=== PATIENT | female | born 1990 | race Caucasian/White ===

== ENCOUNTER 2020-11-25 11:00 | Outpatient (RCR) | payer OTHER, SELFPAY | END 2021-11-09 10:16 | disposition home or self-care (01) | LOC: HO.OT 11:00 | PROVIDERS: PCP Nurse Practitioner Family; Visit Provider Nurse Practitioner Family | DX: M77.8 Other enthesopathies, not elsewhere classified (principal) | CPT/HCPCS: 29125; 97033; 97035; 97110; 97140; 97167; 97530; 97760 ==

== ENCOUNTER 2020-12-10 07:59 | Outpatient (REF) | payer OTHER, SELFPAY ==
[2020-12-10 10:23] LABS: Hematocrit 41.5 % (37-47); Hemoglobin 13.4 g/dl (12.0-16.0); Mean Corpuscular HGB Conc 32.3 g/dl (31.0-35.0); Mean Corpuscular Volume 89.8 fL (80-98); Mean Platelet Volume 11.3 fL (9.4-12.3); Platelet Count 269 X10*3/uL (160-400); Red Blood Count 4.62 X10*6/uL (4.20-5.50); Red Cell Distribution Width 12.5 % (11.0-16.0); White Blood Count 8.5 X10*3/uL (4.8-10.8)
[2020-12-10 10:45] LABS: Alanine Aminotransferase 24 U/L (0-31); Albumin Level 4.5 g/dL (3.5-5.0); Alkaline Phosphatase 61 U/L (39-117); Anion Gap 13 (12-20); Aspartate Amino Transferase 23 U/L (5-31); Bilirubin Total 0.6 mg/dL (0.0-1.0); Blood Urea Nitrogen 8 mg/dL (9-16); C Reactive Protein 0.38 mg/dL (< or = 0.50); Calcium 9.4 mg/dL (8.4-10.2); Carbon Dioxide 26 mmol/L (22-29); Chloride 106 mmol/L (96-108); Estimated Glomerular Filt Rate > 60; Glucose Random 101 mg/dL (60-115); Potassium 4.5 mmol/L (3.3-5.1); Sodium 140 mmol/L (135-145); Total Protein 7.6 g/dL (6.5-8.0)
[2020-12-10 11:17] LABS: Erythrocyte Sedimentation Rate 12 MM/HR (0-20)
[2020-12-11 22:37] LABS: Transglutaminase Ab IgG 1 U/mL; Transglutaminase IgA 1 U/mL
== END 2020-12-10 08:00 | disposition home or self-care (01) ==
LOC: HO.LAB 07:59
PROVIDERS: PCP Nurse Practitioner Family; Visit Provider Nurse Practitioner Family
DX: R10.9 Unspecified abdominal pain (principal); R19.4 Change in bowel habit
CPT/HCPCS: 36415; 80053; 83516; 85027; 85652; 86140

== ENCOUNTER → 2020-12-24 07:58 | Outpatient (BNVA) | payer OTHER, SELFPAY | PROVIDERS: PCP Nurse Practitioner Family; Referring Provider Nurse Practitioner Family; Visit Provider Nurse Practitioner Family ==

== ENCOUNTER 2020-12-26 21:04 | Emergency (ER) | payer OTHER, SELFPAY ==
--- NOTE | ~2020-12-26 | CT_ITS ---
EXAMINATION: CT ABDOMEN AND PELVIS WITHOUT CONTRAST CLINICAL INFORMATION: Right lower quadrant pain. COMPARISON: None TECHNIQUE: Multidetector volumetric imaging was performed from the superior aspect of the liver through the pubic symphysis. Sagittal and coronal reformatted images were obtained on the technologist's workstation. This CT examination was performed using dose optimization techniques as appropriate, variously including the following: *Automated exposure control *Adjustment of mA and/or kV according to patient size (this includes techniques or standardized protocols for targeted exams where dose is matched to indication/reason for exam; i.e. extremities or head) *Use of iterative reconstruction technique DLP: 807 mGy-cm FINDINGS: LUNG BASES: The visualized lung bases are unremarkable. LIVER, GALLBLADDER, AND BILIARY TREE: The liver is normal in size, shape, and attenuation. No focal hepatic lesion or biliary ductal dilatation is present. Status post cholecystectomy. PANCREAS: Unremarkable. SPLEEN: Unremarkable. ADRENAL GLANDS: Unremarkable. KIDNEYS AND URETERS: The kidneys are normal in size, shape, and attenuation. No hydronephrosis, hydroureter, or calculi seen. No perinephric stranding. BLADDER: Unremarkable. GASTROINTESTINAL TRACT: The small and large bowel are unremarkable. The appendix is unremarkable. ABDOMINAL WALL: No significant hernia is appreciated. LYMPH NODES: Normal. VASCULAR: Unremarkable. PELVIC VISCERA: Unremarkable. OSSEOUS STRUCTURES: Unremarkable. CT/CT abdomen pelvis wo con IMPRESSION: Normal CT scan abdomen and pelvis. Normal appendix.
[2020-12-26 21:24] VITALS: BP 146/94; PULSE 84; RESP 22; TEMP 37.1; O2SAT 95; BMI 33.6
--- NOTE | 2020-12-26 21:54 | ED_ITS ---
HPI - Abdominal Pain General Chief Complaint: Abdominal Pain Stated Complaint: APPENDIX? Time Seen by Provider: 12/26/20 21:54 Source: patient Mode of arrival: ambulatory Limitations: no limitations History of Present Illness HPI narrative: Patient with history of IBS chronic abdominal pain issues noticed pain in the right side of abdomen for last 2 hour acute onset associated with nausea and vomiting which is chronic and had multiple times but pain on the right side is new patient feel it is appendicitis no history of kidney stone or urinary complaints no fever or chills no diarrhea no blood in stool or urine Related Data Home Medications Medication Instructions Recorded Confirmed citalopram 40 mg tablet 40 mg PO DAILY 12/09/20 ondansetron 4 mg disintegrating 4 mg PO Q8H 12/09/20 tablet hyoscyamine sulfate 0.125 mg tablet 0.25 mg PO QID PRN 12/10/20 Previous Rx's Medication Instructions Recorded lactobacillus combination no.8 3 3,000 mmu cells PO DAILY #30 cap 12/10/20 billion cell capsule bisacodyl 5 mg tablet,delayed 10 mg PO ONCE 1 Days #2 tab 12/24/20 release docusate sodium 100 mg capsule 100 mg PO BEDTIME #10 cap 12/24/20 polyethylene glycol 3350 17 238 g PO ONCE #238 g 12/24/20 gram/dose oral powder psyllium husk 0.52 gram capsule 0.52 g PO DAILY #30 cap 12/24/20 Allergies Allergy/AdvReac Type Severity Reaction Status Date / Time No Known Allergies Allergy Verified 12/24/20 08:15 Review of Systems Review of Systems Constitutional : No Weight loss, No Fever, No Chills , anxious++ ENT/Mouth : No sore throat, No Rhinorrhea Eyes: No Eye Pain, No Swelling Cardiovascular : No Chest Pain, no palpitations Respiratory : No Cough, No Sputum, no shortness of breath Gastrointestinal : + Nausea, +Vomiting, No Diarrhea, +abdominal Pain, no black stools Genitourinary : No Dysuria, No Urinary Frequency Musculoskeletal : No joint pain, No Myalgias, No Joint Swelling Skin : No Skin Lesions, No rash Neuro : No Weakness, No Numbness, No Dizziness, No Headache Psych : No Anxiety/Panic, No Depression Heme/Lymph: No Bruising, No Lymphadenopathy Endocrine : No Polyuria, No Polydipsia All other systems reviewed and are negative Physical Exam Vital Signs: Vital Signs: Last Vital Signs Temp 98.4 F 12/26/20 22:51 Pulse 71 12/26/20 22:51 Resp 18 12/26/20 22:51 BP 111/65 12/26/20 22:51 Pulse Ox 97 12/26/20 22:51 Body Mass Index 33.6 Appearance: Alert. Oriented X3. Moderate distress. Anxious Eyes: PERRLA, No Nystagmus ENT: Pharynx normal. Oral Mucosa moist Neck: Normal inspection. Neck supple. CVS: Normal heart rate and rhythm. Pulses normal. Respiratory: No respiratory distress. Equal air entry bilateral, no wheezing/rales/rhonchi Abdomen: Soft , tenderness in the right mid and lower quadrant with guarding, no rebound tenderness . Bowel sounds are present, no mass palpable, no CVA tenderness Skin: Skin warm and dry. Normal skin color. Normal skin turgor. Extremities: No lower extremity edema. No calf tenderness Neuro: Oriented X 3. No motor deficit. No sensory deficit.No cerebellar signs , cranial nerves II-XII intact MDM - Abdominal Pain MDM Narrative Medical decision making narrative: Patient's CT scan negative for any acute pathology likely abdominal pain is from gas bubble or IBS labs are stable to discharge patient home Lab Data Attestation: I reviewed the patient's lab results. Result diagrams: 12/26/20 22:09 12/26/20 22:09 Labs: Lab Results 12/26/20 12/26/20 Range/Units 22:09 22:09 WBC 7.8 (4.8-10.8) X10*3/uL RBC 4.37 (4.20-5.50) X10*6/uL Hgb 12.8 (12.0-16.0) g/dl Hct 38.3 (37-47) % MCV 87.6 (80-98) fL MCH 29.3 (27.0-33.0) pg MCHC 33.4 (31.0-35.0) g/dl RDW 12.5 (11.0-16.0) % Plt Count 244 (160-400) X10*3/uL MPV 11.2 (9.4-12.3) fL Immature Gran % (Auto) 0.1 (0.0-0.4) % Neut % (Auto) 58.3 (45-73) % Lymph % (Auto) 32.7 (20-40) % [place] % (Auto) 8.0 (2-11) % Eos % (Auto) 0.5 (0-4) % Baso % (Auto) 0.4 (0-2) % Lymph # (Auto) 2.5 (1.2-4.9) X10*3/uL [place] # (Auto) 0.6 (0.1-1.2) X10*3/uL Eos # (Auto) 0.0 (0.0-0.4) X10*3/uL Baso # (Auto) 0.0 (0.0-0.2) X10*3/uL Abs Immat Gran (auto) 0.01 (0.00-0.03) X10*3/uL Absolute Neuts (auto) 4.5 (2.0-8.3) X10*3/uL Absolute Nucleated RBC 0.000 (0.0-0.012) X10*3/uL Nucleated RBC % (auto) 0.0 (0.0-0.2) /100WBC Sodium 141 (135-145) mmol/L Potassium 3.9 (3.3-5.1) mmol/L Chloride 108 (96-108) mmol/L Carbon Dioxide 24 (22-29) mmol/L Anion Gap 13 (12-20) BUN 10 (9-16) mg/dL Creatinine 0.95 (0.5-1.4) mg/dL Estim Creat Clear Calc 105.7 Estimated GFR > 60 Random Glucose 108 (60-115) mg/dL Calcium 9.4 (8.4-10.2) mg/dL Total Bilirubin 0.5 (0.0-1.0) mg/dL Direct Bilirubin 0.2 (0.0-0.5) mg/dL AST 26 (5-31) U/L ALT 30 (0-31) U/L Alkaline Phosphatase 58 (39-117) U/L Total Protein 7.1 (6.5-8.0) g/dL Albumin 4.2 (3.5-5.0) g/dL Lipase 13 (8-78) U/L Discharge Plan Discharge Clinical Impression: Abdominal pain Qualifiers: Abdominal location: right lower quadrant Qualified Code(s): R10.31 - Right lower quadrant pain Patient Disposition: Home, Self-Care Instructions: Abdominal Pain (ED) Additional Instructions: Follow-up with your primary care doctor continue taking medication as prescribed by PCP Prescriptions: No Action citalopram 40 mg tablet 40 mg PO DAILY RF: 0 ondansetron 4 mg tablet,disintegrating 4 mg PO Q8H RF: 0 hyoscyamine sulfate 0.125 mg tablet 0.25 mg PO QID PRNRF: 0 Adult Probiotic 3 billion cell capsule 3,000 mmu cells PO DAILY Qty: 30 RF: 2 bisacodyl [Dulcolax (bisacodyl)] 5 mg tablet,delayed release (DR/EC) 10 mg PO ONCE 1 Days Qty: 2 RF: 0 docusate sodium 100 mg capsule 100 mg PO BEDTIME Qty: 10 RF: 0 polyethylene glycol 3350 [Miralax] 17 gram/dose powder 238 g PO ONCE Qty: 238 RF: 0 psyllium husk [Metamucil] 0.52 gram capsule 0.52 g PO DAILY Qty: 30 RF: 4 PMFSH Past Medical History Medical History Cholecystectomy planned Surgical History Hx of tonsillectomy Family History Family History Mother Heart disease Social History Social History Household Members: None Alcohol intake: never Patient Tobacco Use Status: Never used Tobacco Substance Use Type: Marijuana Advance Directives: No Advance Directives Information Provided: Yes Current occupational status: employed 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
[2020-12-26 22:14] LABS: MANUAL DIFF FLAG NO
[2020-12-26 22:15] LABS: Basophils Percent Auto 0.4 % (0-2); Eosinophils Percent Auto 0.5 % (0-4); Hematocrit 38.3 % (37-47); Hemoglobin 12.8 g/dl (12.0-16.0); Imm Gran Abs Auto 0.01 X10*3/uL (0.00-0.03); Imm Gran Pct Auto 0.1 % (0.0-0.4); Lymphocytes Absolute Auto 2.5 X10*3/uL (1.2-4.9); Lymphocytes Percent Auto 32.7 % (20-40); Mean Corpuscular HGB Conc 33.4 g/dl (31.0-35.0); Mean Corpuscular Hemoglobin 29.3 pg (27.0-33.0); Mean Corpuscular Volume 87.6 fL (80-98); Mean Platelet Volume 11.2 fL (9.4-12.3); Monocytes Absolute Auto 0.6 X10*3/uL (0.1-1.2); Neutrophils Absolute Auto 4.5 X10*3/uL (2.0-8.3); Neutrophils Percent Auto 58.3 % (45-73); Platelet Count 244 X10*3/uL (160-400); Red Blood Count 4.37 X10*6/uL (4.20-5.50); Red Cell Distribution Width 12.5 % (11.0-16.0); White Blood Count 7.8 X10*3/uL (4.8-10.8)
[2020-12-26] MEDS: Ketorolac Tromethamine 30 MG/ML VIAL IVPUSH (22:39)
[2020-12-26] MEDS: 0.9 % Sodium Chloride 1,000 ML 999 ML IVCONT (22:39)
[2020-12-26] MEDS: ondansetron HCL 4 MG/2 ML VIAL IVPUSH (22:40)
[2020-12-26 22:50] LABS: Alanine Aminotransferase 30 U/L (0-31); Albumin Level 4.2 g/dL (3.5-5.0); Alkaline Phosphatase 58 U/L (39-117); Anion Gap 13 (12-20); Aspartate Amino Transferase 26 U/L (5-31); Bilirubin Direct 0.2 mg/dL (0.0-0.5); Bilirubin Total 0.5 mg/dL (0.0-1.0); Blood Urea Nitrogen 10 mg/dL (9-16); Calcium 9.4 mg/dL (8.4-10.2); Carbon Dioxide 24 mmol/L (22-29); Chloride 108 mmol/L (96-108); Creatinine Clr Calc Pharmacy 105.7; Estimated Glomerular Filt Rate > 60; Glucose Random 108 mg/dL (60-115); Lipase 13 U/L (8-78); Potassium 3.9 mmol/L (3.3-5.1); Sodium 141 mmol/L (135-145); Total Protein 7.1 g/dL (6.5-8.0)
[2020-12-26 22:51] VITALS: BP 111/65; PULSE 71; RESP 18; TEMP 36.9; O2SAT 97
--- NOTE | 2020-12-27 00:01 | PC.NURSE ---
PT GIVEN A LIST OF PROVIDERS.
== END 2020-12-27 00:02 | disposition home or self-care (01) ==
PROVIDERS: Emergency Provider Internal Medicine
DX: R10.31 Right lower quadrant pain (principal)
CPT/HCPCS: 36415; 74176; 80048; 80076; 83690; 85025; 96361; 96374; 96375; 99284; J1885; J2405

== ENCOUNTER 2020-12-31 12:54 | Outpatient (REF) | payer OTHER, SELFPAY ==
--- NOTE | ~2020-12-31 | US_ITS ---
EXAMINATION: US PELVIS TRANSVAGINAL CLINICAL INFORMATION: Right lower quadrant pain COMPARISON: CT scan of December 26, 2020. TECHNIQUE: Transcutaneous and transvaginal pelvic ultrasound. Transvaginal scanning was performed after voiding to better evaluate the endometrium and adnexa. FINDINGS: The uterus measures 8.3 x 3.5 x 4.2 cm. The uterus is anteverted. No suspicious abnormalities region of the cervix. 3 mm nabothian cyst present. The uterine contour is smooth. The endometrium measures 0.5 cm. No focal abnormalities within the myometrium. The right ovary measures approximately 2.6 x 2.4 x 2.1 cm. The calculated right ovarian volume is approximately 6.7 mL. No suspicious right adnexal findings. The left ovary measures 3.0 x 2.2 x 2.3 cm. The calculated left ovarian volume is approximately 7.9 mL. No left adnexal abnormality appreciated. No free pelvic fluid. US/US pelvic and transvaginal IMPRESSION: No suspicious abnormality appreciated.
== END 2020-12-31 12:55 | disposition home or self-care (01) ==
LOC: HO.HMGCX 12:54
PROVIDERS: PCP Nurse Practitioner Family; Visit Provider Physician Assistant
DX: R10.31 Right lower quadrant pain (principal)
CPT/HCPCS: 76830; 76856

== ENCOUNTER 2021-01-01 09:38 | Emergency (ER) | payer OTHER, SELFPAY ==
--- NOTE | ~2021-01-01 | CT_ITS ---
EXAMINATION: CT ABDOMEN AND PELVIS WITH CONTRAST CLINICAL INFORMATION: Right-sided abdominal pain status post laparoscopic cholecystectomy COMPARISON: Previous CT of the abdomen and pelvis 12/26/2020 and pelvic ultrasound 12/31/2020 TECHNIQUE: Multidetector volumetric images were obtained from the superior aspect of the liver through the pubic symphysis following administration 85 mL of Omnipaque 350 intravenous contrast. Sagittal and coronal reformatted images were obtained on the technologist's workstation. Oral contrast: Yes This CT examination was performed using dose optimization techniques as appropriate, variously including the following: *Automated exposure control *Adjustment of mA and/or kV according to patient size (this includes techniques or standardized protocols for targeted exams where dose is matched to indication/reason for exam; i.e. extremities or head) *Use of iterative reconstruction technique DLP: 885 mGy-cm FINDINGS: LUNG BASES: The visualized lung bases are unremarkable. LIVER, GALLBLADDER, AND BILIARY TREE: The liver is normal in size, shape, and attenuation. No focal hepatic lesion or biliary ductal dilatation is present. The gallbladder has been removed. PANCREAS: Unremarkable. SPLEEN: Unremarkable. ADRENAL GLANDS: Unremarkable. KIDNEYS AND URETERS: The kidneys are normal in size, shape, and attenuation. No hydronephrosis, hydroureter, or calculi seen. No perinephric stranding. BLADDER: Unremarkable. GASTROINTESTINAL TRACT: There is question of mild wall thickening of the colon, particularly the distal transverse colon and left colon. Small and large bowel is otherwise unremarkable. The appendix is unremarkable. The stomach is unremarkable. ABDOMINAL WALL: No significant hernia is appreciated. LYMPH NODES: Normal. VASCULAR: Unremarkable. PELVIC VISCERA: Unremarkable. OSSEOUS STRUCTURES: Unremarkable. CT/CT abdomen pelvis w con IMPRESSION: Question mild colitis of the colon.
--- NOTE | 2021-01-01 09:42 | ED_ITS ---
HPI - Abdominal Pain General Chief Complaint: Abdominal Pain Stated Complaint: abd pain Time Seen by Provider: 01/01/21 09:41 Source: patient Mode of arrival: ambulatory Limitations: no limitations History of Present Illness HPI narrative: 30 yo female with hx of IBS seen on 12/26 for abdominal pain at at that time had CT scan which showed no acute pathology. She also had US of pelvis on 12/31 that was normal MD elicited complaint: abdominal pain Pertinent past history: other (IBS) Onset (ago): day(s) (since Monday) Pain Consistency: constant Location: RLQ Severity: severe Quality: stabbing and burning Exacerbating factors: nothing Relieving factors: nothing Associated symptoms: nausea, vomiting and diarrhea Related Data Home Medications Medication Instructions Recorded Confirmed citalopram 40 mg tablet 40 mg PO DAILY 12/09/20 ondansetron 4 mg disintegrating 4 mg PO Q8H 12/09/20 tablet hyoscyamine sulfate 0.125 mg tablet 0.25 mg PO QID PRN 12/10/20 Previous Rx's Medication Instructions Recorded lactobacillus combination no.8 3 3,000 mmu cells PO DAILY #30 cap 12/10/20 billion cell capsule bisacodyl 5 mg tablet,delayed 10 mg PO ONCE 1 Days #2 tab 12/24/20 release docusate sodium 100 mg capsule 100 mg PO BEDTIME #10 cap 12/24/20 polyethylene glycol 3350 17 238 g PO ONCE #238 g 12/24/20 gram/dose oral powder psyllium husk 0.52 gram capsule 0.52 g PO DAILY #30 cap 12/24/20 ciprofloxacin HCl 500 mg PO BID 7 Days #14 tab 01/01/21 metoclopramide HCl [Reglan] 10 mg PO Q6H PRN #20 tab 01/01/21 metronidazole [Flagyl] 500 mg PO BID 7 Days #14 tab 01/01/21 oxycodone 5 mg PO Q6H PRN #14 tab 01/01/21 Allergies Allergy/AdvReac Type Severity Reaction Status Date / Time No Known Allergies Allergy Verified 12/24/20 08:15 Review of Systems Review of Systems Constitutional : No Weight loss, No Fever, No Chills ENT/Mouth : No sore throat, No Rhinorrhea Eyes: No Swelling, No Redness Cardiovascular : No Chest Pain, No SOB, NoEdema Respiratory : No Cough, No Sputum, No Wheezing Gastrointestinal : Positive Nausea, Positive Vomiting, positive Diarrhea, positive abdominal Pain, No Hematochezia, No Melena Genitourinary : No Dysuria, No Urinary Frequency, No Hematuria, No Urgency Musculoskeletal : No joint pain, No Myalgias, No Joint Swelling Skin : No Skin Lesions, No rash Neuro : No Weakness, No Numbness, No Dizziness, No Headache Psych : No Anxiety/Panic, No Depression Heme/Lymph: No Bruising, No Lymphadenopathy Endocrine : No Polyuria, No Polydipsia All other systems reviewed and are negative. Physical Exam Vital Signs: Vital Signs: Last Vital Signs Temp 98.4 F 01/01/21 09:43 Pulse 57 01/01/21 14:33 Resp 16 01/01/21 14:33 BP 102/68 01/01/21 14:33 Pulse Ox 97 01/01/21 14:33 Body Mass Index 33.3 Appearance: Alert. Oriented X3. No acute distress. Eyes: Pupils equal, round and reactive to light. ENT: Pharynx normal. Neck: Normal inspection. Neck supple. CVS: Normal heart rate and rhythm. Pulses normal. Respiratory: No respiratory distress. Breath sounds normal. Abdomen: Soft and mild RLQ ttp no rebound or guarding Skin: Skin warm and dry. Normal skin color. Normal skin turgor. Extremities: No lower extremity edema. No calf ttp Neuro: Oriented X 3. No motor deficit. No sensory deficit. Course Course Course Narrative: given LFTs will repeat CT Scan for retained stone CT scan mild colitis, able to tolerate PO, labs stable VS stable can follow up with GI as outpatient her pain is on R side which does not correlate with her c/o R sided pain bili normal mild bump in LFTs - no concern for hepatitis, has been taking extra strength tylenol for pain for the last week doubt hepatotoxicity can follow up and recheck taking 3 to 4 doses a day, prior cholecystectomy, message sent to TEODORO Christian from GI as Leeanne is supposed to follow with her, will start on antibiotics and pain medications - we discussed stopping tylenol prior to DC MDM - Abdominal Pain MDM Narrative Medical decision making narrative: 30 yo female with hx of IBS seen on 12/26 for abdominal pain at at that time had CT scan which showed no acute pathology. She also had US of pelvis on 12/31 that was normal at this time will repeat labs, UA, IVF, IV medications for symptoms control, just had CT scan and US if sig lab derangement will consider repeat imaging. Differential Diagnosis Differential diagnosis: Likely abdominal pain and gastroenteritis; Unlikely calculus of kidney, mesenteric ischemia and ovarian cyst Lab Data Result diagrams: 01/01/21 10:02 01/01/21 10:02 Labs: Lab Results 01/01/21 01/01/21 01/01/21 Range/Units 10:02 10:02 11:09 WBC 8.2 (4.8-10.8) X10*3/uL RBC 4.52 (4.20-5.50) X10*6/uL Hgb 13.4 (12.0-16.0) g/dl Hct 39.3 (37-47) % MCV 86.9 (80-98) fL MCH 29.6 (27.0-33.0) pg MCHC 34.1 (31.0-35.0) g/dl RDW 12.5 (11.0-16.0) % Plt Count 277 (160-400) X10*3/uL MPV 11.5 (9.4-12.3) fL Immature Gran % (Auto) 0.1 (0.0-0.4) % Neut % (Auto) 62.9 (45-73) % Lymph % (Auto) 30.5 (20-40) % [place] % (Auto) 6.0 (2-11) % Eos % (Auto) 0.1 (0-4) % Baso % (Auto) 0.4 (0-2) % Lymph # (Auto) 2.5 (1.2-4.9) X10*3/uL [place] # (Auto) 0.5 (0.1-1.2) X10*3/uL Eos # (Auto) 0.0 (0.0-0.4) X10*3/uL Baso # (Auto) 0.0 (0.0-0.2) X10*3/uL Abs Immat Gran (auto) 0.01 (0.00-0.03) X10*3/uL Absolute Neuts (auto) 5.1 (2.0-8.3) X10*3/uL Absolute Nucleated RBC 0.000 (0.0-0.012) X10*3/uL Nucleated RBC % (auto) 0.0 (0.0-0.2) /100WBC Sodium 140 (135-145) mmol/L Potassium 4.3 (3.3-5.1) mmol/L Chloride 109 H (96-108) mmol/L Carbon Dioxide 21 L (22-29) mmol/L Anion Gap 14 (12-20) BUN 7 L (9-16) mg/dL Creatinine 0.82 (0.5-1.4) mg/dL Estim Creat Clear Calc 121.9 Estimated GFR > 60 Random Glucose 99 (60-115) mg/dL Calcium 9.2 (8.4-10.2) mg/dL Magnesium 2.2 (1.6-2.6) mg/dL Total Bilirubin 0.6 (0.0-1.0) mg/dL Direct Bilirubin 0.2 (0.0-0.5) mg/dL AST 131 H (5-31) U/L ALT 136 H (0-31) U/L Alkaline Phosphatase 65 (39-117) U/L C-Reactive Protein 0.29 (< or = 0.50) mg/dL Total Protein 7.5 (6.5-8.0) g/dL Albumin 4.4 (3.5-5.0) g/dL Lipase 15 (8-78) U/L Urine Color YELLOW Urine Appearance CLEAR Urine pH 7.0 (5.0-8.0) Ur Specific Cand[place] 1.010 (1.005-1.025) Urine Protein NEG (NEG-TRACE) MG/DL Urine Glucose (UA) NEG (NEG) MG/DL Urine Ketones 15 (NEG) MG/DL Urine Blood NEG (NEG) Urine Nitrite NEG (NEG) Ur Leukocyte Esterase NEG (NEG) Urine Test (NEGATIVE) 01/01/21 Range/Units 11:09 WBC (4.8-10.8) X10*3/uL RBC (4.20-5.50) X10*6/uL Hgb (12.0-16.0) g/dl Hct (37-47) % MCV (80-98) fL MCH (27.0-33.0) pg MCHC (31.0-35.0) g/dl RDW (11.0-16.0) % Plt Count (160-400) X10*3/uL MPV (9.4-12.3) fL Immature Gran % (Auto) (0.0-0.4) % Neut % (Auto) (45-73) % Lymph % (Auto) (20-40) % [place] % (Auto) (2-11) % Eos % (Auto) (0-4) % Baso % (Auto) (0-2) % Lymph # (Auto) (1.2-4.9) X10*3/uL [place] # (Auto) (0.1-1.2) X10*3/uL Eos # (Auto) (0.0-0.4) X10*3/uL Baso # (Auto) (0.0-0.2) X10*3/uL Abs Immat Gran (auto) (0.00-0.03) X10*3/uL Absolute Neuts (auto) (2.0-8.3) X10*3/uL Absolute Nucleated RBC (0.0-0.012) X10*3/uL Nucleated RBC % (auto) (0.0-0.2) /100WBC Sodium (135-145) mmol/L Potassium (3.3-5.1) mmol/L Chloride (96-108) mmol/L Carbon Dioxide (22-29) mmol/L Anion Gap (12-20) BUN (9-16) mg/dL Creatinine (0.5-1.4) mg/dL Estim Creat Clear Calc Estimated GFR Random Glucose (60-115) mg/dL Calcium (8.4-10.2) mg/dL Magnesium (1.6-2.6) mg/dL Total Bilirubin (0.0-1.0) mg/dL Direct Bilirubin (0.0-0.5) mg/dL AST (5-31) U/L ALT (0-31) U/L Alkaline Phosphatase (39-117) U/L C-Reactive Protein (< or = 0.50) mg/dL Total Protein (6.5-8.0) g/dL Albumin (3.5-5.0) g/dL Lipase (8-78) U/L Urine Color Urine Appearance Urine pH (5.0-8.0) Ur Specific [place] (1.005-1.025) Urine Protein (NEG-TRACE) MG/DL Urine Glucose (UA) (NEG) MG/DL Urine Ketones (NEG) MG/DL Urine Blood (NEG) Urine Nitrite (NEG) Ur Leukocyte Esterase (NEG) Urine Test NEGATIVE (NEGATIVE) Discharge Plan Discharge Clinical Impression: Colitis, Elevated liver function tests Abdominal pain Qualifiers: Abdominal location: right lower quadrant Qualified Code(s): R10.31 - Right lower quadrant pain Vomiting Qualifiers: Vomiting type: unspecified Vomiting Intractability: non-intractable Nausea presence: with nausea Qualified Code(s): R11.2 - Nausea with vomiting, unspecified Patient Disposition: Home, Self-Care Instructions: Colitis (ED) Additional Instructions: return to ED for any worsening symptoms or concerns Prescriptions: New ciprofloxacin HCl 500 mg tablet 500 mg PO BID 7 Days Qty: 14 RF: 0 metoclopramide HCl [Reglan] 10 mg tablet 10 mg PO Q6H PRN (Reason: nausea and vomiting) Qty: 20 RF: 0 metronidazole [Flagyl] 500 mg tablet 500 mg PO BID 7 Days Qty: 14 RF: 0 oxycodone 5 mg tablet 5 mg PO Q6H PRN (Reason: pain) Qty: 14 RF: 0 No Action citalopram 40 mg tablet 40 mg PO DAILY RF: 0 ondansetron 4 mg tablet,disintegrating 4 mg PO Q8H RF: 0 hyoscyamine sulfate 0.125 mg tablet 0.25 mg PO QID PRNRF: 0 Adult Probiotic 3 billion cell capsule 3,000 mmu cells PO DAILY Qty: 30 RF: 2 bisacodyl [Dulcolax (bisacodyl)] 5 mg tablet,delayed release (DR/EC) 10 mg PO ONCE 1 Days Qty: 2 RF: 0 docusate sodium 100 mg capsule 100 mg PO BEDTIME Qty: 10 RF: 0 polyethylene glycol 3350 [Miralax] 17 gram/dose powder 238 g PO ONCE Qty: 238 RF: 0 psyllium husk [Metamucil] 0.52 gram capsule 0.52 g PO DAILY Qty: 30 RF: 4 Referrals: Marie Archibald MD [Physician] - 2 days (call Monday to follow up with Anahi) Interventions: ED Discharge Assessment Last Done: 01/01/21 15:16 Discharge Date/Time: 01/01/21 15:16 [facility] Past Medical History Attestation statement: The following information was validated with the patient. Medical History (Updated 01/01/21 @ 16:02 by Susan Coppola DO) Cholecystectomy planned IBS (irritable bowel syndrome) Surgical History Hx laparoscopic cholecystectomy Hx of tonsillectomy Family History Family History Mother Heart disease Social History Social History Household Members: None Alcohol intake: never Patient Tobacco Use Status: Never used Tobacco Use of substances other than those prescribed or required for medical reasons: Yes Substance Use Type: Marijuana Advance Directives: Yes Advance Directives Information Provided: No Advance Directives on File: No Current occupational status: employed 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
[2021-01-01 09:43] VITALS: BP 128/96; PULSE 92; RESP 20; TEMP 36.9; O2SAT 98; BMI 33.3
[2021-01-01] MEDS: 0.9 % Sodium Chloride 1,000 ML 999 ML IVCONT ×2 (10:04→12:01)
[2021-01-01] MEDS: diphenhydrAMINE HCL 50 MG/ML VIAL 25 MG IVPUSH (10:09)
[2021-01-01] MEDS: Ketorolac Tromethamine 30 MG/ML VIAL IVPUSH (10:10)
[2021-01-01 10:11] LABS: MANUAL DIFF FLAG NO
[2021-01-01 10:13] LABS: Basophils Percent Auto 0.4 % (0-2); Eosinophils Percent Auto 0.1 % (0-4); Hematocrit 39.3 % (37-47); Hemoglobin 13.4 g/dl (12.0-16.0); Imm Gran Abs Auto 0.01 X10*3/uL (0.00-0.03); Imm Gran Pct Auto 0.1 % (0.0-0.4); Lymphocytes Absolute Auto 2.5 X10*3/uL (1.2-4.9); Lymphocytes Percent Auto 30.5 % (20-40); Mean Corpuscular HGB Conc 34.1 g/dl (31.0-35.0); Mean Corpuscular Hemoglobin 29.6 pg (27.0-33.0); Mean Corpuscular Volume 86.9 fL (80-98); Mean Platelet Volume 11.5 fL (9.4-12.3); Monocytes Absolute Auto 0.5 X10*3/uL (0.1-1.2); Neutrophils Absolute Auto 5.1 X10*3/uL (2.0-8.3); Neutrophils Percent Auto 62.9 % (45-73); Platelet Count 277 X10*3/uL (160-400); Red Blood Count 4.52 X10*6/uL (4.20-5.50); Red Cell Distribution Width 12.5 % (11.0-16.0); White Blood Count 8.2 X10*3/uL (4.8-10.8)
[2021-01-01] MEDS: Metoclopramide HCl 10 MG/2 ML VIAL IVPUSH (10:13)
--- NOTE | 2021-01-01 10:17 | MHC.CM.ED ---
Received notification from Niya SILVER that patient was able to ambulate to the bathroom without pain and wants to be discharged home. Met with patient and daughter. Both are agreeable to discharge home with referral to [facility]. Patient was active with [facility] in the past. Referral made via [facility]. Patient's daughter will transport patient home. Dr Coppola and Niya SILVER aware. Continue to monitor for d/c needs.
[2021-01-01 10:18] VITALS: BP 131/80; PULSE 74; RESP 18; O2SAT 100
[2021-01-01 10:42] LABS: Alanine Aminotransferase 136 U/L (0-31); Albumin Level 4.4 g/dL (3.5-5.0); Alkaline Phosphatase 65 U/L (39-117); Aspartate Amino Transferase 131 U/L (5-31); Bilirubin Direct 0.2 mg/dL (0.0-0.5); Bilirubin Total 0.6 mg/dL (0.0-1.0); C Reactive Protein 0.29 mg/dL (< or = 0.50); Lipase 15 U/L (8-78); Magnesium 2.2 mg/dL (1.6-2.6); Total Protein 7.5 g/dL (6.5-8.0)
[2021-01-01 11:08] VITALS: BP 97/57; PULSE 67; RESP 17; O2SAT 96
[2021-01-01 11:29] LABS: Appearance Urine CLEAR; Color Urine YELLOW; Glucose Urine UA NEG (NEG); Leukocyte Esterase Urine NEG (NEG); Nitrite Urine NEG (NEG); Urine Blood NEG (NEG); Urine Ketones 15 MG/DL (NEG); Urine Protein NEG (NEG-TRACE)
[2021-01-01 11:29] LABS: Anion Gap 14 (12-20); Blood Urea Nitrogen 7 mg/dL (9-16); Calcium 9.2 mg/dL (8.4-10.2); Carbon Dioxide 21 mmol/L (22-29); Chloride 109 mmol/L (96-108); Creatinine Clr Calc Pharmacy 121.9; Estimated Glomerular Filt Rate > 60; Glucose Random 99 mg/dL (60-115); Potassium 4.3 mmol/L (3.3-5.1); Sodium 140 mmol/L (135-145)
[2021-01-01 11:30] LABS: UPreg QC Valid YES; Urine Pregnancy NEGATIVE (NEGATIVE)
[2021-01-01 12:00] VITALS: BP 123/72; PULSE 61; RESP 17; O2SAT 99
[2021-01-01] MEDS: iohexoL 350 MG/ML 100 ML INFUS..BTL IV (12:42)
[2021-01-01 14:33] VITALS: BP 102/68; PULSE 57; RESP 16; O2SAT 97
[2021-01-01] MEDS: oxyCODONE HCl Immed Release 5 MG TABLET 10 MG PO (15:10)
== END 2021-01-01 15:16 | disposition home or self-care (01) ==
PROVIDERS: Emergency Provider Emergency Medicine; PCP Nurse Practitioner Family
DX: K52.9 Noninfective gastroenteritis and colitis, unspecified (principal); R94.5 Abnormal results of liver function studies
CPT/HCPCS: 36415; 74177; 80048; 80076; 81003; 81025; 83690; 83735; 85025; 86140; 96361; 96374; 96375; 99284; 99285; J1200; J1885; J2765; Q9967

== ENCOUNTER 2021-01-20 11:25 | Day surgery (SDC) | payer OTHER, SELFPAY ==
--- NOTE | 2021-01-19 10:41 | P.CONAN_ITS ---
Documented by User: Jessica Castillo 01/19/21 10:42 HPI - Anesthesia Eval Consult details Narrative: 30yo F for Colonoscopy [facility] Past Medical History Medical History Cholecystectomy planned IBS (irritable bowel syndrome) Family History Family History Mother Heart disease Surgical History Surgical History Hx laparoscopic cholecystectomy Hx of tonsillectomy Social History Social History Household Members: None Alcohol intake: never Patient Tobacco Use Status: Never used Tobacco Substance Use Type: Marijuana Advance Directives: No Advance Directives Information Provided: Yes Current occupational status: employed 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 Meds Allergies Allergy/AdvReac Type Severity Reaction Status Date / Time No Known Allergies Allergy Verified 01/20/21 11:38 Home Medications Medication Instructions Recorded Confirmed Last Taken Type citalopram 40 mg tablet 40 mg PO DAILY 12/09/20 Unknown History ondansetron 4 mg disintegrating 4 mg PO Q8H 12/09/20 Unknown History tablet hyoscyamine sulfate 0.125 mg tablet 0.25 mg PO QID PRN 12/10/20 Unknown History Exam Exam Date and Time: January 19, 2021 1041 Pertinent Lab Results Pertinent Lab Results: Laboratory Tests 01/01/21 01/01/21 10:02 10:02 WBC 8.2 Hgb 13.4 Hct 39.3 Plt Count 277 Sodium 140 Potassium 4.3 Chloride 109 H Carbon Dioxide 21 L BUN 7 L Creatinine 0.82 Assessment and Plan Assessment Anesthesia Assessment: Chart Reviewed Documented by User: Tanisha Acevedo 01/20/21 11:46 [facility] Past Medical History Medical History Cholecystectomy planned IBS (irritable bowel syndrome) Family History Family History Mother Heart disease Surgical History Surgical History Hx laparoscopic cholecystectomy Hx of tonsillectomy Social History Social History Household Members: None Alcohol intake: never Patient Tobacco Use Status: Never used Tobacco Substance Use Type: Marijuana Advance Directives: No Advance Directives Information Provided: Yes Current occupational status: employed 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 Meds Allergies Allergy/AdvReac Type Severity Reaction Status Date / Time No Known Allergies Allergy Verified 01/20/21 11:38 Home Medications Medication Instructions Recorded Confirmed Last Taken Type citalopram 40 mg tablet 40 mg PO DAILY 12/09/20 Unknown History ondansetron 4 mg disintegrating 4 mg PO Q8H 12/09/20 Unknown History tablet hyoscyamine sulfate 0.125 mg tablet 0.25 mg PO QID PRN 12/10/20 Unknown History Exam Airway Mallampati Class: II TM Dist: >3cm Neck ROM: Full Assessment and Plan Assessment Anesthesia Assessment: Anesthesia Plan Discussed and Chart Reviewed Final Anesthetic Review NPO: Yes ASA Class: II Final Preanesthetic Review: No Changes in Pt Med Stat, Meds/Allgs Chart Reviewed, Consent Obtained/Reviewed and Anes Risks/Benef Reviewed Patient Risk: Low Procedure Risk: Low Assessment/Block/Sedation in SS: Assess/Block/Sedation-SS Anesthetic Plan Anesthetic Plan: MAC: Disposition: Standard PACU
--- NOTE | 2021-01-20 11:34 | MHC.SHP ---
Pre-Procedural Eval Section A Date of Service: 01/20/21 Section B Chief Complaint: Change in Bowel Habit, IBS Relevant Social History: Other (specify) (THC) Present Medications: see Short Stay Collaborative assessment Medical History: Significant History (Cholecystectomy planned IBS (irritable bowel syndrome)) History of Previous Operations: Relevant previous surgery/procedure and date(s) (Hx laparoscopic cholecystectomy Hx of tonsillectomy) Allergies: Allergies Allergy/AdvReac Type Severity Reaction Status Date / Time No Known Allergies Allergy Verified 12/24/20 08:15 Review of Systems Sugical H&P ROS: Negative: Constitution, Cardiovascular, Respiratory, Neurological, Psychiatric, Hem-Onc, Allergic/Immunologic, Gastrointestinal, Genitourinary, Musculoskeletal, Integumentary, Endocrine and Eyes/Ears/Nose/Throat Exam Surgical H&P Exam: Normal: HEENT, Normal: Heart, Normal: Lungs, Normal: Extremities, Normal: Abdomen, Normal: Skin and Normal: Neurological Plan Diagnosis/Plan: Unchanged I have reviewed the history and physical and performed a pertinent physical examination on my patient. No changes have occurred unless specified.
[2021-01-20 11:46] VITALS: BP 129/104; PULSE 104; RESP 18; TEMP 36.1; O2SAT 97; BMI 32.1
--- NOTE | 2021-01-20 11:47 | PM.OP ---
Brief Operative Note Date of Service: 01/20/21 Pre-op diagnosis: altered bowel habits Post-op diagnosis: same Procedure: see op note Surgeon: Ileana Myers MD Anesthesia: MAC Was an Rag Willow Operator used for this Procedure?: No Estimated blood loss (mL): 0 Condition: stable Disposition: PACU
--- NOTE | 2021-01-20 11:48 | W.PM.OPN ---
Operative Note Operative Note Date of Service: 01/20/21 Narrative: Operative Information Procedure Description: Colonoscopy COLONOSCOPY Instrument: Olympus variable stiffness pediatric scope 190L Colonoscopy Monitoring: Vital signs and clinical assessment, continuous EKG monitoring, Pulse oximetry, Carbon Dioxide monitoring and blood pressure monitoring were done throughout the procedure. Colon withdrawal time was [] minutes. Procedure: The patient was placed in the left lateral decubitis position and pre-procedure medications were administered. After a digital rectal examination of the ano-rectum, the video colonoscope was inserted into the rectum and advanced through the colon to the cecum/TI. The colonoscope was slowly withdrawn in a retrograde panoramic fashion and the colon mucosa was carefully examined including a retroflexed view of the rectum. Findings and interventions are described below. Procedure Difficulty: easy Findings: Terminal Ileum-normal, bx taken Bx taken from right colon, left/transverse and rectum in different jars Cecum:normal Ascending Colon: normal Transverse Colon -normal Descending Colon:normal Sigmoid Colon: normal Rectum: Retroflexion with small internal hemorrhoids, grade I, mild rectal erythema noted Anorectum - normal Colon preparation: [place] Bowel Preparation Scale Right colon; 2 Transverse colon: 3 Left colon; 2 (0 = Unprepared colon segment with mucosa not seen due to solid stool that cannot be cleared. 1 = Portion of mucosa of the colon segment seen, but other areas of the colon segment not well seen due to staining, residual stool and/or opaque liquid. 2 = Minor amount of residual staining, small fragments of stool and/or opaque liquid, but mucosa of colon segment seen well. 3 = Entire mucosa of colon segment seen well with no residual staining, small fragments of stool or opaque liquid) Impression and Post Procedure Diagnosis: internal hemorrhoids Plan: High fiber diet leaflet Avoid straining at stool, epsom salts and sitz bath, anusol supps or cream as needed Repeat Colonoscopy aged 45 years or earlier if clinically indicated Above findings were reviewed with the patient and relevant handouts were provided if indicated.
[2021-01-20] MEDS: Lactated Ringers 1,000 ML 100 ML IVCONT (11:56)
--- NOTE | 2021-01-20 11:57 | PC.NURSE ---
per Dr Adame no HCG needed she spoke with the pt and is waving the order.
[2021-01-20 12:33] VITALS: BP 149/83; PULSE 82; RESP 16; TEMP 36.2; O2SAT 98
[2021-01-20 12:48] VITALS: BP 117/79; PULSE 70; RESP 16; TEMP 36.2; O2SAT 99
== END 2021-01-20 13:30 | disposition home or self-care (01) ==
PROVIDERS: PCP Nurse Practitioner Family; Visit Provider Internal Medicine Gastroenterology
PROC: 0DJD8ZZ Inspection of Lower Intestinal Tract, Via Natural or Artificial Opening Endoscopic (ICD-10-PCS; CPT 45378; principal; 2021-01-20 13:10)
DX: R19.4 Change in bowel habit (principal); K52.9 Noninfective gastroenteritis and colitis, unspecified; K62.89 Other specified diseases of anus and rectum; K64.0 First degree hemorrhoids; Z79.899 Other long term (current) drug therapy; Z90.49 Acquired absence of other specified parts of digestive tract; F12.90 Cannabis use, unspecified, uncomplicated
CPT/HCPCS: 45380; 88305

== ENCOUNTER → 2021-02-08 13:38 | Outpatient (BNVA) | payer OTHER, SELFPAY | PROVIDERS: PCP Nurse Practitioner Family; Visit Provider Nurse Practitioner Family | DX: K58.9 Irritable bowel syndrome, unspecified (principal) | CPT/HCPCS: 99212 ==

== ENCOUNTER 2021-05-10 10:59 | Day surgery (SDC) | payer OTHER, SELFPAY ==
--- NOTE | 2021-05-07 08:32 | P.CONAN_ITS ---
Documented by User: Jessica Castillo NP 05/07/21 08:34 HPI - Anesthesia Eval Consult details Narrative: 31yo F for Upper Endoscopy s/p [place] 01/2021 with [facility] REPLACED BY [facility] Past Medical History Medical History Cholecystectomy planned IBS (irritable bowel syndrome) Family History Family History Mother Heart disease Surgical History Surgical History Hx laparoscopic cholecystectomy Hx of tonsillectomy Social History Social History Household Members: None Alcohol intake: never Patient Tobacco Use Status: Never used Tobacco Substance Use Type: Marijuana Advance Directives: No Advance Directives Information Provided: Yes Current occupational status: employed 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4 Hct 39.3 Plt Count 277 Sodium 140 Potassium 4.3 Chloride 109 H Carbon Dioxide 21 L BUN 7 L Creatinine 0.82 Assessment and Plan Assessment Anesthesia Assessment: Chart Reviewed Documented by User: Aleida North MD 05/10/21 11:21 REPLACED BY [facility] Past Medical History Medical History Cholecystectomy planned IBS (irritable bowel syndrome) Family History Family History Mother Heart disease Surgical History Surgical History Hx laparoscopic cholecystectomy Hx of tonsillectomy Social History Social History Household Members: None Alcohol intake: never Patient Tobacco Use Status: Never used Tobacco Substance Use Type: Marijuana Advance Directives: No Advance Directives Information Provided: Yes Current occupational status: employed 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
[2021-05-10 11:22] VITALS: BMI 30.5
--- NOTE | 2021-05-10 11:40 | MHC.SHP ---
Pre-Procedural Eval Section A Date of Service: 05/10/21 Section B Chief Complaint: Gastroparesis Relevant Family History (Specify if Yes): No Relevant Social History: Other (specify) (THC) Present Medications: see Short Stay Collaborative assessment Medical History: Significant History (IBS) History of Previous Operations: Relevant previous surgery/procedure and date(s) (Hx laparoscopic cholecystectomy Hx of tonsillectomy) Allergies: Allergies Allergy/AdvReac Type Severity Reaction Status Date / Time No Known Allergies Allergy Verified 02/08/21 13:46 Review of Systems Sugical H&P ROS: Negative: Constitution, Cardiovascular, Respiratory, Neurological, Psychiatric, Hem-Onc, Allergic/Immunologic, Gastrointestinal, Genitourinary, Musculoskeletal, Integumentary, Endocrine and Eyes/Ears/Nose/Throat Exam Surgical H&P Exam: Normal: HEENT, Normal: Heart, Normal: Lungs, Normal: Extremities, Normal: Abdomen, Normal: Skin and Normal: Neurological Plan Diagnosis/Plan: Unchanged I have reviewed the history and physical and performed a pertinent physical examination on my patient. No changes have occurred unless specified.
[2021-05-10 11:44] VITALS: BMI 30.5
[2021-05-10] MEDS: Lactated Ringers 1,000 ML 100 ML IVCONT (11:51)
--- NOTE | 2021-05-10 12:08 | PM.OP ---
Brief Operative Note Date of Service: 05/10/21 Pre-op diagnosis: nausea, abdo pain Post-op diagnosis: same Procedure: see op note Surgeon: Ileana Myers MD Anesthesia: MAC Was an Household Appliances Salesperson used for this Procedure?: No Estimated blood loss (mL): 0 Condition: stable Disposition: PACU
--- NOTE | 2021-05-10 12:08 | W.PM.OPN ---
Operative Note Operative Note Date of Service: 05/10/21 Narrative: Procedure Description: EGD FLEXIBLE TRANSORAL UPPER GASTROINTESTINAL ENDOSCOPY UPPER ENDOSCOPY Consent: Indications for the procedure and potential complications of bleeding, perforation, reaction to medications and missed diagnosis were discussed with the patient and informed consent was obtained. Instrument: Olympus GIF H 190 J mid size upper endoscope Monitoring: Vital signs and clinical assessment, continuous EKG monitoring, Pulse oximetry, Carbon Dioxide monitoring and blood pressure monitoring were done throughout the procedure. Procedure: The patient was placed in the left lateral decubitis position and pre-procedure medications were administered and a bite block was placed. The endoscope was inserted into the mouth and advanced under direct vision to the third part of duodenum. A careful inspection was made as the upper endoscope was withdrawn including a retroflexed examination of the proximal stomach; Findings and interventions are described below. Findings: Larynx:normal Esophagus: GE junction at 40 cm, diaphragm hiatus at 40 cm, mild esophagitis at GEJ, bx taken as well as random esophagus in separate jars Stomach: mild gastric erythema. Biopsies were obtained. Grade 2 flap valve on retroflexed examination of the cardia. There was reduced gastric movement. Duodenum: Normal bulb and descending duodenum, bx taken Intervention: Biopsies as noted above Impression/Findings: esophagitis possible gastroparesis PLAN: await bx, if neg then gastric emptying study consider trial of PPI if not taking
[2021-05-10 12:16] VITALS: BP 107/56; PULSE 72; RESP 18; TEMP 36.6; O2SAT 98
[2021-05-10 12:35] VITALS: BP 130/82; PULSE 76; RESP 18; TEMP 36.2; O2SAT 99
== END 2021-05-10 13:45 | disposition home or self-care (01) ==
PROVIDERS: PCP Nurse Practitioner Family; Visit Provider Internal Medicine Gastroenterology
PROC: 0DJ08ZZ Inspection of Upper Intestinal Tract, Via Natural or Artificial Opening Endoscopic (ICD-10-PCS; CPT 43235; principal; 2021-05-10 12:10)
DX: R10.9 Unspecified abdominal pain (principal); R11.0 Nausea; K20.90 Esophagitis, unspecified without bleeding; K44.9 Diaphragmatic hernia without obstruction or gangrene; Z90.49 Acquired absence of other specified parts of digestive tract; F12.90 Cannabis use, unspecified, uncomplicated; K58.9 Irritable bowel syndrome, unspecified
CPT/HCPCS: 43239; 88305; 88342

== ENCOUNTER → 2021-07-12 08:23 | Outpatient (REF) | payer OTHER, SELFPAY ==
--- NOTE | ~2021-07-12 | NM_ITS ---
EXAMINATION: DE RADIONUCLIDE SOLID FOOD GASTRIC EMPTYING 4-HOUR STUDY CLINICAL INFORMATION: Colitis and IBS x10 years. Early satiety. Gallbladder removed 06/2017. COMPARISON: None TECHNIQUE: A standard meal consisting of 4 oz of Egg Beaters brand tagged with 0.88 microcuries Tc-99m Sulfur Colloid, 8 oz water and 1 slice of toast with jelly was administered orally to the patient. Images were obtained using a dual head gamma camera in the anterior and posterior projections over of the stomach immediately post ingestion and at hourly intervals up to 4 hours post ingestion. The anterior and posterior counts at each time interval were averaged using the geometric mean and expressed as percentage of the immediate post ingestion counts. FINDINGS: There is good visualization of activity in the stomach immediately post ingestion. As the study progresses, there is fair clearance of activity from the stomach and decreased visualization of small bowel activity. By the end of the study, there is moderate retention noted in the stomach. Retention in the stomach at each time interval was: 1 hour 99% (normal 37%-90%) 2 hours 67% (normal 30%-60%) 3 hours 42% 4 hours 21% (normal 0%-10%) DE/DE gastric emptying study IMPRESSION: Abnormal 4-hour solid food gastric emptying study.
== END ==
LOC: HO.NUCMED 08:23
PROVIDERS: Visit Provider Internal Medicine Gastroenterology
DX: R68.81 Early satiety (principal)
CPT/HCPCS: 78264; A9541

== ENCOUNTER 2021-07-21 21:05 | Emergency (ER) | payer OTHER, SELFPAY ==
[2021-07-21 21:34] VITALS: BP 144/105; PULSE 83; RESP 18; TEMP 36.8; O2SAT 100; BMI 29.1
[2021-07-21 22:08] VITALS: BP 134/99; PULSE 81; RESP 18; TEMP 36.6; O2SAT 98
[2021-07-21 22:37] LABS: MANUAL DIFF FLAG NO
[2021-07-21 22:39] LABS: Basophils Absolute Auto 0.1 X10*3/uL (0.0-0.2); Basophils Percent Auto 0.4 % (0-2); Eosinophils Absolute Auto 0.1 X10*3/uL (0.0-0.4); Hematocrit 41.6 % (37.0-47.0); Hemoglobin 13.7 g/dl (12.0-16.0); Imm Gran Abs Auto 0.03 X10*3/uL (0.00-0.03); Imm Gran Pct Auto 0.3 % (0.0-0.4); Lymphocytes Absolute Auto 3.5 X10*3/uL (1.2-4.9); Lymphocytes Percent Auto 31.7 % (20-40); Mean Corpuscular HGB Conc 32.9 g/dl (31.0-35.0); Mean Corpuscular Hemoglobin 29.3 pg (27.0-33.0); Mean Corpuscular Volume 88.9 fL (80.0-98.0); Mean Platelet Volume 11.4 fL (9.4-12.3); Monocytes Absolute Auto 0.7 X10*3/uL (0.1-1.2); Monocytes Percent Auto 6.4 % (2-11); Neutrophils Absolute Auto 6.7 x10*3/uL (2.0-8.3); Neutrophils Percent Auto 60.2 % (45-73); Platelet Count 282 X10*3/uL (160-400); Red Blood Count 4.68 X10*6/uL (4.20-5.50); Red Cell Distribution Width 13.2 % (11.0-16.0); White Blood Count 11.2 X10*3/uL (4.8-10.8)
[2021-07-21 22:40] LABS: Appearance Urine CLEAR; Color Urine YELLOW; Glucose Urine UA NEG (NEG); Leukocyte Esterase Urine NEG (NEG); Nitrite Urine NEG (NEG); PH 5.5 (5.0-8.0); Specific Gravity - Urine >= 1.030 (1.005-1.025); Urine Blood NEG (NEG); Urine Ketones NEG (NEG); Urine Protein NEG (NEG-TRACE)
[2021-07-21 22:57] LABS: Alanine Aminotransferase 25 U/L (0-31); Albumin Level 4.5 g/dL (3.5-5.0); Alkaline Phosphatase 69 U/L (39-117); Anion Gap 16 (12-20); Aspartate Amino Transferase 33 U/L (5-31); Bilirubin Direct < 0.2 mg/dL (0.0-0.5); Bilirubin Total 0.6 mg/dL (0.0-1.0); Blood Urea Nitrogen 11 mg/dL (9-16); Calcium 9.6 mg/dL (8.4-10.2); Carbon Dioxide 15 mmol/L (22-29); Chloride 113 mmol/L (96-108); Creatinine Clr Calc Pharmacy 85.8; Estimated Glomerular Filt Rate 60; Glucose Random 110 mg/dL (60-115); Lipase 21 U/L (8-78); Potassium 4.7 mmol/L (3.3-5.1); Sodium 139 mmol/L (135-145); Total Protein 8.6 g/dL (6.5-8.0)
== END 2021-07-22 00:26 | disposition left against medical advice (07) ==
PROVIDERS: Emergency Provider Emergency Medicine
DX: R11.10 Vomiting, unspecified (principal)
CPT/HCPCS: 36415; 80048; 80076; 81003; 83690; 85025; 99283

== ENCOUNTER 2021-09-17 08:48 | Outpatient (REF) | payer OTHER, SELFPAY ==
[2021-09-17 11:16] LABS: Estimated Average Glucose 97 mg/dL
[2021-09-17 11:47] LABS: TSH reflex Free T4 1.67 uIU/mL (0.32-4.0)
[2021-09-20 12:41] LABS: Transglutaminase Ab IgG <1.0 U/mL; Transglutaminase IgA <1.0 U/mL
[2021-09-21 11:01] LABS: Anti Nuclear Antibody Pattern Nuclear, Homogeneous; Anti Nuclear Antibody Screen POSITIVE (NEGATIVE); Anti Nuclear Antibody Titer 1:40 titer
[2021-09-21 17:16] LABS: IgA 106 mg/dL (47-310); IgG 1534 mg/dL (600-1640); IgM 153 mg/dL (50-300)
[2021-09-21 17:31] LABS: Vitamin C 0.3 mg/dL (0.3-2.7)
[2021-09-22 00:07] LABS: Zinc 71 mcg/dL (60-130)
[2021-09-22 20:11] LABS: Lactoferrin, Fecal, Quant. 189.1 mcg/mL
[2021-09-23 20:52] LABS: Pancreatic Elastase-1 >500 mcg/g
[2021-09-24 10:26] LABS: Vitamin A 54 mcg/dL (38-98)
[2021-09-24 18:01] LABS: Histamine Plasma 1.6 ng/mL (< OR = 1.8)
== END 2021-09-17 08:49 | disposition home or self-care (01) ==
LOC: HO.LAB 08:48
PROVIDERS: PCP Nurse Practitioner Family; Visit Provider Internal Medicine Gastroenterology
DX: R10.33 Periumbilical pain (principal); G89.29 Other chronic pain; R79.82 Elevated C-reactive protein (CRP); K31.84 Gastroparesis; K52.9 Noninfective gastroenteritis and colitis, unspecified
CPT/HCPCS: 82180; 82656; 82784; 83036; 83088; 83516; 83520; 83631; 84443; 84590; 84630; 86038; 86039; 86255; 86364; 87329; 99212

== ENCOUNTER 2021-10-05 07:28 | Outpatient (REF) | payer OTHER, SELFPAY ==
--- NOTE | ~2021-10-05 | CT_ITS ---
EXAMINATION: CT ENTEROGRAPHY ABDOMEN AND PELVIS WITH CONTRAST CLINICAL INFORMATION: Periumbilical pain. COMPARISON: Previous CT of the abdomen and pelvis December 2020. TECHNIQUE: Study performed with oral VoLumen (1350 mL) and 480 mL of water to distend the abdomen. The patient was injected with 85 mL Omnipaque 350 intravenous contrast which was administered without adverse effect. Coronal and sagittal reformatted images were obtained at the technologist's workstation. This CT examination was performed using dose optimization techniques as appropriate, variously including the following: *Automated exposure control *Adjustment of mA and/or kV according to patient size (this includes techniques or standardized protocols for targeted exams where dose is matched to indication/reason for exam; i.e. extremities or head) *Use of iterative reconstruction technique DLP: 694 mGy-cm FINDINGS: GASTROINTESTINAL FINDINGS: Stomach: Well-distended and normal in appearance. Small intestine: Satisfactorily distended and normal in appearance. Large intestine: There is question of mild wall thickening and wall edema of the distal colon and rectum. There are small adjacent lymph nodes in the pelvis. No perirectal inflammatory changes are seen. The large bowel is otherwise normal. The appendix is normal. Additional findings: No abnormal enhancement of the vasa recta or significant mesenteric or retroperitoneal lymphadenopathy is seen. No abdominal abscess or fistulous tract demonstrated. ABDOMINAL AND PELVIC CT FINDINGS: Liver, gallbladder, biliary tract: The liver is normal appearing. The gallbladder has been removed. There is no biliary duct dilatation. Pancreas: Normal. Spleen: Normal. Adrenal glands and kidneys: Normal. Ureters and bladder: Normal. Lymphovascular structures: There are slightly prominent perirectal lymph nodes in the pelvis right greater than left. Largest right lymph node measures 6 mm axial image 264 series 3. Smaller more superior right perirectal lymph node axial image 259 and left perirectal lymph node axial image 256 series 3. Bones: Normal. Lung bases: Normal. CT/CT enterography IMPRESSION: Question mild wall thickening and edema of the distal colon and rectum/distal colitis and proctitis. Small perirectal lymph nodes seen in the pelvis.
[2021-10-05] MEDS: iohexoL 350 MG/ML 100 ML INFUS..BTL IV (09:07)
[2021-10-05] MEDS: Sorbitol/Mannit/Xanth Imaging 500 ML LIQUID 1500 ML PO (09:08)
== END 2021-10-05 07:29 | disposition home or self-care (01) ==
LOC: HO.CT 07:28
PROVIDERS: Visit Provider Internal Medicine Gastroenterology
DX: R10.33 Periumbilical pain (principal)
CPT/HCPCS: 74177; Q9967

== ENCOUNTER 2021-12-15 09:33 | Emergency (ER) | payer OTHER, SELFPAY ==
--- NOTE | ~2021-12-15 | CT_ITS ---
EXAMINATION: CT ABDOMEN AND PELVIS WITHOUT CONTRAST CLINICAL INFORMATION: Upper abdominal pain. History of colitis. COMPARISON: Previous CT scans most recent September 2021 TECHNIQUE: Multidetector volumetric imaging was performed from the superior aspect of the liver through the pubic symphysis. Sagittal and coronal reformatted images were obtained on the technologist's workstation. This CT examination was performed using dose optimization techniques as appropriate, variously including the following: *Automated exposure control *Adjustment of mA and/or kV according to patient size (this includes techniques or standardized protocols for targeted exams where dose is matched to indication/reason for exam; i.e. extremities or head) *Use of iterative reconstruction technique DLP: 636 mGy-cm FINDINGS: LUNG BASES: The visualized lung bases are unremarkable. LIVER, GALLBLADDER, AND BILIARY TREE: The liver is normal in size, shape, and attenuation. No focal hepatic lesion or biliary ductal dilatation is present. The gallbladder has been removed. PANCREAS: Unremarkable. SPLEEN: Unremarkable. ADRENAL GLANDS: Unremarkable. KIDNEYS AND URETERS: The kidneys are normal in size, shape, and attenuation. No hydronephrosis, hydroureter, or calculi seen. No perinephric stranding. BLADDER: The bladder is empty. GASTROINTESTINAL TRACT: There are fluid-filled loops of small and proximal large bowel suggestive of an ileus. There is low-attenuation seen in the wall of the distal colon. This is a nonspecific finding but can sequela of previous colitis. There are small perirectal lymph nodes that are stable. The appendix is normal. The stomach is unremarkable. ABDOMINAL WALL: No significant hernia is appreciated. LYMPH NODES: No enlarged lymph nodes. Small, small bowel mesentery lymph nodes. VASCULAR: Unremarkable. PELVIC VISCERA: Unremarkable. OSSEOUS STRUCTURES: Unremarkable. CT/CT abdomen pelvis wo con IMPRESSION: Fluid-filled loops of small and proximal large bowel suggestive of an ileus. No evidence of active colitis. Fleischner guidelines were followed.
[2021-12-15 09:42] VITALS: BP 143/99; PULSE 94; RESP 18; TEMP 37.3; O2SAT 99; BMI 29.7
--- NOTE | 2021-12-15 11:25 | ED.ABDPAIN ---
HPI - Abdominal Pain General Chief Complaint: Abdominal Pain Stated Complaint: Abd pain Time Seen by Provider: 12/15/21 10:57 Source: patient Mode of arrival: ambulatory Limitations: no limitations History of Present Illness HPI narrative: Patient comes to the emergency room complaining of diffuse abdominal pain, worse in the upper abdomen bilaterally. Patient has had 2 weeks of diarrhea. Patient was diagnosed with unspecified colitis approximately 15 years ago. Throughout this week, patient has had multiple doses of hyoscyamine, mesalamine, Phenergan, Zofran. States that the pain has been very intense, constant, nonradiating for the last 4 days. This morning, patient called her inspector coated fabrics Dr. Myers, who instructed her to come to the emergency room. Patient complaining of nausea as well. Patient denies fever chills, no chest pain or shortness of breath, no URI or UTI symptoms Related Data Home Medications Medication Instructions Recorded Confirmed hyoscyamine sulfate 0.125 mg tablet 0.25 mg PO QID PRN 12/10/20 venlafaxine 37.5 mg 37.5 mg PO DAILY 02/08/21 capsule,extended release 24 hr fluticasone propionate 50 spray intranasal 09/17/21 mcg/actuation nasal spray,suspension loratadine 10 mg tablet 10 mg PO DAILY PRN allergies 09/17/21 venlafaxine 75 mg capsule,extended 75 mg PO DAILY 09/17/21 release 24 hr Previous Rx's Medication Instructions Recorded mesalamine 0.375 gram 1.5 g PO DAILY #90 caps 10/26/21 capsule,extended release 24 hr metoclopramide HCl 5 mg tablet 5 mg PO TID 30 days #90 tabs 11/15/21 ondansetron 4 mg disintegrating 4 mg PO Q8H 30 days #30 tabs 11/24/21 tablet ondansetron HCl 4 mg tablet 4 mg PO Q6H PRN nausea and 12/15/21 vomiting #20 tabs prednisone 50 mg tablet 50 mg PO DAILY #6 tabs 12/15/21 Allergies Allergy/AdvReac Type Severity Reaction Status Date / Time No Known Allergies Allergy Verified 09/17/21 09:06 Review of Systems Review of Systems Constitutional : No Weight loss, No Fever, No Chills, No Night Sweats, No Fatigue, No Malaise ENT/Mouth : No Hearing loss, No Ear Pain, No Nasal Congestion, No Sinus Pain, No Hoarseness, No sore throat, No Rhinorrhea, No Swallowing Difficulty Eyes: No Eye Pain, No Swelling, No Redness, No Foreign Body, No Discharge, No Vision Changes Cardiovascular : No Chest Pain, No SOB, No Dyspnea on Exertion, No Orthopnea, No Edema, No Palpitations Respiratory : No Cough, No Sputum, No Wheezing, No Smoke Exposure, No Dyspnea Gastrointestinal : Complaining of nausea and vomiting, copious diarrhea, diffuse abdominal pain worse in the bilateral upper quadrants, bleeding hemorrhoids Genitourinary : no irregular bleeding, No Dysuria, No Urinary Frequency, No Hematuria, No Urinary Incontinence, No Urgency, No Flank Pain, No Urinary Flow Changes, No Hesitancy Musculoskeletal : No joint pain, No Myalgias, No Joint Swelling Skin : No Skin Lesions, No rash Neuro : No Weakness, No Numbness, No Paresthesias, No Loss of Consciousness, No Dizziness, No Headache Psych : No Anxiety/Panic, No Depression, No SI/HI/AH/VH, No Social Issues, Heme/Lymph: No Bruising, No Bleeding,No Lymphadenopathy Endocrine : No Polyuria, No Polydipsia, No Temperature Intolerance PMFSH Past Medical History Medical History Cholecystectomy planned Gastroparesis IBS (irritable bowel syndrome) Surgical History H/O oral surgery History of esophagogastroduodenoscopy (EGD) Hx laparoscopic cholecystectomy Hx of colonoscopy Hx of tonsillectomy Family History Family History Mother Heart disease Social History Social History Household Members: None Alcohol intake: never Patient Tobacco Use Status: Never used Tobacco Substance Use Type: Marijuana Advance Directives: No Advance Directives Information Provided: No Current occupational status: employed 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 Oriented X3. Patient looks uncomfortable Eyes: Pupils equal, round and reactive to light. ENT: Pharynx normal. Neck: Normal inspection. Neck supple. No lymph nodes noted. No crepitus CVS: Normal heart rate and rhythm. Pulses normal. Normal S1 and S2 Respiratory: No respiratory distress. Breath sounds normal. No Wheezing. No rales Abdomen: Soft , tenderness to palpation in the right and left upper quadrant and epigastrium , seems nauseous Skin: Skin warm and dry. Normal skin color. Normal skin turgor. Extremities: No lower extremity edema. No Lacerations. No Rash Neuro: Oriented X 3. No motor deficit. No sensory deficit. Moving all extremities. No slurred speech. CN 2 through 12 grossly intact Psych: calm, cooperative, normal affect Course Course Course Narrative: All the labs and imaging pending. Patient given IV fluids, Reglan, Dilaudid, loperamide For treatment, patient states that she feels much better. Patient was giving also 1 dose [address] Myers evaluated the patient as well. We both agree that patient can go home with steroids. Dr. Myers will send a scrip to the patient's pharmacy as well. Patient was p.o. challenged, did well. Patient agrees with the plan to be discharged and follow-up with gastroenterology MDM - Abdominal Pain Lab Data Result diagrams: 12/15/21 11:59 12/15/21 11:59 Labs: Lab Results 12/15/21 12/15/21 12/15/21 Range/Units 11:58 11:59 11:59 WBC 14.1 H (4.8-10.8) X10*3/uL RBC 4.45 (4.20-5.50) X10*6/uL Hgb 13.0 (12.0-16.0) g/dl Hct 39.8 (37.0-47.0) % MCV 89.4 (80.0-98.0) fL MCH 29.2 (27.0-33.0) pg MCHC 32.7 (31.0-35.0) g/dl RDW 12.5 (11.0-16.0) % Plt Count 309 (160-400) X10*3/uL MPV 10.5 (9.4-12.3) fL Immature Gran % (Auto) 0.3 (0.0-0.4) % Neut % (Auto) 81.0 H (45-73) % Lymph % (Auto) 11.6 L (20-40) % [place] % (Auto) 6.0 (2-11) % Eos % (Auto) 0.9 (0-4) % Baso % (Auto) 0.2 (0-2) % Lymph # (Auto) 1.6 (1.2-4.9) X10*3/uL [place] # (Auto) 0.8 (0.1-1.2) X10*3/uL Eos # (Auto) 0.1 (0.0-0.4) X10*3/uL Baso # (Auto) 0.0 (0.0-0.2) X10*3/uL Abs Immat Gran (auto) 0.04 H (0.00-0.03) X10*3/uL Absolute Neuts (auto) 11.4 H (2.0-8.3) x10*3/uL Absolute Nucleated RBC 0.000 (0.0-0.012) X10*3/uL Nucleated RBC % (auto) 0.0 (0.0-0.2) /100WBC ESR 11 (0-20) MM/HR Sodium (135-145) mmol/L Potassium (3.3-5.1) mmol/L Chloride (96-108) mmol/L Carbon Dioxide (22-29) mmol/L Anion Gap (12-20) BUN (9-16) mg/dL Creatinine (0.5-1.4) mg/dL Estim Creat Clear Calc Estimated GFR Random Glucose (60-115) mg/dL Lactic Acid 0.9 (0.5-2.0) mmol/L Calcium (8.4-10.2) mg/dL Magnesium (1.6-2.6) mg/dL Total Bilirubin (0.0-1.0) mg/dL Direct Bilirubin (0.0-0.5) mg/dL AST (5-31) U/L ALT (0-31) U/L Alkaline Phosphatase (39-117) U/L C-Reactive Protein (< or = 0.50) mg/dL Total Protein (6.5-8.0) g/dL Albumin (3.5-5.0) g/dL Lipase (8-78) U/L Beta HCG, Quant mIU/mL COVID-19 ([facility]REG) (Negative) COVID-19 Clin Com 12/15/21 12/15/21 Range/Units 11:59 11:59 WBC (4.8-10.8) X10*3/uL RBC (4.20-5.50) X10*6/uL Hgb (12.0-16.0) g/dl Hct (37.0-47.0) % MCV (80.0-98.0) fL MCH (27.0-33.0) pg MCHC (31.0-35.0) g/dl RDW (11.0-16.0) % Plt Count (160-400) X10*3/uL MPV (9.4-12.3) fL Immature Gran % (Auto) (0.0-0.4) % Neut % (Auto) (45-73) % Lymph % (Auto) (20-40) % [place] % (Auto) (2-11) % Eos % (Auto) (0-4) % Baso % (Auto) (0-2) % Lymph # (Auto) (1.2-4.9) X10*3/uL [place] # (Auto) (0.1-1.2) X10*3/uL Eos # (Auto) (0.0-0.4) X10*3/uL Baso # (Auto) (0.0-0.2) X10*3/uL Abs Immat Gran (auto) (0.00-0.03) X10*3/uL Absolute Neuts (auto) (2.0-8.3) x10*3/uL Absolute Nucleated RBC (0.0-0.012) X10*3/uL Nucleated RBC % (auto) (0.0-0.2) /100WBC ESR (0-20) MM/HR Sodium 140 (135-145) mmol/L Potassium 4.1 (3.3-5.1) mmol/L Chloride 108 (96-108) mmol/L Carbon Dioxide 25 (22-29) mmol/L Anion Gap 11 L (12-20) BUN 14 (9-16) mg/dL Creatinine 0.95 (0.5-1.4) mg/dL Estim Creat Clear Calc 98.5 Estimated GFR > 60 Random Glucose 106 (60-115) mg/dL Lactic Acid (0.5-2.0) mmol/L Calcium 9.3 (8.4-10.2) mg/dL Magnesium 2.1 (1.6-2.6) mg/dL Total Bilirubin 0.4 (0.0-1.0) mg/dL Direct Bilirubin 0.2 (0.0-0.5) mg/dL AST 16 D (5-31) U/L ALT 14 (0-31) U/L Alkaline Phosphatase 59 (39-117) U/L C-Reactive Protein 0.65 H (< or = 0.50) mg/dL Total Protein 7.5 (6.5-8.0) g/dL Albumin 4.4 (3.5-5.0) g/dL Lipase 21 (8-78) U/L Beta HCG, Quant < 2 mIU/mL COVID-19 (GREG) Negative (Negative) COVID-19 Clin Com See Note Imaging Data CT scan - abdomen: Radiologist's impression: FINDINGS: LUNG BASES: The visualized lung bases are unremarkable.? LIVER, GALLBLADDER, AND BILIARY TREE: The liver is normal in size, shape, and attenuation. No focal hepatic lesion or biliary ductal dilatation is present. The gallbladder has been removed. PANCREAS: Unremarkable.? SPLEEN: Unremarkable.? ADRENAL GLANDS: Unremarkable.? KIDNEYS AND URETERS: The kidneys are normal in size, shape, and attenuation. No hydronephrosis, hydroureter, or calculi seen. No perinephric stranding. ? BLADDER: The bladder is empty. GASTROINTESTINAL TRACT: There are fluid-filled loops of small and proximal large bowel suggestive of an ileus. There is low-attenuation seen in the wall of the distal colon. This is a nonspecific finding but can sequela of previous colitis. There are small perirectal lymph nodes that are stable. The appendix is normal. The stomach is unremarkable.? ABDOMINAL WALL: No significant hernia is appreciated.? LYMPH NODES: No enlarged lymph nodes. Small, small bowel mesentery lymph nodes. VASCULAR: Unremarkable. PELVIC VISCERA: Unremarkable.? OSSEOUS STRUCTURES: Unremarkable.? CT/CT abdomen pelvis wo con IMPRESSION: Fluid-filled loops of small and proximal large bowel suggestive of an ileus. No evidence of active colitis. Fleischner guidelines were followed. Discharge Plan Discharge Clinical Impression: Colitis Patient Disposition: Home, Self-Care Instructions: Colitis (ED) Additional Instructions: Please follow-up with your primary care physician tomorrow. If you have any worsening or new symptoms, please return to the emergency room or call 911 Prescriptions: New ondansetron HCl 4 mg tablet 4 mg PO Q6H PRN (Reason: nausea and vomiting) Qty: 20 0RF prednisone 50 mg tablet 50 mg PO DAILY Qty: 6 0RF No Action mesalamine 0.375 gram capsule,extended release 24hr 1.5 g PO DAILY Qty: 90 0RF metoclopramide HCl 5 mg tablet 5 mg PO TID 30 Days Qty: 90 1RF ondansetron 4 mg tablet,disintegrating 4 mg PO Q8H 30 Days Qty: 30 0RF hyoscyamine sulfate 0.125 mg tablet 0.25 mg PO QID PRN venlafaxine 37.5 mg capsule,extended release 24hr 37.5 mg PO DAILY venlafaxine 75 mg capsule,extended release 24hr 75 mg PO DAILY fluticasone propionate 50 mcg/actuation spray,suspension intranasal loratadine 10 mg tablet 10 mg PO DAILY PRN (Reason: allergies)
[2021-12-15 12:02] VITALS: RESP 18
[2021-12-15] MEDS: HYDROmorphone HCl 1 MG/ML SYRINGE IVPUSH (12:02)
[2021-12-15 12:03] LABS: MANUAL DIFF FLAG NO
[2021-12-15] MEDS: Loperamide HCl 2 MG CAPSULE 4 MG PO (12:03)
[2021-12-15] MEDS: 0.9 % Sodium Chloride 1,000 ML 999 ML IVCONT (12:03)
[2021-12-15 12:05] LABS: Basophils Percent Auto 0.2 % (0-2); Eosinophils Absolute Auto 0.1 X10*3/uL (0.0-0.4); Eosinophils Percent Auto 0.9 % (0-4); Hematocrit 39.8 % (37.0-47.0); Imm Gran Abs Auto 0.04 X10*3/uL (0.00-0.03); Imm Gran Pct Auto 0.3 % (0.0-0.4); Lymphocytes Absolute Auto 1.6 X10*3/uL (1.2-4.9); Lymphocytes Percent Auto 11.6 % (20-40); Mean Corpuscular HGB Conc 32.7 g/dl (31.0-35.0); Mean Corpuscular Hemoglobin 29.2 pg (27.0-33.0); Mean Corpuscular Volume 89.4 fL (80.0-98.0); Mean Platelet Volume 10.5 fL (9.4-12.3); Monocytes Absolute Auto 0.8 X10*3/uL (0.1-1.2); Neutrophils Absolute Auto 11.4 x10*3/uL (2.0-8.3); Platelet Count 309 X10*3/uL (160-400); Red Blood Count 4.45 X10*6/uL (4.20-5.50); Red Cell Distribution Width 12.5 % (11.0-16.0); White Blood Count 14.1 X10*3/uL (4.8-10.8)
[2021-12-15 12:15] LABS: Lactic Acid 0.9 mmol/L (0.5-2.0)
[2021-12-15 12:19] LABS: COVID-19 Test Negative (Negative); IDNOW Serial# 16C4AD1C
[2021-12-15 12:23] LABS: Alanine Aminotransferase 14 U/L (0-31); Albumin Level 4.4 g/dL (3.5-5.0); Alkaline Phosphatase 59 U/L (39-117); Anion Gap 11 (12-20); Aspartate Amino Transferase 16 U/L (5-31); Bilirubin Direct 0.2 mg/dL (0.0-0.5); Bilirubin Total 0.4 mg/dL (0.0-1.0); Blood Urea Nitrogen 14 mg/dL (9-16); C Reactive Protein 0.65 mg/dL (< or = 0.50); Calcium 9.3 mg/dL (8.4-10.2); Carbon Dioxide 25 mmol/L (22-29); Chloride 108 mmol/L (96-108); Creatinine Clr Calc Pharmacy 98.5; Estimated Glomerular Filt Rate > 60; Glucose Random 106 mg/dL (60-115); Lipase 21 U/L (8-78); Magnesium 2.1 mg/dL (1.6-2.6); Potassium 4.1 mmol/L (3.3-5.1); Sodium 140 mmol/L (135-145); Total Protein 7.5 g/dL (6.5-8.0)
[2021-12-15 12:25] LABS: HCG Quantitative < 2 mIU/mL
[2021-12-15 12:49] LABS: Erythrocyte Sedimentation Rate 11 MM/HR (0-20)
[2021-12-15 14:38] VITALS: BP 106/75; PULSE 75; RESP 16; TEMP 36.7; O2SAT 98
[2021-12-15 15:54] LABS: Appearance Urine CLEAR; Color Urine YELLOW; Glucose Urine UA NEG (NEG); Leukocyte Esterase Urine NEG (NEG); Nitrite Urine NEG (NEG); PH 5.5 (5.0-8.0); Specific Gravity - Urine >= 1.030 (1.005-1.025); Urine Blood NEG (NEG); Urine Ketones NEG (NEG); Urine Protein NEG (NEG-TRACE)
[2021-12-15] MEDS: methylPREDNISolone Sod Succ 125 MG/2 ML VIAL IVPUSH (16:44)
== END 2021-12-15 16:50 | disposition home or self-care (01) ==
PROVIDERS: Emergency Provider Emergency Medicine; PCP Nurse Practitioner Family
DX: K52.9 Noninfective gastroenteritis and colitis, unspecified (principal); Z20.822 Contact with and (suspected) exposure to COVID-19; R10.9 Unspecified abdominal pain
CPT/HCPCS: 36415; 74176; 80048; 80076; 81003; 83605; 83690; 83735; 84702; 85025; 85652; 86140; 87040; 87635; 96361; 96374; 96375; 99284; J1170; J2550; J2930

== ENCOUNTER → 2022-03-04 09:25 | Outpatient (BNVA) | payer OTHER, SELFPAY | PROVIDERS: PCP Nurse Practitioner Family; Visit Provider Internal Medicine Gastroenterology | DX: K52.9 Noninfective gastroenteritis and colitis, unspecified (principal) | CPT/HCPCS: 99212 ==

== ENCOUNTER 2022-03-13 18:17 | Emergency (ER) | payer OTHER, SELFPAY ==
--- NOTE | ~2022-03-13 | XR_ITS ---
EXAMINATION: XR SINUSES CLINICAL INFORMATION: Sinus pain. COMPARISON: None TECHNIQUE: 4 views of the sinuses were obtained. FINDINGS: Paranasal sinuses appear clear without air-fluid levels. No fractures are identified. No radiodense foreign bodies. XR/XR sinus min 3V IMPRESSION: Unremarkable examination.
[2022-03-13 19:00] VITALS: BP 126/90; PULSE 81; RESP 18; TEMP 36.7; O2SAT 98; BMI 29.1
--- NOTE | 2022-03-13 20:44 | ED_ITS ---
HPI - Headache General Chief Complaint: Headache Stated Complaint: Headache X 3 Days Time Seen by Provider: 03/13/22 20:44 Source: patient Mode of arrival: ambulatory Limitations: no limitations History of Present Illness HPI Narrative: Patient with significant past medical history no significant migraines in the past flew from [place] 3 days ago after landing noticed severe headache mostly localized in the frontal area no nasal discharge no fever no cough, no photosensitivity no neck pain Related Data Home Medications Medication Instructions Recorded Confirmed hyoscyamine sulfate 0.125 mg tablet 0.25 mg PO QID PRN 12/10/20 venlafaxine 75 mg capsule,extended 75 mg PO DAILY 09/17/21 release 24 hr pantoprazole 40 mg tablet,delayed 40 mg PO BID 03/04/22 release Previous Rx's Medication Instructions Recorded mesalamine 0.375 gram 1.5 g PO DAILY #90 caps 12/16/21 capsule,extended release 24 hr ondansetron 4 mg disintegrating 4 mg PO Q8H 30 days #30 tabs 12/22/21 tablet azithromycin 500 mg tablet 500 mg PO DAILY 6 days #6 tabs 03/04/22 budesonide 3 mg 9 mg PO DAILY 3 months #270 ea 03/04/22 capsule,delayed,extended release [id number]-mgnrfealrztmz-[id number] 1 cap PO Q6H PRN headache #20 caps 03/13/22 50 mg-300 mg-40 mg capsule (Fioricet) Allergies Allergy/AdvReac Type Severity Reaction Status Date / Time No Known Allergies Allergy Verified 03/04/22 09:34 Review of Systems Review of Systems: Yes all other systems are reviewed and are negative PMFSH Past Medical History Medical History Cholecystectomy planned Gastroparesis IBS (irritable bowel syndrome) Surgical History H/O oral surgery History of esophagogastroduodenoscopy (EGD) Hx laparoscopic cholecystectomy Hx of colonoscopy Hx of tonsillectomy Family History Family History Mother Heart disease Social History Social History Household Members: None Alcohol intake: never Patient Tobacco Use Status: Never used Tobacco Substance Use Type: Marijuana Advance Directives: No Advance Directives Information Provided: No Current occupational status: employed 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 Oriented X3. No acute distress. Eyes: PERRLA, No Nystagmus ENT: Pharynx normal. Oral Mucosa moist, tenderness on the ethmoid area nasal turbinates inflamed no discharge Neck: Normal inspection. Neck supple. CVS: Normal heart rate and rhythm. Pulses normal. Respiratory: No respiratory distress. Equal air entry bilateral, Abdomen: Soft and nontender. Bowel sounds are present, Skin: Skin warm and dry. Normal skin color. Normal skin turgor. Extremities: No lower extremity edema. No calf tenderness Neuro: Oriented X 3. MDM - Headache MDM Narrative Medical decision making narrative: Patient with sinus vaccume headache discharge patient home on Fioricet and Afrin nasal spray Lab Data Labs: Lab Results 03/13/22 Range/Units 21:09 S. pyogenes GrpA CARLOTTA Negative (Negative) Discharge Plan Discharge Clinical Impression: Sinus headache Patient Disposition: Home, Self-Care Instructions: Acute Headache (ED) Additional Instructions: Your headache is likely from sinus vaccume headache Use Afrin nasal drops as advised Ibuprofen for pain Prescriptions: New [id number]-vsdogbmdbkylx-fmwu [Fioricet] 50-300-40 mg capsule 1 cap PO Q6H PRN (Reason: headache) Qty: 20 0RF No Action mesalamine 0.375 gram capsule,extended release 24hr 1.5 g PO DAILY Qty: 90 2RF ondansetron 4 mg tablet,disintegrating 4 mg PO Q8H 30 Days Qty: 30 0RF hyoscyamine sulfate 0.125 mg tablet 0.25 mg PO QID PRN venlafaxine 75 mg capsule,extended release 24hr 75 mg PO DAILY pantoprazole 40 mg tablet,delayed release (DR/EC) 40 mg PO BID budesonide 3 mg capsule,delayed,extend.release 9 mg PO DAILY 90 Days Qty: 270 0RF azithromycin 500 mg tablet 500 mg PO DAILY 6 Days Qty: 6 0RF
[2022-03-13] MEDS: Oxymetazoline HCl 0.05 % Nasal 15 ML SPRAY 2 SPRAY NOSTRIL-B (21:09)
[2022-03-13 21:35] LABS: Strep A Nucleic Acid Negative (Negative)
[2022-03-13] MEDS: Butalb/Acetamin/Caff 50/325/40 TABLET 1 TAB PO (23:17)
== END 2022-03-13 23:24 | disposition home or self-care (01) ==
PROVIDERS: Emergency Provider Internal Medicine; PCP Nurse Practitioner Family
DX: R51.9 Headache, unspecified (principal); M54.2 Cervicalgia; R09.81 Nasal congestion; Z79.899 Other long term (current) drug therapy
CPT/HCPCS: 36415; 70220; 87651; 99283

== ENCOUNTER 2022-03-16 06:30 | Emergency (ER) | payer OTHER, SELFPAY ==
[2022-03-16 06:32] VITALS: BP 136/9; PULSE 91; RESP 20; TEMP 36.6; O2SAT 97; BMI 29.0
[2022-03-16 10:22] LABS: Appearance Urine Clear; Color Urine Yellow; Glucose Urine UA Negative (Negative); Leukocyte Esterase Urine Negative (Negative); Nitrite Urine Negative (Negative); PH 5.5 (5.0-9.0); Specific Gravity - Urine 1.015 (1.005-1.025); Urine Blood Negative (Negative); Urine Ketones 15 mg/dL (Negative); Urine Protein Negative (Neg-Trace)
[2022-03-16 10:33] LABS: COVID-19 Test Negative (Negative); IDNOW Serial# 16C4AD1C
[2022-03-16 10:52] LABS: MANUAL DIFF FLAG NO
[2022-03-16 10:53] LABS: Basophils Percent Auto 0.1 % (0-2); Hematocrit 43.1 % (37.0-47.0); Hemoglobin 14.2 g/dl (12.0-16.0); Imm Gran Abs Auto 0.03 X10*3/uL (0.00-0.03); Imm Gran Pct Auto 0.4 % (0.0-0.4); Lymphocytes Absolute Auto 1.3 X10*3/uL (1.2-4.9); Lymphocytes Percent Auto 16.2 % (20-40); Mean Corpuscular HGB Conc 32.9 g/dl (31.0-35.0); Mean Corpuscular Hemoglobin 29.3 pg (27.0-33.0); Mean Platelet Volume 10.8 fL (9.4-12.3); Monocytes Absolute Auto 0.2 X10*3/uL (0.1-1.2); Monocytes Percent Auto 2.7 % (2-11); Neutrophils Absolute Auto 6.2 x10*3/uL (2.0-8.3); Neutrophils Percent Auto 80.6 % (45-73); Platelet Count 316 X10*3/uL (160-400); Red Blood Count 4.84 X10*6/uL (4.20-5.50); Red Cell Distribution Width 12.4 % (11.0-16.0); White Blood Count 7.7 X10*3/uL (4.8-10.8)
[2022-03-16 10:55] LABS: UPreg QC Valid YES; Urine Pregnancy NEGATIVE (NEGATIVE)
--- NOTE | 2022-03-16 11:09 | ED.HA ---
HPI - Headache General Chief Complaint: Headache Stated Complaint: persistent headache even after meds Time Seen by Provider: 03/16/22 09:14 Source: patient Mode of arrival: ambulatory Limitations: no limitations History of Present Illness HPI Narrative: 32-year-old female presenting to the ER with complaints of a headache for the past 5 days that has been persistent. She reports she has had dehydration headaches when she was younger and she has had a migraine headache in the past. She reports it feels like her regular headaches when she has had in the past although it is lasting longer and not being treated with normal therapy she has had in the past that has treated her dehydration/migraine headaches. She reports this headache feels like pressure sensation on the anterior/frontal aspect of her head. She reports it is worse when she leans over forward she feels more pressure/burning sensation. She reports she was seen here and was told I have a vacuum headache was discharge with Fioricet although no symptomatic relief . Therefore she called her primary care provider yesterday because she believes she possibly had a sinus infection and she was started on doxycycline. She reports she took 2 doses of doxycycline. She was also started on prednisone she has also started that and no symptomatic relief. She reports that she has used Tylenol, Motrin, Sudafed, Afrin and multiple other hrlo-jjd-cgycbym medications and the medications we prescribed her and no symptomatic relief. She does report she recently traveled [place] came back by plane on 03/11/2022. She denies any sick contacts that she is aware of. She denies any fevers, chills, dizziness, neck pain / stiffness, changes in vision, sore throat, chest pain or shortness of breath, jaw pain, nausea/ vomiting, back pain, abdominal pain, lower extremity edema or calf tenderness, recent head injury or trauma or falls, history of HIV or hypertension or hypercoagulation disorder, any recent tick bites that she is aware of, any CO2 exposure/toxicity, she denies any recent spinal / epidural procedure, any new medications, any recent URI, or any close contacts or any others with similar symptoms. She denies any other symptoms complaints or concerns at this time. MD elicited complaint: headache and migraine Onset (ago): day(s) (5) Onset description: gradually Location: frontal Severity: moderate Quality & Timing: constant, pressure ( /Burning sensation) and similar to previous headaches Exacerbating factors: other ( leaning forward) Relieving factors: rest Context: other ( cannot recall when and how it started) Treatments prior to arrival: acetaminophen, ibuprofen and migraine medication Related Data Home Medications Medication Instructions Recorded Confirmed hyoscyamine sulfate 0.125 mg tablet 0.25 mg PO QID PRN 12/10/20 venlafaxine 75 mg capsule,extended 75 mg PO DAILY 09/17/21 release 24 hr pantoprazole 40 mg tablet,delayed 40 mg PO BID 03/04/22 release Previous Rx's Medication Instructions Recorded mesalamine 0.375 gram 1.5 g PO DAILY #90 caps 12/16/21 capsule,extended release 24 hr ondansetron 4 mg disintegrating 4 mg PO Q8H 30 days #30 tabs 12/22/21 tablet azithromycin 500 mg tablet 500 mg PO DAILY 6 days #6 tabs 03/04/22 budesonide 3 mg 9 mg PO DAILY 3 months #270 ea 03/04/22 capsule,delayed,extended release yritcecywv-fvtdhrcofmlmt-rmiosqdr 1 cap PO Q6H PRN headache #20 caps 03/13/22 50 mg-300 mg-40 mg capsule (Fioricet) diphenhydramine HCl 25 mg tablet 50 mg PO TID PRN sleep #14 tabs 03/16/22 (Benadryl Allergy) ketorolac 10 mg tablet 10 mg PO Q8H pain #14 tabs 03/16/22 Allergies Allergy/AdvReac Type Severity Reaction Status Date / Time No Known Allergies Allergy Verified 03/16/22 06:31 Review of Systems Review of Systems: Constitutional : No changes in activity, No lethargy, No recent prior head injury, No agitation, No increased fussiness ENT/Mouth : No Ear Pain, No Nasal discharge/drainage Eyes: No Eye Pain, No Swelling, No Redness, No Foreign Body, No Vision Changes Cardiovascular : No Chest Pain, No SOB Respiratory : No Cough Gastrointestinal : No Nausea, No Vomiting, No abdominal Pain Genitourinary : No Dysuria, No Urinary Frequency, No Urinary Incontinence, No Urgency, No Flank Pain Musculoskeletal : No joint pain, No neck stiffness, No back pain/injury Skin : No lacerations Neuro : No unsteady gait, No Paresthesias, No Loss of Consciousness, No altered mental status, No dizziness, + Headache Denies past medical history of HIV, recent trauma, coagulopathy, recent spinal/ epidural procedure, new medication, URI symptoms, close contacts with similar symptoms, tick bite, or known CO2 exposure. Yes all other systems are reviewed and are negative [facility] Past Medical History Attestation statement: The following information was validated with the patient. 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 Blood pressure normal. Heart rate normal. Respiration rate normal. Temperature normal. Oxygen saturation normal. Appearance: Alert. Oriented X3. No acute distress. Head: Normal external exam. Normocephalic. Atraumatic. Able to rotate head bilaterally. Eyes: PERRLA. EOMI. No nystagmus noted. Conjunctiva and sclera normal. Eyelids normal. Corneal reflex normal. ENT: EAC normal. TM's Normal. Hearing normal. Pharynx normal. Uvula midline. tongue midline. Moist mucous membranes. No trismus noted. No drooling noted. No muffled voice noted. Neck: Normal inspection. Neck supple. FROM. No adenopathy. Thyroid Normal. No meningeal signs. No neck mass noted. CVS: Normal heart rate and rhythm. Heart sound normal. No murmurs noted. Pulses normal throughout. Respiratory: No respiratory distress. Painless inspiration. Breath sounds normal. No wheezes/rales/rhonchi noted. Chest nontender. No accessory muscle usage noted or decreased air movement noted. Back: Full range of motion noted. Skin: Skin warm and dry. Normal skin color. Normal skin turgor. No rashes/lesions/lacerations noted. Extremities: Extremities exhibit normal range of motion. Extremities nontender. Able to shrug shoulders bilaterally and keep up against resistance. Neuro: Oriented X 3. No motor deficit. No sensory deficit. Reflexes normal. Moving all extremities. No focal motor deficits. Cranial nerves II-XI intact bilaterally. Facial strength normal. Normal cognition. Speech normal. Gait normal. Strength 5/5 throughout. No pronator drift. No tremor noted. No fasciculations noted. Muscle tone normal throughout. No asterixis noted. No rigidity noted. Course Course Course Narrative: - Patient afebrile, resting comfortably in no distress. Non-toxic appearing. Patient denies any recent trauma/injury to head. Neurological exam shows no deficits. BP WNL. Denies any changes in vision. Patient ambulates without difficulty. Given the history, and physical - most likely diagnosis: Migraine DEL CID. no imaging indicated at this time.. Will treat pain. Will d/c with migraine medicaiton and advised to follow - up with PCP. Patient demonstrated good understanding of signs and symptoms to return to ED for further testing should sx worsen. gradual onset DEL CID. Pt states classic of previous migraine HAs. SAH: unlikely given gradual onset and similar to previous episodes Intracranial bleed: unlikely given neg trauma, neg anticoagulation Meningitis: unlikely given pt afebrile, neg stiff neck, no immune compromise. Exam without signs of meningismus Temporal arteritis: Unlikely given Neg jaw claudication, no temporal tenderness or nodularity on exam. Cerebral venous thrombosis: unlikely given no h/o hypercoaguable state, no chronic head/neck infection. Reevaluation(s) Reevaluation #1: - All labs within normal limits. UA revealed 15 ketones otherwise no evidence of UTI. UHCG negative for . Patient negative for mono and COVID. Patient refused a strep swab report that she was recently tested for strep was negative. Patient reports her pain went from a 10 to about a 5 or 6 reports she is feeling much better. I explained to her that she should continue receiving the fluids until they are completely done and I will send her home with Toradol and Benadryl. She reports she already has Reglan, Fioricet, antibiotics and steroids at home I explained her that she should continue taking her previously prescribed medications as previously prescribed and to return if any new or worsening symptoms. Patient understands agrees with this plan. Time: 11:55 [facility] - Headache Medical Records Attestation: I reviewed the patient's medical records. Lab Data Attestation: I reviewed the patient's lab results. Result diagrams: 03/16/22 10:48 03/16/22 10:48 Labs: Lab Results 03/16/22 03/16/22 03/16/22 Range/Units 09:57 10:12 10:12 WBC (4.8-10.8) X10*3/uL RBC (4.20-5.50) X10*6/uL Hgb (12.0-16.0) g/dl Hct (37.0-47.0) % MCV (80.0-98.0) fL MCH (27.0-33.0) pg MCHC (31.0-35.0) g/dl RDW (11.0-16.0) % Plt Count (160-400) X10*3/uL MPV (9.4-12.3) fL Immature Gran % (Auto) (0.0-0.4) % Neut % (Auto) (45-73) % Lymph % (Auto) (20-40) % Preston % (Auto) (2-11) % Eos % (Auto) (0-4) % Baso % (Auto) (0-2) % Lymph # (Auto) (1.2-4.9) X10*3/uL Preston # (Auto) (0.1-1.2) X10*3/uL Eos # (Auto) (0.0-0.4) X10*3/uL Baso # (Auto) (0.0-0.2) X10*3/uL Abs Immat Gran (auto) (0.00-0.03) X10*3/uL Absolute Neuts (auto) (2.0-8.3) x10*3/uL Absolute Nucleated RBC (0.0-0.012) X10*3/uL Nucleated RBC % (auto) (0.0-0.2) /100WBC ESR (0-20) MM/HR Sodium (135-145) mmol/L Potassium (3.3-5.1) mmol/L Chloride (96-108) mmol/L Carbon Dioxide (22-29) mmol/L Anion Gap (12-20) BUN (9-16) mg/dL Creatinine (0.5-1.4) mg/dL Estim Creat Clear Calc Estimated GFR Random Glucose (60-115) mg/dL Calcium (8.4-10.2) mg/dL Magnesium (1.6-2.6) mg/dL Total Bilirubin (0.0-1.0) mg/dL AST (5-31) U/L ALT (0-31) U/L Alkaline Phosphatase (39-117) U/L C-Reactive Protein (< or = 0.50) mg/dL Total Protein (6.5-8.0) g/dL Albumin (3.5-5.0) g/dL Urine Color Yellow Urine Appearance Clear Urine pH 5.5 (5.0-9.0) Ur Specific [place] 1.015 (1.005-1.025) Urine Protein Negative (Neg-Trace) mg/dL Urine Glucose (UA) Negative (Negative) mg/dL Urine Ketones 15 (Negative) mg/dL Urine Blood Negative (Negative) Urine Nitrite Negative (Negative) Ur Leukocyte Esterase Negative (Negative) Urine Test NEGATIVE (NEGATIVE) COVID-19 (GREG) Negative (Negative) COVID-19 Clin Com See Note Monoscreen (Negative) 03/16/22 03/16/22 03/16/22 Range/Units 10:48 10:48 10:48 WBC 7.7 (4.8-10.8) X10*3/uL RBC 4.84 (4.20-5.50) X10*6/uL Hgb 14.2 (12.0-16.0) g/dl Hct 43.1 (37.0-47.0) % MCV 89.0 (80.0-98.0) fL MCH 29.3 (27.0-33.0) pg MCHC 32.9 (31.0-35.0) g/dl RDW 12.4 (11.0-16.0) % Plt Count 316 (160-400) X10*3/uL MPV 10.8 (9.4-12.3) fL Immature Gran % (Auto) 0.4 (0.0-0.4) % Neut % (Auto) 80.6 H (45-73) % Lymph % (Auto) 16.2 L (20-40) % Preston % (Auto) 2.7 (2-11) % Eos % (Auto) 0.0 (0-4) % Baso % (Auto) 0.1 (0-2) % Lymph # (Auto) 1.3 (1.2-4.9) X10*3/uL Preston # (Auto) 0.2 (0.1-1.2) X10*3/uL Eos # (Auto) 0.0 (0.0-0.4) X10*3/uL Baso # (Auto) 0.0 (0.0-0.2) X10*3/uL Abs Immat Gran (auto) 0.03 (0.00-0.03) X10*3/uL Absolute Neuts (auto) 6.2 (2.0-8.3) x10*3/uL Absolute Nucleated RBC 0.000 (0.0-0.012) X10*3/uL Nucleated RBC % (auto) 0.0 (0.0-0.2) /100WBC ESR (0-20) MM/HR Sodium 141 (135-145) mmol/L Potassium 4.5 (3.3-5.1) mmol/L Chloride 106 (96-108) mmol/L Carbon Dioxide 24 (22-29) mmol/L Anion Gap 16 (12-20) BUN 7 L (9-16) mg/dL Creatinine 0.84 (0.5-1.4) mg/dL Estim Creat Clear Calc 109.1 Estimated GFR > 60 Random Glucose 109 (60-115) mg/dL Calcium 9.9 D (8.4-10.2) mg/dL Magnesium 2.1 (1.6-2.6) mg/dL Total Bilirubin 0.5 (0.0-1.0) mg/dL AST 15 (5-31) U/L ALT 14 (0-31) U/L Alkaline Phosphatase 68 (39-117) U/L C-Reactive Protein 0.28 (< or = 0.50) mg/dL Total Protein 8.4 H (6.5-8.0) g/dL Albumin 4.9 (3.5-5.0) g/dL Urine Color Urine Appearance Urine pH (5.0-9.0) Ur Specific [place] (1.005-1.025) Urine Protein (Neg-Trace) mg/dL Urine Glucose (UA) (Negative) mg/dL Urine Ketones (Negative) mg/dL Urine Blood (Negative) Urine Nitrite (Negative) Ur Leukocyte Esterase (Negative) Urine Test (NEGATIVE) COVID-19 (GREG) (Negative) COVID-19 Clin Com Monoscreen Negative (Negative) 03/16/22 Range/Units 10:48 WBC (4.8-10.8) X10*3/uL RBC (4.20-5.50) X10*6/uL Hgb (12.0-16.0) g/dl Hct (37.0-47.0) % MCV (80.0-98.0) fL MCH (27.0-33.0) pg MCHC (31.0-35.0) g/dl RDW (11.0-16.0) % Plt Count (160-400) X10*3/uL MPV (9.4-12.3) fL Immature Gran % (Auto) (0.0-0.4) % Neut % (Auto) (45-73) % Lymph % (Auto) (20-40) % Preston % (Auto) (2-11) % Eos % (Auto) (0-4) % Baso % (Auto) (0-2) % Lymph # (Auto) (1.2-4.9) X10*3/uL Preston # (Auto) (0.1-1.2) X10*3/uL Eos # (Auto) (0.0-0.4) X10*3/uL Baso # (Auto) (0.0-0.2) X10*3/uL Abs Immat Gran (auto) (0.00-0.03) X10*3/uL Absolute Neuts (auto) (2.0-8.3) x10*3/uL Absolute Nucleated RBC (0.0-0.012) X10*3/uL Nucleated RBC % (auto) (0.0-0.2) /100WBC ESR 7 (0-20) MM/HR Sodium (135-145) mmol/L Potassium (3.3-5.1) mmol/L Chloride (96-108) mmol/L Carbon Dioxide (22-29) mmol/L Anion Gap (12-20) BUN (9-16) mg/dL Creatinine (0.5-1.4) mg/dL Estim Creat Clear Calc Estimated GFR Random Glucose (60-115) mg/dL Calcium (8.4-10.2) mg/dL Magnesium (1.6-2.6) mg/dL Total Bilirubin (0.0-1.0) mg/dL AST (5-31) U/L ALT (0-31) U/L Alkaline Phosphatase (39-117) U/L C-Reactive Protein (< or = 0.50) mg/dL Total Protein (6.5-8.0) g/dL Albumin (3.5-5.0) g/dL Urine Color Urine Appearance Urine pH (5.0-9.0) Ur Specific [place] (1.005-1.025) Urine Protein (Neg-Trace) mg/dL Urine Glucose (UA) (Negative) mg/dL Urine Ketones (Negative) mg/dL Urine Blood (Negative) Urine Nitrite (Negative) Ur Leukocyte Esterase (Negative) Urine Test (NEGATIVE) COVID-19 (GREG) (Negative) COVID-19 Clin Com Monoscreen (Negative) Discharge Plan Discharge Clinical Impression: Headache Patient Disposition: Home, Self-Care Instructions: General Headache (ED) Prescriptions: New ketorolac 10 mg tablet 10 mg PO Q8H Qty: 14 0RF Rx Instructions: First dose given in the ER by IV and patient tolerated well diphenhydramine HCl [Benadryl Allergy] 25 mg tablet 50 mg PO TID PRN (Reason: sleep) Qty: 14 0RF No Action mesalamine 0.375 gram capsule,extended release 24hr 1.5 g PO DAILY Qty: 90 2RF ondansetron 4 mg tablet,disintegrating 4 mg PO Q8H 30 Days Qty: 30 0RF ukqkhztixk-bfqqfvzxaytwu-kfjm [Fioricet] 50-300-40 mg capsule 1 cap PO Q6H PRN (Reason: headache) Qty: 20 0RF hyoscyamine sulfate 0.125 mg tablet 0.25 mg PO QID PRN venlafaxine 75 mg capsule,extended release 24hr 75 mg PO DAILY pantoprazole 40 mg tablet,delayed release (DR/EC) 40 mg PO BID budesonide 3 mg capsule,delayed,extend.release 9 mg PO DAILY 90 Days Qty: 270 0RF azithromycin 500 mg tablet 500 mg PO DAILY 6 Days Qty: 6 0RF Referrals: Dilcia Flanagan PA [Primary Care Provider] - 2 days Interventions: ED Discharge Assessment Last Done: 03/16/22 12:38 Discharge Date/Time: 03/16/22 12:40
[2022-03-16 11:13] LABS: Alanine Aminotransferase 14 U/L (0-31); Albumin Level 4.9 g/dL (3.5-5.0); Alkaline Phosphatase 68 U/L (39-117); Anion Gap 16 (12-20); Aspartate Amino Transferase 15 U/L (5-31); Bilirubin Total 0.5 mg/dL (0.0-1.0); Blood Urea Nitrogen 7 mg/dL (9-16); Calcium 9.9 mg/dL (8.4-10.2); Carbon Dioxide 24 mmol/L (22-29); Chloride 106 mmol/L (96-108); Creatinine Clr Calc Pharmacy 109.1; Estimated Glomerular Filt Rate > 60; Glucose Random 109 mg/dL (60-115); Magnesium 2.1 mg/dL (1.6-2.6); Potassium 4.5 mmol/L (3.3-5.1); Sodium 141 mmol/L (135-145); Total Protein 8.4 g/dL (6.5-8.0)
[2022-03-16] MEDS: 0.9 % Sodium Chloride 1,000 ML 999 ML IVCONT (11:13)
[2022-03-16] MEDS: Ketorolac Tromethamine 30 MG/ML VIAL IVPUSH (11:16)
[2022-03-16] MEDS: diphenhydrAMINE HCL 50 MG/ML VIAL IVPUSH (11:18)
[2022-03-16] MEDS: Metoclopramide HCl 10 MG/2 ML VIAL IVPUSH (11:22)
[2022-03-16 11:24] LABS: Monotest Negative (Negative)
[2022-03-16 12:18] LABS: C Reactive Protein 0.28 mg/dL (< or = 0.50)
[2022-03-16 12:35] LABS: Erythrocyte Sedimentation Rate 7 MM/HR (0-20)
== END 2022-03-16 12:40 | disposition home or self-care (01) ==
PROVIDERS: Physician Assistant Medical; Emergency Provider Emergency Medicine Emergency Medical Services; PCP Physician Assistant
DX: R51.9 Headache, unspecified (principal); Z20.822 Contact with and (suspected) exposure to COVID-19; F12.90 Cannabis use, unspecified, uncomplicated
CPT/HCPCS: 36415; 80053; 81003; 81025; 83735; 85025; 85652; 86140; 86308; 87635; 96361; 96374; 96375; 99284; J1200; J1885; J2765

== ENCOUNTER → 2022-06-17 09:04 | Outpatient (BNVA) | payer OTHER, SELFPAY | PROVIDERS: Visit Provider Internal Medicine Gastroenterology | DX: K31.84 Gastroparesis (principal); R19.7 Diarrhea, unspecified; Z79.899 Other long term (current) drug therapy | CPT/HCPCS: 99212 ==

== ENCOUNTER 2022-07-03 16:40 | Emergency (ER) | payer OTHER, SELFPAY ==
[2022-07-03 16:52] VITALS: BP 128/84; PULSE 105; O2SAT 99
--- NOTE | 2022-07-03 16:57 | ED.ABDPAIN ---
HPI - Abdominal Pain General Chief Complaint: Abdominal Pain Stated Complaint: ABD PAIN Time Seen by Provider: 07/03/22 16:57 Source: patient Mode of arrival: ambulatory Limitations: no limitations History of Present Illness HPI narrative: 32-year-old female presents with 2 days of severe abdominal pain and constipation. She does have a history of Crohn's and gastroparesis, had a decrease in her mesalamine medications. States that her symptoms have worsened since the decrease of the mesalamine. She is followed by Gastroenterology. She does not report fevers or chills, chest pain or pressure, palpitations, shortness of breath or weakness. MD elicited complaint: abdominal pain Pertinent past history: constipation Onset (ago): day(s) (2) Pain Consistency: constant Location: diffuse Severity: severe Pain scale (0-10): 10 Quality: cramping and fullness Exacerbating factors: movement Relieving factors: nothing Associated symptoms: constipation Related Data Home Medications Medication Instructions Recorded Confirmed hyoscyamine sulfate 0.125 mg tablet 0.25 mg PO QID PRN 12/10/20 venlafaxine 75 mg capsule,extended 75 mg PO DAILY 09/17/21 release 24 hr ondansetron 8 mg disintegrating 8 mg PO Q8H PRN nausea/vomiting 06/17/22 tablet pantoprazole 40 mg tablet,delayed 40 mg PO BID PRN 06/17/22 release Previous Rx's Medication Instructions Recorded mesalamine 0.375 gram 1.5 g PO DAILY #90 caps 12/16/21 capsule,extended release 24 hr azithromycin 500 mg tablet 500 mg PO DAILY 6 days #6 tabs 03/04/22 roppknzmsj-qxwjvlwafhhzj-dwoveawd 1 cap PO Q6H PRN headache #20 caps 03/13/22 50 mg-300 mg-40 mg capsule (Fioricet) diphenhydramine HCl 25 mg tablet 50 mg PO TID PRN sleep #14 tabs 03/16/22 (Benadryl Allergy) ketorolac 10 mg tablet 10 mg PO Q8H pain #14 tabs 03/16/22 budesonide 3 mg 9 mg PO DAILY #270 caps 05/25/22 capsule,delayed,extended release ciprofloxacin HCl 500 mg tablet 500 mg PO Q12H 7 days #14 tabs 07/03/22 metronidazole 500 mg tablet 500 mg PO Q8H 7 days #21 tabs 07/03/22 Allergies Allergy/AdvReac Type Severity Reaction Status Date / Time No Known Allergies Allergy Verified 06/17/22 09:11 Review of Systems Review of Systems Constitutional: No Fever, No Chills ENT/Mouth: No Ear Pain, No Hoarseness, No sore throat Eyes: No Eye Pain, No Swelling, No Redness, No Foreign Body Cardiovascular: No Chest Pain, No SOB Respiratory: No Cough, No Dyspnea Gastrointestinal: No Nausea, No Vomiting, No Diarrhea, positive abdominal Pain, positive constipation Genitourinary: No Dysuria, No Hematuria Musculoskeletal: No joint pain, No Myalgias, No Joint Swelling Skin: No Skin lacerations, No rash Neuro: No Weakness, No Numbness, No Paresthesias, No Loss of Consciousness, No Dizziness, No Headache Yes all other systems are reviewed and are negative [facility] Past Medical History Attestation statement: The following information was validated with the patient. Source: old records reviewed Medical History Cholecystectomy planned Gastroparesis IBS (irritable bowel syndrome) Surgical History H/O oral surgery History of esophagogastroduodenoscopy (EGD) Hx laparoscopic cholecystectomy Hx of colonoscopy Hx of tonsillectomy Family History Family History Mother Heart disease Social History Social History Household Members: None Alcohol intake: never Patient Tobacco Use Status: Never used Tobacco Smoked in Last 30 Days: No Use of substances other than those prescribed or required for medical reasons: Yes Substance Use Type: Marijuana Substance Use Frequency: Daily Advance Directives: No Advance Directives Information Provided: Yes Current occupational status: employed 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 Oriented X3. Moderate distress. Eyes: Pupils equal, round and reactive to light. ENT: Pharynx normal. Neck: Normal inspection. Neck supple. CVS: Normal heart rate and rhythm. Pulses normal. Respiratory: No respiratory distress. Breath sounds normal. Abdomen: Soft and diffusely tender. Skin: Skin warm and dry. Normal skin color. Normal skin turgor. Extremities: Date well-balanced well coordinated. Neuro: No motor deficit. No sensory deficit. Cranial nerves 2-12 intact. Course Course Course Narrative: 32-year-old female presents with 10/10 abdominal pain that started 2 days ago. States that she has not had a BM in several days. Does have a history of colitis and Crohn's, and had a change in her mesalamine medications, which she feels exacerbated her symptoms. She has been vomiting, but does not report fevers or chills. Her abdomen is diffusely tender, nondistended. Will order CT scan of abdomen and pelvis. Lab values are pending. White count is 16, CT scan of abdomen pelvis is negative for acute findings, does show constipation and some stercoral colitis. Patient does have some indication of UTI without nitrates, I feel that this is most likely due to bladder outlet obstruction from constipation. Elevated white count of 16, I feel that most of this is reactive, as there is no indication of significant infection. Lactic acid is 1.8, patient is not septic. I did give ceftriaxone and a L of fluids. Will order soapsuds enema for constipation per patient request. Patient respectfully declined morphine. Large bowel movement produce. Plan of care is for patient to follow-up with gastroenterology as an outpatient. Will give ciprofloxacin and Flagyl for colitis, Cipro will cover for UTI. Patient does understand that if symptoms worsen that she should return for evaluation. Patient verbalized understanding of and agrees to plan of care discharge home. Verbalized understanding of signs and symptoms indicating need for emergent intervention. Medical Decision Making Differential Diagnosis Differential Diagnoses: The differential diagnosis associated with the presentation includes Bowel perforation, colitis, obstipation, acute abdomen, obstruction Admission/Observation Consideration of admission/observation: Escalation of care including admission/observation considered If patient has an acute abdomen will consider admission Lab Data MDM Lab Attestation statement: I reviewed the patient's lab results. Result Diagrams: 07/03/22 17:35 07/03/22 17:35 Labs: Lab Results 1207/03/22 07/03/22 Range/Units 17:27 17:35 17:35 WBC 16.7 H (4.8-10.8) X10*3/uL RBC 4.88 (4.20-5.50) X10*6/uL Hgb 14.4 (12.0-16.0) g/dl Hct 42.5 (37.0-47.0) % MCV 87.1 (80.0-98.0) fL MCH 29.5 (27.0-33.0) pg MCHC 33.9 (31.0-35.0) g/dl RDW 12.6 (11.0-16.0) % Plt Count 321 (160-400) X10*3/uL MPV 11.0 (9.4-12.3) fL Immature Gran % (Auto) 0.4 (0.0-0.4) % Neut % (Auto) 87.7 H (45-73) % Lymph % (Auto) 7.7 L (20-40) % Tyrrell % (Auto) 4.0 (2-11) % Eos % (Auto) 0.0 (0-4) % Baso % (Auto) 0.2 (0-2) % Lymph # (Auto) 1.3 (1.2-4.9) X10*3/uL Tyrrell # (Auto) 0.7 (0.1-1.2) X10*3/uL Eos # (Auto) 0.0 (0.0-0.4) X10*3/uL Baso # (Auto) 0.0 (0.0-0.2) X10*3/uL Abs Immat Gran (auto) 0.07 H (0.00-0.03) X10*3/uL Absolute Neuts (auto) 14.6 H (2.0-8.3) x10*3/uL Absolute Nucleated RBC 0.000 (0.0-0.012) X10*3/uL Nucleated RBC % (auto) 0.0 (0.0-0.2) /100WBC PT (10.0-13.1) SEC INR (0.9-1.1) APTT Cancelled Sodium (135-145) mmol/L Potassium (3.3-5.1) mmol/L Chloride (96-108) mmol/L Carbon Dioxide (22-29) mmol/L Anion Gap (12-20) BUN (9-16) mg/dL Creatinine (0.5-1.4) mg/dL Estim Creat Clear Calc Estimated GFR Random Glucose (60-115) mg/dL Lactic Acid 1.9 (0.5-2.0) mmol/L Calcium (8.4-10.2) mg/dL Total Bilirubin (0.0-1.0) mg/dL Direct Bilirubin (0.0-0.5) mg/dL AST (5-31) U/L ALT (0-31) U/L Alkaline Phosphatase (39-117) U/L Total Protein (6.5-8.0) g/dL Albumin (3.5-5.0) g/dL Lipase (8-78) U/L Beta HCG, Quant mIU/mL Urine Color Urine Appearance Urine pH (5.0-9.0) Ur Specific [place] (1.005-1.025) Urine Protein (Neg-Trace) mg/dL Urine Glucose (UA) (Negative) mg/dL Urine Ketones (Negative) mg/dL Urine Blood (Negative) Urine Nitrite (Negative) Ur Leukocyte Esterase (Negative) Urine RBC (0-2) /HPF Urine WBC (0-5) /HPF Ur Squamous Epith Cells (0-2) /HPF Urine Bacteria (None Seen) Hyaline Casts (0-2) /LPF Influenza Type A (PCR) (Negative) Influenza Type B (PCR) (Negative) RSV RNA Qual (PCR) (Negative) SARS-CoV-2 RNA (RT-PCR) (Negative) 07/03/22 07/03/22 07/03/22 Range/Units 17:35 17:35 17:35 WBC (4.8-10.8) X10*3/uL RBC (4.20-5.50) X10*6/uL Hgb (12.0-16.0) g/dl Hct (37.0-47.0) % MCV (80.0-98.0) fL MCH (27.0-33.0) pg MCHC (31.0-35.0) g/dl RDW (11.0-16.0) % Plt Count (160-400) X10*3/uL MPV (9.4-12.3) fL Immature Gran % (Auto) (0.0-0.4) % Neut % (Auto) (45-73) % Lymph % (Auto) (20-40) % Tyrrell % (Auto) (2-11) % Eos % (Auto) (0-4) % Baso % (Auto) (0-2) % Lymph # (Auto) (1.2-4.9) X10*3/uL Tyrrell # (Auto) (0.1-1.2) X10*3/uL Eos # (Auto) (0.0-0.4) X10*3/uL Baso # (Auto) (0.0-0.2) X10*3/uL Abs Immat Gran (auto) (0.00-0.03) X10*3/uL Absolute Neuts (auto) (2.0-8.3) x10*3/uL Absolute Nucleated RBC (0.0-0.012) X10*3/uL Nucleated RBC % (auto) (0.0-0.2) /100WBC PT 11.8 (10.0-13.1) SEC INR 1.0 (0.9-1.1) APTT 30.1 Sodium 139 (135-145) mmol/L Potassium 4.1 (3.3-5.1) mmol/L Chloride 108 (96-108) mmol/L Carbon Dioxide 20 L (22-29) mmol/L Anion Gap 15 (12-20) BUN 13 (9-16) mg/dL Creatinine 1.07 (0.5-1.4) mg/dL Estim Creat Clear Calc 85.1 Estimated GFR > 60 Random Glucose 118 H (60-115) mg/dL Lactic Acid (0.5-2.0) mmol/L Calcium 10.3 H (8.4-10.2) mg/dL Total Bilirubin 0.5 (0.0-1.0) mg/dL Direct Bilirubin 0.2 (0.0-0.5) mg/dL AST 18 (5-31) U/L ALT 18 (0-31) U/L Alkaline Phosphatase 72 (39-117) U/L Total Protein 8.5 H (6.5-8.0) g/dL Albumin 5.2 H (3.5-5.0) g/dL Lipase 18 (8-78) U/L Beta HCG, Quant < 2 mIU/mL Urine Color Urine Appearance Urine pH (5.0-9.0) Ur Specific [place] (1.005-1.025) Urine Protein (Neg-Trace) mg/dL Urine Glucose (UA) (Negative) mg/dL Urine Ketones (Negative) mg/dL Urine Blood (Negative) Urine Nitrite (Negative) Ur Leukocyte Esterase (Negative) Urine RBC (0-2) /HPF Urine WBC (0-5) /HPF Ur Squamous Epith Cells (0-2) /HPF Urine Bacteria (None Seen) Hyaline Casts (0-2) /LPF Influenza Type A (PCR) NEGATIVE (Negative) Influenza Type B (PCR) NEGATIVE (Negative) RSV RNA Qual (PCR) NEGATIVE (Negative) SARS-CoV-2 RNA (RT-PCR) NEGATIVE (Negative) 07/03/22 Range/Units 17:35 WBC (4.8-10.8) X10*3/uL RBC (4.20-5.50) X10*6/uL Hgb (12.0-16.0) g/dl Hct (37.0-47.0) % MCV (80.0-98.0) fL MCH (27.0-33.0) pg MCHC (31.0-35.0) g/dl RDW (11.0-16.0) % Plt Count (160-400) X10*3/uL MPV (9.4-12.3) fL Immature Gran % (Auto) (0.0-0.4) % Neut % (Auto) (45-73) % Lymph % (Auto) (20-40) % Tyrrell % (Auto) (2-11) % Eos % (Auto) (0-4) % Baso % (Auto) (0-2) % Lymph # (Auto) (1.2-4.9) X10*3/uL Tyrrell # (Auto) (0.1-1.2) X10*3/uL Eos # (Auto) (0.0-0.4) X10*3/uL Baso # (Auto) (0.0-0.2) X10*3/uL Abs Immat Gran (auto) (0.00-0.03) X10*3/uL Absolute Neuts (auto) (2.0-8.3) x10*3/uL Absolute Nucleated RBC (0.0-0.012) X10*3/uL Nucleated RBC % (auto) (0.0-0.2) /100WBC PT (10.0-13.1) SEC INR (0.9-1.1) APTT Sodium (135-145) mmol/L Potassium (3.3-5.1) mmol/L Chloride (96-108) mmol/L Carbon Dioxide (22-29) mmol/L Anion Gap (12-20) BUN (9-16) mg/dL Creatinine (0.5-1.4) mg/dL Estim Creat Clear Calc Estimated GFR Random Glucose (60-115) mg/dL Lactic Acid (0.5-2.0) mmol/L Calcium (8.4-10.2) mg/dL Total Bilirubin (0.0-1.0) mg/dL Direct Bilirubin (0.0-0.5) mg/dL AST (5-31) U/L ALT (0-31) U/L Alkaline Phosphatase (39-117) U/L Total Protein (6.5-8.0) g/dL Albumin (3.5-5.0) g/dL Lipase (8-78) U/L Beta HCG, Quant mIU/mL Urine Color Yellow Urine Appearance Clear Urine pH 5.0 (5.0-9.0) Ur Specific [place] 1.025 (1.005-1.025) Urine Protein Negative (Neg-Trace) mg/dL Urine Glucose (UA) Negative (Negative) mg/dL Urine Ketones 80 (Negative) mg/dL Urine Blood Trace H (Negative) Urine Nitrite Negative (Negative) Ur Leukocyte Esterase Trace H (Negative) Urine RBC 0-2 (0-2) /HPF Urine WBC 0-5 (0-5) /HPF Ur Squamous Epith Cells 6-10 (0-2) /HPF Urine Bacteria None Seen (None Seen) Hyaline Casts 0-2 (0-2) /LPF Influenza Type A (PCR) (Negative) Influenza Type B (PCR) (Negative) RSV RNA Qual (PCR) (Negative) SARS-CoV-2 RNA (RT-PCR) (Negative) Independent Interpretation I performed an independent interpretation of an: CT Scan Radiology Impression Discussion of test interpretation with radiology: I have reviewed the radiologist's reading. Radiologist Impression: FINDINGS: LUNG BASES: The visualized lung bases are unremarkable.? LIVER, GALLBLADDER, AND BILIARY TREE: The liver is normal in size, shape, and attenuation. No focal hepatic lesion or biliary ductal dilatation is present. Gallbladder is surgically absent.? PANCREAS: Unremarkable.? SPLEEN: Unremarkable.? ADRENAL GLANDS: Unremarkable.? KIDNEYS AND URETERS: The kidneys are normal in size, shape, and attenuation. No hydronephrosis, hydroureter, or calculi seen. No perinephric stranding. ? BLADDER: Significantly underdistended and therefore not optimally evaluated however there is no evidence of radiopaque calculi.? GASTROINTESTINAL TRACT: The stomach is moderately distended with ingested material. No definite gastric wall thickening or mass are seen. No perigastric fat stranding. No abnormal small bowel dilatation is noted. Large stool burden is noted throughout the colon. The cecum is somewhat transversely oriented in the upper pelvis with appendix in the midline and left paramedian location in the pelvis. Appendix is normal in appearance. Finding related to underdistention versus probable mild wall thickening of the rectosigmoid colon without pericolonic fat stranding. Wall of the remainder of the colon does not appear to be thickened and there is no pericolonic fat stranding.? ABDOMINAL WALL: No significant hernia is appreciated.? LYMPH NODES: No abnormal lymph nodes are seen. VASCULAR: The aortoiliac vessels are normal in caliber and well opacified. Celiac axis, SMA and BAR are normal in caliber and well opacified. PELVIC VISCERA: Unremarkable CT appearance of the uterus and ovaries. No adnexal mass. PERITONEAL CAVITY: No evidence of free intraperitoneal air or fluid. No inflammatory changes are noted in the omentum and mesentery.? OSSEOUS STRUCTURES: Unremarkable.? CT/CT abdomen pelvis w IV con IMPRESSION: Large stool burden throughout the colon without evidence of abnormal bowel dilatation or bowel obstruction. Mild apparent thickening of the wall of the rectosigmoid colon could be related to underdistention or may represent mild wall thickening suggesting stercoral colitis. Recommend clinical correlation. No evidence of intestinal pneumatosis. ? Fleischner guidelines were followed. External Record Review External record reviewed: Inpatient record and Outpatient record Prescription Management I considered prescription management with: Antibiotic Medications Administered Discontinued Medications Generic Name Dose Route Start Last Admin Trade Name Renate PRN Reason Stop Dose Admin Sodium Chloride 1,000 mls @ 999 mls/hr 07/03/22 17:00 07/03/22 20:55 Ns IVCONT 07/03/22 18:00 Infused .Q1H1M JUANITA Infusion Ceftriaxone Sodium 1 gm/ 50 mls @ 100 mls/hr 07/03/22 18:53 07/03/22 20:55 Sodium Chloride IV 07/03/22 19:22 Infused ONCE ONE Infusion Iohexol 100 ml 07/03/22 17:50 07/03/22 17:52 Iohexol 350 Mg/Ml 100 Ml Infus..Btl IV 07/03/22 17:51 85 ml ONCE ONE Administration Morphine Sulfate 4 mg 07/03/22 17:00 07/03/22 17:39 Morphine Sulfate 4 Mg/Ml Cartridge IVPUSH 07/03/22 17:01 Not Given ONCE ONE Protocol Ondansetron HCl 4 mg 07/03/22 17:00 07/03/22 17:39 Ondansetron Hcl 4 Mg/2 Ml Vial IVPUSH 07/03/22 17:01 4 mg ONCE ONE Administration Discharge Plan Discharge Clinical Impression: Constipation, Colitis, UTI (urinary tract infection) Patient Disposition: Home, Self-Care Instructions: Constipation (ED), Urinary Tract Infection in Women (ED), Colitis (ED) Additional Instructions: You were evaluated for severe abdominal pain. CT scan indicates constipation and rectosigmoid colitis secondary to constipation. Urinalysis is positive for UTI, most likely due to obstruction because of constipation. Please take Flagyl 500 mg every 8 hours for the next 7 days take ciprofloxacin 500 mg every 12 hours for the next 7 days. You may consider following up with Gastroenterology for constipation and history of Crohn's. Have referred you to Dr. Patel. Please call and request an appointment for evaluation Thank you for choosing this emergency department for evaluation. Please follow-up with primary care physician as needed. Return to the emergency department for any new, concerning, or worsening symptoms. Prescriptions: New ciprofloxacin HCl 500 mg tablet 500 mg PO Q12H 7 Days Qty: 14 0RF metronidazole 500 mg tablet 500 mg PO Q8H 7 Days Qty: 21 0RF No Action mesalamine 0.375 gram capsule,extended release 24hr 1.5 g PO DAILY Qty: 90 2RF budesonide 3 mg capsule,delayed,extend.release 9 mg PO DAILY Qty: 270 0RF [id number] [Fioricet] 50-300-40 mg capsule 1 cap PO Q6H PRN (Reason: headache) Qty: 20 0RF ketorolac 10 mg tablet 10 mg PO Q8H Qty: 14 0RF Rx Instructions: First dose given in the ER by IV and patient tolerated well diphenhydramine HCl [Benadryl Allergy] 25 mg tablet 50 mg PO TID PRN (Reason: sleep) Qty: 14 0RF hyoscyamine sulfate 0.125 mg tablet 0.25 mg PO QID PRN ondansetron 8 mg tablet,disintegrating 8 mg PO Q8H PRN (Reason: nausea/vomiting) venlafaxine 75 mg capsule,extended release 24hr 75 mg PO DAILY azithromycin 500 mg tablet 500 mg PO DAILY 6 Days Qty: 6 0RF pantoprazole 40 mg tablet,delayed release (DR/EC) 40 mg PO BID PRN Referrals: Dulce Patel MD [Physician] - 2 weeks (Crohn's, colitis) Interventions: ED Discharge Assessment Last Done: 07/03/22 20:54 Discharge Date/Time: 07/03/22 20:56
[2022-07-03 16:59] VITALS: BP 129/85; PULSE 75; RESP 16; TEMP 36.9; O2SAT 99; BMI 28.6
[2022-07-03 17:46] LABS: MANUAL DIFF FLAG NO
[2022-07-03 17:49] LABS: Basophils Percent Auto 0.2 % (0-2); Hematocrit 42.5 % (37.0-47.0); Hemoglobin 14.4 g/dl (12.0-16.0); Imm Gran Abs Auto 0.07 X10*3/uL (0.00-0.03); Imm Gran Pct Auto 0.4 % (0.0-0.4); Lymphocytes Absolute Auto 1.3 X10*3/uL (1.2-4.9); Lymphocytes Percent Auto 7.7 % (20-40); Mean Corpuscular HGB Conc 33.9 g/dl (31.0-35.0); Mean Corpuscular Hemoglobin 29.5 pg (27.0-33.0); Mean Corpuscular Volume 87.1 fL (80.0-98.0); Monocytes Absolute Auto 0.7 X10*3/uL (0.1-1.2); Neutrophils Absolute Auto 14.6 x10*3/uL (2.0-8.3); Neutrophils Percent Auto 87.7 % (45-73); Platelet Count 321 X10*3/uL (160-400); Red Blood Count 4.88 X10*6/uL (4.20-5.50); Red Cell Distribution Width 12.6 % (11.0-16.0); White Blood Count 16.7 X10*3/uL (4.8-10.8)
[2022-07-03 17:51] LABS: Appearance Urine Clear; Color Urine Yellow; Glucose Urine UA Negative (Negative); Leukocyte Esterase Urine Trace (Negative); Nitrite Urine Negative (Negative); Specific Gravity - Urine 1.025 (1.005-1.025); UMIC TRIGGER UACC YES; Urine Blood Trace (Negative); Urine Ketones 80 mg/dL (Negative); Urine Protein Negative (Neg-Trace)
[2022-07-03 18:01] LABS: Bacteria Urine None Seen (None Seen); Hyaline Casts Urine 0-2 /LPF (0-2); RBC Urine 0-2 /HPF (0-2); WBC Urine 0-5 /HPF (0-5)
[2022-07-03 18:07] LABS: Lactic Acid 1.9 mmol/L (0.5-2.0)
[2022-07-03 18:18] LABS: Alanine Aminotransferase 18 U/L (0-31); Albumin Level 5.2 g/dL (3.5-5.0); Alkaline Phosphatase 72 U/L (39-117); Anion Gap 15 (12-20); Aspartate Amino Transferase 18 U/L (5-31); Bilirubin Direct 0.2 mg/dL (0.0-0.5); Bilirubin Total 0.5 mg/dL (0.0-1.0); Blood Urea Nitrogen 13 mg/dL (9-16); Calcium 10.3 mg/dL (8.4-10.2); Carbon Dioxide 20 mmol/L (22-29); Chloride 108 mmol/L (96-108); Creatinine Clr Calc Pharmacy 85.1; Estimated Glomerular Filt Rate > 60; Glucose Random 118 mg/dL (60-115); HCG Quantitative < 2 mIU/mL; Lipase 18 U/L (8-78); Potassium 4.1 mmol/L (3.3-5.1); Sodium 139 mmol/L (135-145); Total Protein 8.5 g/dL (6.5-8.0)
[2022-07-03 18:20] LABS: Prothrombin Time 11.8 SEC (10.0-13.1)
[2022-07-03 18:22] LABS: Partial Thromboplastin Time 30.1 SEC (26.0-36.4)
[2022-07-03 18:30] LABS: Influenza A PCR NEGATIVE (Negative); Influenza B PCR NEGATIVE (Negative); Resp Syncy Virus RNA Qual PCR NEGATIVE (Negative); SARS COV2 PCR INHOUSE NEGATIVE (Negative)
[2022-07-03 19:19] VITALS: BP 121/73; PULSE 82; RESP 20; TEMP 36.8; O2SAT 99
== END 2022-07-03 20:57 | disposition home or self-care (01) ==
PROVIDERS: Nurse Practitioner Family; Emergency Provider Internal Medicine; PCP Nurse Practitioner Family
DX: K52.9 Noninfective gastroenteritis and colitis, unspecified (principal); N39.0 Urinary tract infection, site not specified; R10.9 Unspecified abdominal pain; K59.00 Constipation, unspecified; Z20.822 Contact with and (suspected) exposure to COVID-19; Z79.899 Other long term (current) drug therapy
CPT/HCPCS: 0241U; 36415; 74177; 80048; 80076; 81001; 83605; 83690; 84702; 85025; 85610; 85730; 87040; 96361; 96374; 96375; 99284; J0696; J2405; Q9967

== ENCOUNTER → 2022-07-08 09:03 | Outpatient (BNVA) | payer OTHER, SELFPAY | PROVIDERS: PCP Nurse Practitioner Family; Visit Provider Internal Medicine Gastroenterology | DX: K31.84 Gastroparesis (principal); K59.00 Constipation, unspecified; R19.7 Diarrhea, unspecified; R11.2 Nausea with vomiting, unspecified; R10.9 Unspecified abdominal pain | CPT/HCPCS: 99212 ==

== ENCOUNTER 2022-07-08 09:38 | Observation (INO) | payer OTHER, SELFPAY ==
[2022-07-08] VITALS (7 sets, daily range): BP systolic 106–153; BP diastolic 72–94; PULSE 68–97; RESP 16–117; TEMP 36.3–36.8; O2SAT 97–99; BMI 28.1; BMI 29.8
--- NOTE | ~2022-07-08 | CT_ITS ---
EXAMINATION: CT ABDOMEN AND PELVIS WITH CONTRAST CLINICAL INFORMATION: Worsening left-sided abdominal pain and vomiting COMPARISON: CT abdomen and pelvis 07/03/2022 TECHNIQUE: Multidetector volumetric images were obtained from the superior aspect of the liver through the pubic symphysis following administration 85 mL of Omnipaque 350 intravenous contrast. Sagittal and coronal reformatted images were obtained on the technologist's workstation. Oral contrast: Yes This CT examination was performed using dose optimization techniques as appropriate, variously including the following: *Automated exposure control *Adjustment of mA and/or kV according to patient size (this includes techniques or standardized protocols for targeted exams where dose is matched to indication/reason for exam; i.e. extremities or head) *Use of iterative reconstruction technique DLP: 652 mGy-cm FINDINGS: LUNG BASES: The visualized lung bases are unremarkable. LIVER, GALLBLADDER, AND BILIARY TREE: Small area of focal fatty infiltration the medial segment left liver lobe adjacent to falciform, unchanged. No other liver lesion. Normal hepatic attenuation. No biliary ductal dilation. Status post cholecystectomy. PANCREAS: Unremarkable. SPLEEN: Unremarkable. ADRENAL GLANDS: Unremarkable. KIDNEYS AND URETERS: The kidneys are normal in size, shape, and attenuation. No hydronephrosis, hydroureter, or calculi seen. No perinephric stranding. BLADDER: Unremarkable. GASTROINTESTINAL TRACT: No dilated bowel loops. No bowel wall thickening. Moderate amount of formed stool within the nondilated colon. Normal appendix. No free air or ascites. ABDOMINAL WALL: No significant hernia is appreciated. LYMPH NODES: No lymphadenopathy. VASCULAR: Unremarkable. PELVIC VISCERA: Unremarkable. OSSEOUS STRUCTURES: Unremarkable. CT/CT abdomen pelvis w IV con IMPRESSION: No acute intra-abdominal process identified. Moderate colonic stool burden.
--- NOTE | 2022-07-08 10:42 | ED.ABDPAIN ---
HPI - Abdominal Pain General Chief Complaint: Abdominal Pain Stated Complaint: nausea vomiting Time Seen by Provider: 07/08/22 10:40 Source: patient Mode of arrival: ambulatory Limitations: no limitations History of Present Illness HPI narrative: 32-year-old female with history of Chron's colitis on budesonide, gastroparesis of unknown etiology presents the ER for evaluation of ongoing left upper quadrant abdominal pain associated with nausea and vomiting that started on 07/03. She was seen here on that day where she had a CT scan showing large stool burden throughout the colon without evidence of abnormal bowel dilatation or bowel obstruction. There was mild thickening of the wall of the rectosigmoid colon which could be related to underdistention or may represent stercoral colitis. She was discharged with antibiotics for colitis and UTI - cipro and flagyl. Patient was seen in the GI clinic today. She was pale, clammy, and c/o ongoing left sided abdominal pain. Vomited 3-4 times this morning. She was able to tolerate some PO yesterday but vomited 2x the day before. She has been having BM's every other day since . No fevers. She states she has missed a few doses of the abx due to vomitnig. MD elicited complaint: abdominal pain Pertinent past history: constipation and other (Crohns) Onset (ago): week(s) (1) Pain Consistency: constant Location: LUQ Severity: moderate Pain scale (0-10): 7 Quality: stabbing Radiation: none Migration to: no migration Relieving factors: nothing Context: history of similar episodes Associated symptoms: nausea and vomiting Related Data Home Medications Medication Instructions Recorded Confirmed venlafaxine 75 mg capsule,extended 75 mg PO DAILY 09/17/21 07/08/22 release 24 hr ondansetron 8 mg disintegrating 8 mg PO Q8H PRN nausea/vomiting 06/17/22 07/08/22 tablet pantoprazole 40 mg tablet,delayed 40 mg PO BID PRN Acid Reflux 06/17/22 07/08/22 release metoclopramide HCl 5 mg tablet 1 tab PO TID PRN Nausea And 07/08/22 07/08/22 Vomiting Previous Rx's Medication Instructions Recorded budesonide 3 mg 9 mg PO DAILY #270 caps 05/25/22 capsule,delayed,extended release ciprofloxacin HCl 500 mg tablet 500 mg PO Q12H 7 days #14 tabs 12/25/22 metronidazole 500 mg tablet 500 mg PO Q8H 7 days #21 tabs 07/03/22 Allergies Allergy/AdvReac Type Severity Reaction Status Date / Time No Known Allergies Allergy Verified 06/17/22 09:11 Review of Systems Review of Systems Constitutional: No Fever, No Chills ENT/Mouth: No sore throat, No Rhinorrhea, No Swallowing Difficulty Cardiovascular: No Chest Pain, No SOB, No Orthopnea, No Edema Respiratory: No Cough, No Sputum, No Wheezing, No dyspnea Gastrointestinal: + Nausea, No Vomiting, + Diarrhea, + abdominal Pain, No Hematochezia, No Melena Genitourinary: No Dysuria, No Urinary Frequency, No Hematuria Musculoskeletal: No joint pain, No Myalgias Skin: No Skin Lesions, No rash Neuro: +Weakness, No Numbness, No Dizziness, No Headache Psych: No Anxiety/Panic, No Depression Heme/Lymph: No Bruising, No Lymphadenopathy PMFSH Past Medical History Medical History Cholecystectomy planned Gastroparesis IBS (irritable bowel syndrome) Surgical History H/O oral surgery History of esophagogastroduodenoscopy (EGD) Hx laparoscopic cholecystectomy Hx of colonoscopy Hx of tonsillectomy Family History Family History Mother Heart disease Social History Social History Household Members: None Alcohol intake: never Patient Tobacco Use Status: Never used Tobacco Substance Use Type: Marijuana Advance Directives: No Advance Directives Information Provided: Yes Current occupational status: employed 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 Oriented X3. No acute distress. Eyes: Pupils equal, round and reactive to light. ENT: Pharynx normal. Neck: Normal inspection. Neck supple. CVS: Normal heart rate and rhythm. Pulses normal. Respiratory: No respiratory distress. Breath sounds normal. Abdomen: Soft with LUQ tenderness, +BS x4. Skin: Skin warm and dry. Normal skin color. Normal skin turgor. No rashes. Extremities: No lower extremity edema. Neuro: Oriented X 3. No motor deficit. No sensory deficit. Course Course Course Narrative: 32 yo female with history of gastroparesis, Crohn's disease who presents to the ER for evaluation of ongoing LUQ abdominal pain for the last week associated with nausea and vomiting. Pale and uncomfortable on arrival. Abd soft but tender in the LUQ area. Spoke with Dr. Myers who is recommending repeating CT scan today with both PO and IV contrast. IV hydration, pain control. Likely admit for observation. Patient updated on plan of care. Declining morphine now, states it makes nausea worse. Will give dose of Toradol and reassess. Suresh ordered to try to drink oral contrast. Reevaluation(s) Reevaluation #1: Leukocytosis from 07/03 has resolved. Electrolytes unremarkable. Mild elevation of CRP 0.54. CT scan pending. Reglan given for gastric motility, nauseous while drinking the oral contrast. Reevaluation #2: CT scan unremarkable. Jensen burgess hospitalist for admission for pain control, bowel regimen, IV fluids per Dr. Myers recommendations Medical Decision Making Lab Data Result Diagrams: 07/08/22 11:31 07/08/22 11:31 Labs: Lab Results 07/08/22 07/08/22 07/08/22 Range/Units 11:31 11:31 11:31 WBC 7.6 (4.8-10.8) X10*3/uL RBC 4.66 (4.20-5.50) X10*6/uL Hgb 13.9 (12.0-16.0) g/dl Hct 41.1 (37.0-47.0) % MCV 88.2 (80.0-98.0) fL MCH 29.8 (27.0-33.0) pg MCHC 33.8 (31.0-35.0) g/dl RDW 12.6 (11.0-16.0) % Plt Count 271 (160-400) X10*3/uL MPV 11.0 (9.4-12.3) fL Immature Gran % (Auto) 0.3 (0.0-0.4) % Neut % (Auto) 72.8 (45-73) % Lymph % (Auto) 19.9 L (20-40) % [place] % (Auto) 6.2 (2-11) % Eos % (Auto) 0.4 (0-4) % Baso % (Auto) 0.4 (0-2) % Lymph # (Auto) 1.5 (1.2-4.9) X10*3/uL [place] # (Auto) 0.5 (0.1-1.2) X10*3/uL Eos # (Auto) 0.0 (0.0-0.4) X10*3/uL Baso # (Auto) 0.0 (0.0-0.2) X10*3/uL Abs Immat Gran (auto) 0.02 (0.00-0.03) X10*3/uL Absolute Neuts (auto) 5.5 (2.0-8.3) x10*3/uL Absolute Nucleated RBC 0.000 (0.0-0.012) X10*3/uL Nucleated RBC % (auto) 0.0 (0.0-0.2) /100WBC ESR 13 (0-20) MM/HR Sodium 141 (135-145) mmol/L Potassium 4.1 (3.3-5.1) mmol/L Chloride 108 (96-108) mmol/L Carbon Dioxide 22 (22-29) mmol/L Anion Gap 15 (12-20) BUN 14 (9-16) mg/dL Creatinine 1.04 (0.5-1.4) mg/dL Estim Creat Clear Calc 86.9 Estimated GFR > 60 Random Glucose 89 (60-115) mg/dL Calcium 9.8 (8.4-10.2) mg/dL Total Bilirubin 0.4 (0.0-1.0) mg/dL Direct Bilirubin < 0.2 (0.0-0.5) mg/dL AST 20 (5-31) U/L ALT 16 (0-31) U/L Alkaline Phosphatase 59 (39-117) U/L C-Reactive Protein 0.54 H (< or = 0.50) mg/dL Total Protein 7.6 (6.5-8.0) g/dL Albumin 4.7 (3.5-5.0) g/dL Lipase 20 (8-78) U/L Urine Color Urine Appearance Urine pH (5.0-9.0) Ur Specific [place] (1.005-1.025) Urine Protein (Neg-Trace) mg/dL Urine Glucose (UA) (Negative) mg/dL Urine Ketones (Negative) mg/dL Urine Blood (Negative) Urine Nitrite (Negative) Ur Leukocyte Esterase (Negative) Urine RBC (0-2) /HPF Urine WBC (0-5) /HPF Ur Squamous Epith Cells (0-2) /HPF Urine Bacteria (None Seen) Hyaline Casts (0-2) /LPF COVID-19 (GREG) (Negative) COVID-19 Clin Com Influenza Type A (CARLOTTA) (Negative) Influenza Type B (CAR[place]OTTA) (Negative) Influenza A & B Note 07/08/22 07/08/22 07/08/22 Range/Units 12:35 12:35 14:14 WBC (4.8-10.8) X10*3/uL RBC (4.20-5.50) X10*6/uL Hgb (12.0-16.0) g/dl Hct (37.0-47.0) % MCV (80.0-98.0) fL MCH (27.0-33.0) pg MCHC (31.0-35.0) g/dl RDW (11.0-16.0) % Plt Count (160-400) X10*3/uL MPV (9.4-12.3) fL Immature Gran % (Auto) (0.0-0.4) % Neut % (Auto) (45-73) % Lymph % (Auto) (20-40) % [place] % (Auto) (2-11) % Eos % (Auto) (0-4) % Baso % (Auto) (0-2) % Lymph # (Auto) (1.2-4.9) X10*3/uL [place] # (Auto) (0.1-1.2) X10*3/uL Eos # (Auto) (0.0-0.4) X10*3/uL Baso # (Auto) (0.0-0.2) X10*3/uL Abs Immat Gran (auto) (0.00-0.03) X10*3/uL Absolute Neuts (auto) (2.0-8.3) x10*3/uL Absolute Nucleated RBC (0.0-0.012) X10*3/uL Nucleated RBC % (auto) (0.0-0.2) /100WBC ESR (0-20) MM/HR Sodium (135-145) mmol/L Potassium (3.3-5.1) mmol/L Chloride (96-108) mmol/L Carbon Dioxide (22-29) mmol/L Anion Gap (12-20) BUN (9-16) mg/dL Creatinine (0.5-1.4) mg/dL Estim Creat Clear Calc Estimated GFR Random Glucose (60-115) mg/dL Calcium (8.4-10.2) mg/dL Total Bilirubin (0.0-1.0) mg/dL Direct Bilirubin (0.0-0.5) mg/dL AST (5-31) U/L ALT (0-31) U/L Alkaline Phosphatase (39-117) U/L C-Reactive Protein (< or = 0.50) mg/dL Total Protein (6.5-8.0) g/dL Albumin (3.5-5.0) g/dL Lipase (8-78) U/L Urine Color Dark Yellow Urine Appearance Cloudy Urine pH 5.0 (5.0-9.0) Ur Specific [place] >= 1.030 H (1.005-1.025) Urine Protein Trace (Neg-Trace) mg/dL Urine Glucose (UA) Negative (Negative) mg/dL Urine Ketones 80 (Negative) mg/dL Urine Blood Moderate (2+) H (Negative) Urine Nitrite Negative (Negative) Ur Leukocyte Esterase Trace H (Negative) Urine RBC 3-5 H (0-2) /HPF Urine WBC 0-5 (0-5) /HPF Ur Squamous Epith Cells 11-20 (0-2) /HPF Urine Bacteria None Seen (None Seen) Hyaline Casts 0-2 (0-2) /LPF COVID-19 (GREG) Negative (Negative) COVID-19 Clin Com See Note Influenza Type A (CAR[place]TA) Negative (Negative) Influenza Type B ([place]TA) Negative (Negative) Influenza A & B Note See Note Medications Administered Discontinued Medications Generic Name Dose Route Start Last Admin Trade Name Renate PRN Reason Stop Dose Admin Diatrizoate Meglum/Diatrizoate Sod 30 ml 07/08/22 15:18 07/08/22 15:19 Diatrizoate Meglumine, Sodium 30 Ml Solution PO 07/08/22 15:19 30 ml ONCE ONE Administration Sodium Chloride 1,000 mls @ 999 mls/hr 07/08/22 10:45 07/08/22 13:28 Ns IVCONT 07/08/22 11:45 Infused .[id number] JUANITA Infusion Iohexol 100 ml 07/08/22 15:11 07/08/22 15:13 Iohexol 350 Mg/Ml 100 Ml Infus..Btl IV 07/08/22 15:12 85 ml ONCE ONE Administration Ketorolac Tromethamine 30 mg 07/08/22 13:10 07/08/22 13:31 Ketorolac Tromethamine 30 Mg/Ml Vial IVPUSH 07/08/22 13:11 30 mg ONCE ONE Administration Metoclopramide HCl 10 mg 07/08/22 13:42 07/08/22 13:49 Metoclopramide Hcl 10 Mg/2 Ml Vial IVPUSH 07/08/22 13:43 10 mg ONCE ONE Administration Morphine Sulfate 4 mg 07/08/22 10:41 07/08/22 10:53 Morphine Sulfate 4 Mg/Ml Cartridge IVPUSH 07/08/22 10:42 Not Given ONCE ONE Protocol Ondansetron HCl 4 mg 07/08/22 10:41 07/08/22 11:32 Ondansetron Hcl 4 Mg/2 Ml Vial IVPUSH 07/08/22 10:42 4 mg ONCE ONE Administration Discharge Plan Discharge Clinical Impression: Abdominal pain, Constipation Patient Disposition: Admitted As Inpatient
[2022-07-08] MEDS: 0.9 % Sodium Chloride 1,000 ML 999 ML IVCONT (11:32)
[2022-07-08] MEDS: ondansetron HCL 4 MG/2 ML VIAL IVPUSH (11:32)
[2022-07-08 11:33] LABS: MANUAL DIFF FLAG NO
[2022-07-08 11:35] LABS: Basophils Percent Auto 0.4 % (0-2); Eosinophils Percent Auto 0.4 % (0-4); Hematocrit 41.1 % (37.0-47.0); Hemoglobin 13.9 g/dl (12.0-16.0); Imm Gran Abs Auto 0.02 X10*3/uL (0.00-0.03); Imm Gran Pct Auto 0.3 % (0.0-0.4); Lymphocytes Absolute Auto 1.5 X10*3/uL (1.2-4.9); Lymphocytes Percent Auto 19.9 % (20-40); Mean Corpuscular HGB Conc 33.8 g/dl (31.0-35.0); Mean Corpuscular Hemoglobin 29.8 pg (27.0-33.0); Mean Corpuscular Volume 88.2 fL (80.0-98.0); Monocytes Absolute Auto 0.5 X10*3/uL (0.1-1.2); Monocytes Percent Auto 6.2 % (2-11); Neutrophils Absolute Auto 5.5 x10*3/uL (2.0-8.3); Neutrophils Percent Auto 72.8 % (45-73); Platelet Count 271 X10*3/uL (160-400); Red Blood Count 4.66 X10*6/uL (4.20-5.50); Red Cell Distribution Width 12.6 % (11.0-16.0); White Blood Count 7.6 X10*3/uL (4.8-10.8)
--- NOTE | 2022-07-08 11:50 | PC.NURSE ---
Patient AOx 4 no distress noted presents to ED from GI clinic with report of ongoing ABD pain denies blood in urine or stool. IV access obtained tolerating IV fluids will CTM
--- NOTE | 2022-07-08 11:52 | PC.NURSE ---
Patient refused Morphine for pain provider aware.
[2022-07-08 12:03] LABS: Alanine Aminotransferase 16 U/L (0-31); Albumin Level 4.7 g/dL (3.5-5.0); Alkaline Phosphatase 59 U/L (39-117); Anion Gap 15 (12-20); Aspartate Amino Transferase 20 U/L (5-31); Bilirubin Direct < 0.2 mg/dL (0.0-0.5); Bilirubin Total 0.4 mg/dL (0.0-1.0); Blood Urea Nitrogen 14 mg/dL (9-16); C Reactive Protein 0.54 mg/dL (< or = 0.50); Calcium 9.8 mg/dL (8.4-10.2); Carbon Dioxide 22 mmol/L (22-29); Chloride 108 mmol/L (96-108); Creatinine Clr Calc Pharmacy 86.9; Estimated Glomerular Filt Rate > 60; Glucose Random 89 mg/dL (60-115); Lipase 20 U/L (8-78); Potassium 4.1 mmol/L (3.3-5.1); Sodium 141 mmol/L (135-145); Total Protein 7.6 g/dL (6.5-8.0)
[2022-07-08 12:18] LABS: Erythrocyte Sedimentation Rate 13 MM/HR (0-20)
[2022-07-08 13:12] LABS: COVID-19 Test Negative (Negative); IDNOW Serial# 16C4AD1C; IDNOW Serial# 55D5AD1C; Influenza A Negative (Negative); Influenza B2 Negative (Negative)
[2022-07-08] MEDS: Ketorolac Tromethamine 30 MG/ML VIAL IVPUSH (13:31)
[2022-07-08] MEDS: Metoclopramide HCl 10 MG/2 ML VIAL IVPUSH (13:49)
[2022-07-08 14:22] LABS: Appearance Urine Cloudy; Color Urine Dark Yellow; Glucose Urine UA Negative (Negative); Leukocyte Esterase Urine Trace (Negative); Nitrite Urine Negative (Negative); Specific Gravity - Urine >= 1.030 (1.005-1.025); UMIC TRIGGER UACC YES; Urine Blood Moderate (2+) (Negative); Urine Ketones 80 mg/dL (Negative); Urine Protein Trace mg/dL (Neg-Trace)
[2022-07-08 14:36] LABS: Bacteria Urine None Seen (None Seen); Hyaline Casts Urine 0-2 /LPF (0-2); WBC Urine 0-5 /HPF (0-5)
--- NOTE | 2022-07-08 15:06 | PHA.MEDREC ---
Pharmacy Consult ? Medication Reconciliation Pharmacy has completed the medication reconciliation. Patient claims they've missed doses of ciprofloxacin and metronidazole due to vomiting. Unknown how many doses are left of Tx.
[2022-07-08] MEDS: iohexoL 350 MG/ML 100 ML INFUS..BTL IV (15:13)
[2022-07-08] MEDS: Diatrizoate Meglumine, Sodium 30 ML SOLUTION PO (15:19)
--- NOTE | 2022-07-08 18:08 | MHC.EDTECH ---
pt was given ham sandwich and teresa ca for dinner .
[2022-07-08] MEDS: polyethylene glycoL 3350 17 GM POWD.PACK PO ×2 (18:12→20:26)
[2022-07-08] MEDS: Lactated Ringers 1,000 ML 999 ML IV (18:13)
--- NOTE | 2022-07-08 19:12 | P.HPHOSP_ITS ---
History of Present Illness Date of Service: 07/08/22 Attending physician on admission: Mayo Quiroz Chief Complaint: abd pain 32 y/o F with history of Chron's colitis on budesonide, gastroparesis of unknown etiology presents the ER for evaluation of ongoing left upper quadrant abdominal pain associated with nausea and vomiting that started on 07/03.? Patient was seen in the GI clinic today. She was nauseated ,vomitin and c/o ongoing left sided abdominal pain. Vomited 3-4 times this morning. She was able to tolerate some PO yesterday but vomited 2x the day before. She has been having BM's every other day since . No fevers. She states she has missed a few doses of the abx due to vomiting She was seen here on that day where she had a CT scan showing large stool burden throughout the colon without evidence of abnormal bowel dilatation or bowel obstruction.? There was mild thickening of the wall of the rectosigmoid colon which could be related to underdistention or may represent stercoral colitis. ? She was discharged with antibiotics for colitis and UTI - cipro and flagyl. She says that she has feels still feels abdominal pain and feels generalized weak, and was went to GI clinic today morning and was sent for further evaluation. In the ED today CT of abdomen is done:?CT/CT abdomen pelvis w IV con IMPRESSION: No acute intra-abdominal process identified. Moderate colonic stool burden. Lab imaging reviewed: CBC fine, BMP also fine. CT of the abdomen seems fine In the ED patient received antiemetics, IV pain medications, laxatives and admission was requested because of persistent abdominal pain-pain management, also because patient could not able to complete her antibiotic course due to persistent nausea vomiting. Denies any new complaint of chest pain or shortness of breath or fever or chills Denies any cough Denies any weakness or numbness. Review of Systems Review of Systems: As above. 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 Meds Allergies Allergy/AdvReac Type Severity Reaction Status Date / Time No Known Allergies Allergy Verified 06/17/22 09:11 Active Medications: Current Medications Erythromycin (Erythromycin Base 250 Mg Tablet) 500 mg PO Q8H JUANITA Lactated Ringer's (Lr) 1,000 mls @ 80 mls/hr IVCONT .[id number] JUANITA Levofloxacin (Levaquin) 500 mg in 100 mls @ 100 mls/hr IV Q24H JUANITA Metronidazole (Flagyl) 500 mg in 100 mls @ 100 mls/hr IV Q12H JUANITA Morphine Sulfate (Morphine Sulfate 2 Mg/Ml Cartridge) 2 mg IVPUSH Q4H PRN; Protocol PRN Reason: Pain, Mild (Pain Scale 1-3) Ondansetron HCl (Ondansetron Hcl 4 Mg/2 Ml Vial) 4 mg IVPUSH Q4H PRN PRN Reason: Nausea and Vomiting Pharmacy Consult (Consult Rx Perform Med Rec) 1 each MISCELLANE ONCE PRN PRN Reason: Consult order Home Medications Medication Instructions Recorded Confirmed Last Taken Type venlafaxine 75 mg capsule,extended 75 mg PO DAILY 09/17/21 07/08/22 07/02/22 History release 24 hr ondansetron 8 mg disintegrating 8 mg PO Q8H PRN nausea/vomiting 06/17/22 07/08/22 07/06/22 History tablet pantoprazole 40 mg tablet,delayed 40 mg PO BID PRN Acid Reflux 06/17/22 07/08/22 07/02/22 History release metoclopramide HCl 5 mg tablet 1 tab PO TID PRN Nausea And 07/08/22 07/08/22 07/02/22 History Vomiting Physical Exam Vital Signs and Narrative: Vital Signs: Last Vital Signs Temp 97.8 F 07/08/22 18:00 Pulse 79 07/08/22 18:00 Resp 16 07/08/22 18:00 BP 115/76 07/08/22 18:00 Pulse Ox 97 07/08/22 18:00 O2 Del Method 07/08/22 18:00 BMI result Body Mass Index 28.1 Appearance: Alert.? Oriented X3.? abdominal pain.? Eyes: Pupils equal, round and reactive to light.? Sclera nonicteric.? ENT: Pharynx normal.? Moist mucous membranes. cvs: rrr, [id number] , no murmur res: clear to auscultation ,no rhonchii or wheezing abd: no rebound or guarding ,left sided abd pain, bs present. ext pulses present , no cyanosis . neuro: axo3 , nonfocal. Results Labs CBC and Chem 7: 07/08/22 11:31 07/08/22 11:31 Labs: Laboratory Results - last 24 hr 07/08/22 07/08/22 07/08/22 11:31 11:31 11:31 MCV 88.2 MCH 29.8 MCHC 33.8 RDW 12.6 Plt Count 271 MPV 11.0 Immature Gran % (Auto) 0.3 Neut % (Auto) 72.8 Lymph % (Auto) 19.9 L [place] % (Auto) 6.2 Eos % (Auto) 0.4 Baso % (Auto) 0.4 Lymph # (Auto) 1.5 [place] # (Auto) 0.5 Eos # (Auto) 0.0 Baso # (Auto) 0.0 Abs Immat Gran (auto) 0.02 Absolute Neuts (auto) 5.5 Absolute Nucleated RBC 0.000 Nucleated RBC % (auto) 0.0 ESR 13 Anion Gap 15 Estim Creat Clear Calc 86.9 Estimated GFR > 60 Random Glucose 89 Calcium 9.8 Total Bilirubin 0.4 Direct Bilirubin < 0.2 AST 20 ALT 16 Alkaline Phosphatase 59 C-Reactive Protein 0.54 H Total Protein 7.6 Albumin 4.7 Lipase 20 Urine Color Urine Appearance Urine pH Ur Specific [place] Urine Protein Urine Glucose (UA) Urine Ketones Urine Blood Urine Nitrite Ur Leukocyte Esterase Urine RBC Urine WBC Ur Squamous Epith Cells Urine Bacteria Hyaline Casts COVID-19 (GREG) COVID-19 Clin Com Influenza Type A (CARLOTTA) Influenza Type B (CARLOTTA) Influenza A & B Note 07/08/22 07/08/22 07/08/22 12:35 12:35 14:14 MCV MCH MCHC RDW Plt Count MPV Immature Gran % (Auto) Neut % (Auto) Lymph % (Auto) [place] % (Auto) Eos % (Auto) Baso % (Auto) Lymph # (Auto) [place] # (Auto) Eos # (Auto) Baso # (Auto) Abs Immat Gran (auto) Absolute Neuts (auto) Absolute Nucleated RBC Nucleated RBC % (auto) ESR Anion Gap Estim Creat Clear Calc Estimated GFR Random Glucose Calcium Total Bilirubin Direct Bilirubin AST ALT Alkaline Phosphatase C-Reactive Protein Total Protein Albumin Lipase Urine Color Dark Yellow Urine Appearance Cloudy Urine pH 5.0 Ur Specific [place] >= 1.030 H Urine Protein Trace Urine Glucose (UA) Negative Urine Ketones 80 Urine Blood Moderate (2+) H Urine Nitrite Negative Ur Leukocyte Esterase Trace H Urine RBC 3-5 H Urine WBC 0-5 Ur Squamous Epith Cells 11-20 Urine Bacteria None Seen Hyaline Casts 0-2 COVID-19 (GREG) Negative COVID-19 Clin Com See Note Influenza Type A ([place]) Negative Influenza Type B (CAR[place]OTTA) Negative Influenza A & B Note See Note Imaging Radiologist's Impressions: Impressions Abdomen/Pelvis CT 07/08/22 15:15 IMPRESSION: No acute intra-abdominal process identified. Moderate colonic stool burden. Assessment and Plan (1) Abdominal pain: Status: Acute (2) Colitis: Status: Acute (3) Constipation: Status: Acute (4) Gastroparesis: Status: Acute Plan 32 yo female with history of gastroparesis, Crohn's disease who presents to the ER for evaluation of ongoing LUQ abdominal pain for the last week associated with nausea and vomiting. Pale and uncomfortable on arrival. Abd soft but tender in the LUQ area. Spoke with Dr. Myers who is recommending repeating CT scan today with both PO and IV contrast. IV hydration, pain control. Likely admit for observation. 1. Abdominal pain/with persistent nausea vomiting ? Constipation Will start clear liquid diet Will switch her antibiotic to IV since can take p.o., added antibiotics, pain control avilez Toradol. Also added gentle hydration. GI evaluation. 2. Gastroparesis: Will continue to monitor, home medical reconciliation depending DVT prophylaxis: Patient is young needs to ambulate. Above management discussed the patient in detail length she understand and in agreement with the above plan, time spent 70 minute. Patient will benefit 2 midnight stays-due to persistent abdominal pain, unable to take p.o. and persistent nausea vomiting. Time Spent With Patient Time: Total time managing care of this patient today ____ minutes. Quality Stroke Does the patient have a stroke diagnosis?: No VTE Prior VTE?: No VTE Risk Level:: Medical - moderate - high VTE Device Contraindication: N/A - Device Ordered VTE Drug Contraindication: N/A - Med Ordered
[2022-07-08] MEDS: Ketorolac Tromethamine 15 MG/ML VIAL IVPUSH (20:26)
[2022-07-08] MEDS: metroNIDAZOLE/NS 500 MG/100 ML PIGGYBACK 100 MG IV (20:26)
[2022-07-08] MEDS: Docusate Sodium 100 MG CAPSULE PO (20:26)
[2022-07-08] MEDS: Lactated Ringers 1,000 ML 80 ML IVCONT (21:05)
[2022-07-08] MEDS: levoFLOXacin/D5W 500 MG/100 ML PIGGYBACK 100 MG IV (21:51)
[2022-07-08] MEDS: Erythromycin Base 250 MG TABLET 500 MG PO (21:51)
[2022-07-09] MEDS: ondansetron HCL 4 MG/2 ML VIAL IVPUSH (01:37)
[2022-07-09] MEDS: Ketorolac Tromethamine 15 MG/ML VIAL IVPUSH ×4 (01:37→19:29)
[2022-07-09 03:12] VITALS: BP 139/95; PULSE 78; RESP 18; TEMP 36.2; O2SAT 99
[2022-07-09] MEDS: Erythromycin Base 250 MG TABLET 500 MG PO (06:01)
[2022-07-09] MEDS: metroNIDAZOLE/NS 500 MG/100 ML PIGGYBACK 100 MG IV (06:12)
[2022-07-09 07:09] VITALS: BP 157/92; PULSE 84; RESP 16; TEMP 36.4; O2SAT 97
[2022-07-09] MEDS: Venlafaxine HCl ER 75 MG CAP.ER.24H PO (08:00)
[2022-07-09] MEDS: Metoclopramide HCl 5 MG TABLET PO (08:00)
--- NOTE | 2022-07-09 08:43 | MHC.CM.PN ---
PT REPORTS SHE LIVES ALONE AND IS SELF EMPLOYED SHE DENIES USE OF DME OR HOME SERVICES PT DOES NOT HAVE A HCP AND REPORTS SHE WILL CONSIDER COMPLETING ONE DURING ADMISSION SHE IS AWARE CM CAN ASSIST PT REPORTS SHE IS COVID VAX AND BOOSTED PCP: JOSH KEYES OBSERVATION NOTICE DELIVERED CURRENT DC PLAN IS HOME PT REPORTS HER CAR IS IN THE LOT, HOWEVER IF SHE IS NOT FEELING SAFE TO DRIVE, HER BROTHER WILL TRANSPORT
[2022-07-09] MEDS: Lactated Ringers 1,000 ML 80 ML IVCONT ×2 (09:46→21:30)
--- NOTE | 2022-07-09 12:37 | HO.PM.IMPN ---
Subjective Subjective Date of Service: 07/09/22 Interval History: follow up abd pain Review of Systems still has abd pain ,has few episodes of diarrhae , no fevers Physical Exam Vital Signs: Vital Signs: Last Vital Signs Temp 97.6 F 07/09/22 07:09 Pulse 84 07/09/22 07:09 Resp 16 07/09/22 07:09 BP 157/92 H 07/09/22 07:09 Pulse Ox 97 07/09/22 07:09 O2 Del Method 07/09/22 07:09 BMI result Body Mass Index 29.8 Appearance: Alert.? Oriented X3.? abdominal pain.? cvs: rrr, [id number] , no murmur res: clear to auscultation ,no rhonchii or wheezing abd: no rebound or guarding ,left sided abd pain, bs present. ext pulses present , no cyanosis . neuro: axo3 , nonfocal. Objective Data Active Medications Docusate Sodium (Docusate Sodium 100 Mg Capsule) 100 mg PO BEDTIME [facility] Last Admin: 07/08/22 20:26 Dose: 100 mg Documented By: DEZ Erythromycin (Erythromycin Base 250 Mg Tablet) 500 mg PO Q8H [facility] Last Admin: 07/09/22 06:01 Dose: 500 mg Documented By: NIRU Lactated Ringer's (Lr) 1,000 mls @ 80 mls/hr IVCONT .[id number] [facility] Last Admin: 07/09/22 09:46 Dose: 80 mls/hr Documented By: RODRIGUEZ Levofloxacin (Levaquin) 500 mg in 100 mls @ 100 mls/hr IV Q24H [facility] Last Admin: 07/08/22 21:43 Dose: Not Given Documented By: DEDE Non-Admin Reason: Duplicate Order Metronidazole (Flagyl) 500 mg in 100 mls @ 100 mls/hr IV Q12H [facility] Last Infusion: 07/09/22 07:50 Dose: 0 mls/hr Documented By: RODRIGUEZ Levofloxacin (Levaquin) 500 mg in 100 mls @ 100 mls/hr IV Q24H [facility] Last Infusion: 07/08/22 23:13 Dose: 0 mls/hr Documented By: NIRU Ketorolac Tromethamine (Ketorolac Tromethamine 15 Mg/Ml Vial) 15 mg IVPUSH Q6H [facility] Last Admin: 07/09/22 08:00 Dose: 15 mg Documented By: RODRIGUEZ Metoclopramide HCl (Metoclopramide Hcl 5 Mg Tablet) 5 mg PO TID PRN PRN Reason: Nausea And Vomiting Last Admin: 07/09/22 08:00 Dose: 5 mg Documented By: RODRIGUEZ Morphine Sulfate (Morphine Sulfate 2 Mg/Ml Cartridge) 2 mg IVPUSH Q4H PRN; Protocol PRN Reason: Pain, Mild (Pain Scale 1-3) Non-Formulary Medication (Budesonide) 9 mg PO DAILY [facility] Omeprazole (Omeprazole 20 Mg Capsule.Dr) 20 mg PO BID PRN PRN Reason: Acid Reflux Ondansetron HCl (Ondansetron Hcl 4 Mg/2 Ml Vial) 4 mg IVPUSH Q8H PRN PRN Reason: Nausea and Vomiting Pharmacy Consult (Consult Rx Perform Med Rec) 1 each MISCELLANE ONCE PRN PRN Reason: Consult order Polyethylene Glycol (Polyethylene Glycol 3350 17 Gm Powd.Pack) 17 gm PO DAILY [facility] Last Admin: 07/09/22 08:01 Dose: Not Given Documented By: RODRIGUEZ Non-Admin Reason: Patient Refused Venlafaxine HCl (Venlafaxine Hcl Er 75 Mg Cap.Er.24h) 75 mg PO DAILY [facility] Last Admin: 07/09/22 08:00 Dose: 75 mg Documented By: RODRIGUEZ Labs CBC & Chem 7: 07/08/22 11:31 07/08/22 11:31 Labs: Laboratory Results - last 24 hr 07/08/22 07/08/22 07/08/22 12:35 12:35 14:14 Urine Color Dark Yellow Urine Appearance Cloudy Urine pH 5.0 Ur Specific [place] >= 1.030 H Urine Protein Trace Urine Glucose (UA) Negative Urine Ketones 80 Urine Blood Moderate (2+) H Urine Nitrite Negative Ur Leukocyte Esterase Trace H Urine RBC 3-5 H Urine WBC 0-5 Ur Squamous Epith Cells 11-20 Urine Bacteria None Seen Hyaline Casts 0-2 COVID-19 ([facility]) Negative COVID-19 Clin Com See Note Influenza Type A ([facility]) Negative Influenza Type B ([place]) Negative Influenza A & B Note See Note Assessment and Plan (1) Abdominal pain: Status: Acute (2) Colitis: Status: Acute Plan 32 yo female with history of gastroparesis, Crohn's disease who presents to the ER for evaluation of ongoing LUQ abdominal pain for the last week associated with nausea and vomiting. Pale and uncomfortable on arrival. Abd soft but tender in the LUQ area. Spoke with Dr. Myers who is recommending repeating CT scan today with both PO and IV contrast. IV hydration, pain control. Likely admit for observation. 1. Abdominal pain/with persistent nausea vomiting ?? Constipation switch to full liquid diet Will switch her antibiotic to IV since can take p.o., added antibiotics, pain control avilez Toradol,iv hydration.? Also added gentle hydration. GI evaluation. 2. Gastroparesis: Will continue to monitor, home medical reconciliation depending 3. recent colitis?: continue iv antibiotics cdiff, GIP DVT prophylaxis:? Patient is young needs to ambulate. ongoing need : Abdominal pain/with persistent nausea vomiting,diarrhae- labs testin ,Gi eval pendin Time Spent With Patient Time: Total time managing care of this patient today ____ minutes. Quality Stroke Does the patient have a stroke diagnosis?: No VTE Prior VTE?: No VTE Risk Level:: Medical - moderate - high VTE Device Contraindication: N/A - Device Ordered VTE Drug Contraindication: N/A - Med Ordered
[2022-07-09 15:16] VITALS: BP 134/82; PULSE 62; RESP 18; TEMP 37.1; O2SAT 98
[2022-07-09 20:22] VITALS: BP 140/75; PULSE 64; RESP 17; TEMP 37.1; O2SAT 99
[2022-07-09 23:26] VITALS: BP 141/90; PULSE 52; RESP 16; TEMP 36.9; O2SAT 99
[2022-07-10] MEDS: Ketorolac Tromethamine 15 MG/ML VIAL IVPUSH ×2 (01:27→09:07)
[2022-07-10 04:00] VITALS: BP 137/86; PULSE 84; RESP 16; TEMP 36.6; O2SAT 100
[2022-07-10] MEDS: Lactated Ringers 1,000 ML 80 ML IVCONT (06:14)
[2022-07-10 06:46] LABS: CDiff Gene PCR NEGATIVE (Negative)
[2022-07-10 08:00] VITALS: BP 124/84; PULSE 75; RESP 18; TEMP 36.4; O2SAT 95
[2022-07-10] MEDS: Venlafaxine HCl ER 75 MG CAP.ER.24H PO (09:07)
[2022-07-10 09:15] LABS: Adenovirus F 40/41 Not Detected (Not Detect.); Astrovirus Not Detected (Not Detect.); Campylobacter Not Detected (Not Detect.); Cryptosporidium Not Detected (Not Detect.); Cyclospora cayetanensis Not Detected (Not Detect.); E. coli EAEC Not Detected (Not Detect.); E. coli EPEC Not Detected (Not Detect.); E. coli ETEC Not Detected (Not Detect.); E. coli STEC Not Detected (Not Detect.); Entamoeba histolytica Not Detected (Not Detect.); Giardia lamblia Not Detected (Not Detect.); Norovirus GI/GII Not Detected (Not Detect.); Plesiomonas shigelloides Not Detected (Not Detect.); Rotavirus A Not Detected (Not Detect.); Salmonella Not Detected (Not Detect.); Sapovirus Not Detected (Not Detect.); Shigella sp./EIEC Not Detected (Not Detect.); Vibrio Not Detected (Not Detect.); Vibrio Cholerae Not Detected (Not Detect.); Yersinia enterocolitica Not Detected (Not Detect.)
--- NOTE | 2022-07-10 12:40 | P.DS_ITS ---
DS: Providers Provider Date of Service: 07/10/22 Date of admission: 07/08/22 18:21 Date of discharge: 07/10/22 Primary care physician: Brian Bolanos NP Consults: 07/08/22 13:26 Consult to Gastroenterology Stat Consulting Provider: Ileana Myres Reason for consultation: abd pain, crohns flare? DS: Diagnosis Discharge Diagnosis (1) Abdominal pain: Status: Acute (2) Colitis: Status: Acute DS: Summary Hospital Course Hospital Course: 32 y/o F with history of Chron's colitis on budesonide, gastroparesis of unknown etiology presents the ER for evaluation of ongoing left upper quadrant abdominal pain associated with nausea and vomiting that started on 07/03.? Patient was seen in the GI clinic today. She was nauseated ,vomitin and c/o ongoing left sided abdominal pain. Vomited 3-4 times this morning. She was able to tolerate some PO yesterday but vomited 2x the day before. She has been having BM's every other day since . No fevers. She states she has missed a few doses of the abx due to vomiting She was seen here on that day where she had a CT scan showing large stool burden throughout the colon without evidence of abnormal bowel dilatation or bowel obstruction.? There was mild thickening of the wall of the rectosigmoid colon which could be related to underdistention or may represent stercoral colitis. ? She was discharged with antibiotics for colitis and UTI - cipro and flagyl. She says that she has feels still feels abdominal pain and feels generalized weak, and was went to GI clinic today morning and was sent for further evaluation. In the ED today CT of abdomen is done:?CT/CT abdomen pelvis w IV con IMPRESSION: No acute intra-abdominal process identified. Moderate colonic stool burden.? Lab imaging reviewed:? CBC fine, BMP also fine. CT of the abdomen seems fine In the ED patient received antiemetics, IV pain medications, laxatives and admission was requested because of persistent abdominal pain-pain management, also because patient could not able to complete her antibiotic course due to persistent nausea vomiting. Denies any new complaint of chest pain or shortness of breath? or fever or chills Denies any cough Denies any weakness or numbness. Hospital course: Patient was recently discharged from the hospital and possibly due to colitis had antibiotics , but her abdominal pain was not improving went to her GI his office was sent to the hospital for pain control ,iv antibiotics and workup for abdominal pain-CT abdominal was done shows most likely constipation. Patient was given laxative and seems to be improved tolerating diet, going home. d/w GI- repeat ct shows -likely constipation.so antibiotics discontinued.c diff and GI panel negative. Patient is to follow-up with the Dr. Myers out patiently. Above management discussed with patient in detail and she understand and in agreement with the above plan, time spent 40 minute. Time Spent with Patient Time attestation: Total time managing care of this patient today ____ minutes. Discharge coordination time: Greater than 30 minutes Quality: Safe Use of Opioids Does Pt have an Active Cancer Diagnosis on the Problem List?: No Quality: Stroke Does the patient have a stroke diagnosis?: No Physical Exam Vital Signs: Vital Signs: Last Vital Signs Temp 97.5 F 07/10/22 08:00 Pulse 75 07/10/22 08:00 Resp 18 07/10/22 08:00 BP 124/84 07/10/22 08:00 Pulse Ox 95 07/10/22 08:00 O2 Del Method 07/10/22 08:00 BMI result Body Mass Index 29.8 Appearance: Alert.? Oriented X3.? abdominal pain.? cvs: rrr, [id number] , no murmur res: clear to auscultation ,no rhonchii or wheezing abd: no rebound or guarding ,left sided abd pain, bs present. ext pulses present , no cyanosis . neuro: axo3 , nonfocal. DS: Data Data Completed and Pending Labs on day of discharge: Laboratory Results - last 24 hr 07/10/22 07/10/22 05:30 05:30 Stl C. cayetanensis PCR Not Detected Stool Rotavirus A PCR Not Detected Stl Adenov F 40/41 PCR Not Detected Stool Astrovirus (PCR) Not Detected Stool Campylobacter PCR Not Detected Stool Cryptosporidium PCR Not Detected Stl Sh Tox Pr E STEC PCR Not Detected Stool E coli O157 PCR Not applicable Stl Enterotoxigenic E PCR Not Detected Stool EPEC (PCR) Not Detected Stool EAEC (PCR) Not Detected Stl E. histolytica PCR Not Detected Stool Giardia Lamblia PCR Not Detected Stl P. shigelloides PCR Not Detected Stool Salmonella PCR Not Detected Stool Sapovirus (PCR) Not Detected Stl Shigella/EIEC PCR Not Detected St Y.enterocolitica PCR Not Detected Stool Vibrio (PCR) Not Detected Stl Vibrio cholerae PCR Not Detected Stl Norovirus GI/GII PCR Not Detected C. difficile Tox B Gene NEGATIVE Imaging Chest x-ray: Radiologist's impression: ITS Impressions Abdomen/Pelvis CT 07/08/22 15:15 IMPRESSION: No acute intra-abdominal process identified. Moderate colonic stool burden. Discharge Plan Discharge Patient Disposition: Home, Self-Care Discharge Diagnosis: abd pain possible related to constipation Referrals: Brian Bolanos, AIRCRA[employer]TENA[employer]CE DIRECTOR [Primary Care Provider] - 1 Week Discharge Medications: Continued budesonide 3 mg capsule,delayed,extend.release 9 mg PO DAILY Qty: 270 0RF metoclopramide HCl 5 mg tablet 1 tab PO TID PRN (Reason: Nausea And Vomiting) ondansetron 8 mg tablet,disintegrating 8 mg PO Q8H PRN (Reason: nausea/vomiting) venlafaxine 75 mg capsule,extended release 24hr 75 mg PO DAILY pantoprazole 40 mg tablet,delayed release (DR/EC) 40 mg PO BID PRN (Reason: Acid Reflux) Discontinued ciprofloxacin HCl 500 mg tablet 500 mg PO Q12H 7 Days Qty: 14 0RF metronidazole 500 mg tablet 500 mg PO Q8H 7 Days Qty: 21 0RF Discharge Orders: Discharge Order (Routine); Ordered 07/10/22 Ordered By: Mayo Quiroz Diet: Advance to usual diet Activity on Discharge: As tolerated Stand Alone Forms: Patient Portal Discharge page Care Plan Goals: Patient was recently discharged from the hospital and possibly due to colitis had antibiotics , but her abdominal pain was not improving went to her GI his office was sent to the hospital for pain control ,iv antibiotics and workup for abdominal pain-CT abdominal was done shows most likely constipation. Patient was given laxative and seems to be improved tolerating diet, going home. d/w GI- repeat ct shows -likely constipation.so antibiotics discontinued. Patient is to follow-up with the Dr. Myers out patiently. Health Concerns: as above. Plan of Treatment: as above. Assessment: as above. Patient Instructions: Constipation (DC)
--- NOTE | 2022-07-10 12:46 | MHC.CM.PN ---
PT WILL DC HOME TODAY WITH NO SERVICES FAMILY TO TRANSPORT
== END 2022-07-10 13:00 | disposition home or self-care (01) ==
LOC: HO.ED 17:10 → HO.EDOVER 18:28 → HO.S3 18:39
PROVIDERS: Physician Assistant; Admitting Provider Internal Medicine; Emergency Provider Student in an Organized Health Care Education/Training Program; PCP Nurse Practitioner Family; Visit Provider Internal Medicine
DX: K52.9 Noninfective gastroenteritis and colitis, unspecified (principal); K31.84 Gastroparesis; K59.00 Constipation, unspecified; R10.32 Left lower quadrant pain; Z20.822 Contact with and (suspected) exposure to COVID-19; Z79.899 Other long term (current) drug therapy
CPT/HCPCS: 36415; 74177; 80048; 80076; 81001; 83690; 85025; 85652; 86140; 87493; 87502; 87507; 87635; 96361; 96365; 96366; 96375; 96376; 99218; 99221; 99285; J1885; J1956; J2405; J2765; Q9967

== ENCOUNTER 2022-08-02 09:00 | Outpatient (REF) | payer OTHER, SELFPAY ==
--- NOTE | ~2022-08-02 | US_ITS ---
EXAMINATION: US DUPLEX ARTERIAL AND VENOUS ABDOMEN CLINICAL INFORMATION: Noninfective gastroenteritis and colitis with abdominal pain and weight loss. COMPARISON: None. TECHNIQUE: Routine color and Doppler imaging of abdominal aorta and GI arterial branches was performed. FINDINGS: The abdominal aorta is of normal caliber. The peak systolic velocity proximal SMA measures 127 cm/s and distal to SMA measures 59.9 cm/s. Celiac Artery: Peak systolic velocity in inspiration supine measures 196 cm/s and expiration supine measures 182 cm/s. On inspiration erect, velocity measures 119 cm/s and expiration erect velocity measures 104 cm/s. These are normal. SMA: Peak systolic velocity proximal segment measures 238 cm/s, midsegment measures 115 cm/s and distal segment measures 97.2 cm/s. BAR: Peak systolic velocity measures 165 cm/s. Splenic artery is patent with velocity measuring 194 cm/s. The hepatic artery is patent with velocity measuring 54.8 cm/s. US/US duplex arterial venous comp IMPRESSION: Normal aorta caliber and velocity. Normal origins of celiac, superior mesenteric and inferior mesenteric artery with normal velocities in these arteries. No suspicion for stenosis or narrowing.
== END 2022-08-02 09:01 | disposition home or self-care (01) ==
LOC: HO.HMGCX 09:00
PROVIDERS: PCP Nurse Practitioner Family; Visit Provider Internal Medicine Gastroenterology
DX: R10.9 Unspecified abdominal pain (principal); K31.84 Gastroparesis; K52.9 Noninfective gastroenteritis and colitis, unspecified
CPT/HCPCS: 93975

== ENCOUNTER 2022-08-29 19:57 | Emergency (ER) | payer OTHER, SELFPAY ==
--- NOTE | ~2022-08-29 | CT_ITS ---
EXAMINATION: CT HEAD WITHOUT CONTRAST CLINICAL INFORMATION: Headache for 5 months COMPARISON: CT head 04/01/2022 TECHNIQUE: Contiguous axial imaging was performed from the skull base to vertex without intravenous administration of contrast. Coronal and sagittal reformatted images are performed at the CT scanner. [This CT examination was performed using dose optimization techniques as appropriate, variously including the following: *Automated exposure control *Adjustment of mA and/or kV according to patient size (this includes techniques or standardized protocols for targeted exams where dose is matched to indication/reason for exam; i.e. extremities or head) *Use of iterative reconstruction technique] DLP: 665 mGy-cm. FINDINGS: There is no evidence of acute intracranial hemorrhage or territorial infarction. No abnormal mass-effect or midline shift is seen. Hickman to white matter differentiation is well preserved. No extra-axial fluid collections are identified. The ventricles are normal in size. There is no abnormal attenuation within the brain parenchyma. There is no osseous abnormality. The mastoid air cells and visualized portions of the paranasal sinuses are well-aerated. CT/CT head/brain wo IV con IMPRESSION: No acute intracranial pathology.
[2022-08-29 21:09] VITALS: BP 119/89; PULSE 81; RESP 18; TEMP 36.8; O2SAT 97; BMI 26.9
[2022-08-29 21:58] LABS: MANUAL DIFF FLAG NO
--- NOTE | 2022-08-29 22:02 | ED.HA ---
HPI - Headache General Chief Complaint: Headache Stated Complaint: headache Time Seen by Provider: 08/29/22 21:42 Source: patient Mode of arrival: ambulatory Limitations: no limitations History of Present Illness HPI Narrative: Patient comes to the emergency room complaining of a headache that has been present for 5 months. Patient states that occasionally she feels ?dizzy?, complaining of ?brain fog?, feeling exhausted all the time. Patient states that earlier today she was taking a nap and when she woke up, patient had an episode of neck stiffness that self-resolved. Related Data Home Medications Medication Instructions Recorded Confirmed venlafaxine 75 mg capsule,extended 75 mg PO DAILY 09/17/21 07/08/22 release 24 hr ondansetron 8 mg disintegrating 8 mg PO Q8H PRN nausea/vomiting 06/17/22 07/08/22 tablet pantoprazole 40 mg tablet,delayed 40 mg PO BID PRN Acid Reflux 06/17/22 07/08/22 release metoclopramide HCl 5 mg tablet 1 tab PO TID PRN Nausea And 07/08/22 07/08/22 Vomiting Previous Rx's Medication Instructions Recorded budesonide 3 mg 9 mg PO DAILY #270 caps 05/25/22 capsule,delayed,extended release pentoxifylline 400 mg 400 mg PO TID 30 days #90 tabs 07/19/22 tablet,extended release prucalopride 1 mg tablet 1 mg PO DAILY 30 days #30 tabs 07/19/22 (Motegrity) baclofen 5 mg tablet 5 mg PO TID PRN Muscle spasms #10 08/29/22 tabs Allergies Allergy/AdvReac Type Severity Reaction Status Date / Time No Known Allergies Allergy Verified 08/29/22 21:13 Review of Systems Review of Systems: Constitutional : No Weight loss, No Fever, No Chills, No Night Sweats, complaining of chronic fatigue ENT/Mouth : No Hearing loss, No Ear Pain, No Nasal Congestion, No Sinus Pain, No Hoarseness, No sore throat, No Rhinorrhea, No Swallowing Difficulty Eyes: No Eye Pain, No Swelling, No Redness, No Foreign Body, No Discharge, No Vision Changes Cardiovascular : No Chest Pain, No SOB, No Dyspnea on Exertion, No Orthopnea, No Edema, No Palpitations Respiratory : No Cough, No Sputum, No Wheezing, No Smoke Exposure, No Dyspnea Gastrointestinal : No Nausea, No Vomiting, No Diarrhea, No Constipation, No abdominal Pain, No Hematochezia, No Melena Genitourinary : no irregular bleeding, No Dysuria, No Urinary Frequency, No Hematuria, No Urinary Incontinence, No Urgency, No Flank Pain, No Urinary Flow Changes, No Hesitancy Musculoskeletal : No joint pain, No Myalgias, No Joint Swelling Skin : No Skin Lesions, No rash Neuro : No Weakness, No Numbness, complaining of dizziness and headache for 5 months Psych : No Anxiety/Panic, No Depression, No SI/HI/AH/VH, No Social Issues, Heme/Lymph: No Bruising, No Bleeding,No Lymphadenopathy Endocrine : No Polyuria, No Polydipsia, No Temperature Intolerance PMFSH Past Medical History Medical History Cholecystectomy planned Gastroparesis IBS (irritable bowel syndrome) Surgical History H/O oral surgery History of esophagogastroduodenoscopy (EGD) Hx laparoscopic cholecystectomy Hx of colonoscopy Hx of tonsillectomy Family History Family History Mother Heart disease Social History Social History Household Members: None Alcohol intake: never Patient Tobacco Use Status: Never used Tobacco Substance Use Type: Marijuana Advance Directives: No Advance Directives Information Provided: Yes service: No Current occupational status: employed 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 Oriented X3. No acute distress. Eyes: Pupils equal, round and reactive to light. Bilateral mydriasis ENT: Pharynx normal. Neck: Normal inspection. Neck supple. No lymph nodes noted. No crepitus, no neck stiffness, normal range of motion with flexion and extension CVS: Normal heart rate and rhythm. Pulses normal. Normal S1 and S2 Respiratory: No respiratory distress. Breath sounds normal. No Wheezing. No rales Abdomen: Soft and nontender. No rigidity. No distention. Skin: Skin warm and dry. Normal skin color. Normal skin turgor. Extremities: No lower extremity edema. No Lacerations. No Rash Neuro: Oriented X 3. No motor deficit. No sensory deficit. Moving all extremities. No slurred speech. CN 2 through 12 grossly intact Psych: calm, cooperative, normal affect Course Course Course Narrative: -patient has been having symptoms for 5 months. Patient has an appointment pending next month with Neurology. -patient's labs and head CT pending. Medical Decision Making Medical Decision Making MDM Narrative: -of patient's labs are normal. -patient has no neurological deficits -CT scan negative -patient has an appointment pending with Neurology. Differential Diagnosis Differential Diagnoses: The differential diagnosis associated with the presentation includes (Anxiety, tension headache, migraine headache, brain mass) Lab Data [facility] Lab Attestation statement: I reviewed the patient's lab results. 08/29/22 21:54 08/29/22 21:54 Labs: Lab Results 08/29/22 08/29/22 08/29/22 Range/Units 21:50 21:54 21:54 WBC 8.1 (4.8-10.8) X10*3/uL RBC 4.25 (4.20-5.50) X10*6/uL Hgb 12.7 (12.0-16.0) g/dl Hct 37.5 (37.0-47.0) % MCV 88.2 (80.0-98.0) fL MCH 29.9 (27.0-33.0) pg MCHC 33.9 (31.0-35.0) g/dl RDW 12.8 (11.0-16.0) % Plt Count 224 (160-400) X10*3/uL MPV 11.5 (9.4-12.3) fL Immature Gran % (Auto) 0.4 (0.0-0.4) % Neut % (Auto) 69.0 (45-73) % Lymph % (Auto) 23.8 (20-40) % Larue % (Auto) 6.1 (2-11) % Eos % (Auto) 0.5 (0-4) % Baso % (Auto) 0.2 (0-2) % Lymph # (Auto) 1.9 (1.2-4.9) X10*3/uL Larue # (Auto) 0.5 (0.1-1.2) X10*3/uL Eos # (Auto) 0.0 (0.0-0.4) X10*3/uL Baso # (Auto) 0.0 (0.0-0.2) X10*3/uL Abs Immat Gran (auto) 0.03 (0.00-0.03) X10*3/uL Absolute Neuts (auto) 5.6 (2.0-8.3) x10*3/uL Absolute Nucleated RBC 0.000 (0.0-0.012) X10*3/uL Nucleated RBC % (auto) 0.0 (0.0-0.2) /100WBC Sodium 139 (135-145) mmol/L Potassium 3.9 (3.3-5.1) mmol/L Chloride 108 (96-108) mmol/L Carbon Dioxide 21 L (22-29) mmol/L Anion Gap 14 (12-20) BUN 11 (9-16) mg/dL Creatinine 0.89 (0.5-1.4) mg/dL Estim Creat Clear Calc 99.5 Estimated GFR > 60 Random Glucose 97 (60-115) mg/dL Calcium 9.1 D (8.4-10.2) mg/dL Total Bilirubin 0.5 (0.0-1.0) mg/dL AST 14 (5-31) U/L ALT 12 (0-31) U/L Alkaline Phosphatase 47 (39-117) U/L Total Protein 6.9 (6.5-8.0) g/dL Albumin 4.3 (3.5-5.0) g/dL COVID-19 ([facility]) Negative (Negative) COVID-19 Clin Com See Note Independent Interpretation I performed an independent interpretation of an: CT Scan (My interpretation head CT: No acute findings, normal size ventricles) Radiology Impression Discussion of test interpretation with radiology: I have reviewed the radiologist's reading. Radiologist Impression: FINDINGS: There is no evidence of acute intracranial hemorrhage or territorial infarction. No abnormal mass-effect or midline shift is seen. Hickman to white matter differentiation is well preserved. No extra-axial fluid collections are identified. The ventricles are normal in size. There is no abnormal attenuation within the brain parenchyma. There is no osseous abnormality. The mastoid air cells and visualized portions of the paranasal sinuses are well-aerated. ? CT/CT head/brain wo IV con IMPRESSION: No acute intracranial pathology. Prescription Management I considered prescription management with: Other (I considered prescribing migraine medication and was discussed with the patient, who respectfully declined, states she has tried but does not help her headache. Patient states tramadol is being prescribed to her to control the pain) Discharge Plan Discharge Clinical Impression: Chronic headache, Musculoskeletal back pain Patient Disposition: Home, Self-Care Instructions: Musculoskeletal Pain (ED), General Headache (ED) Additional Instructions: Please follow-up with your primary care physician tomorrow. If you have any worsening or new symptoms, please return to the emergency room or call 911 Prescriptions: New baclofen 5 mg tablet 5 mg PO TID PRN (Reason: Muscle spasms) Qty: 10 0RF No Action budesonide 3 mg capsule,delayed,extend.release 9 mg PO DAILY Qty: 270 0RF Motegrity 1 mg tablet 1 mg PO DAILY 30 Days Qty: 30 1RF pentoxifylline 400 mg tablet extended release 400 mg PO TID 30 Days Qty: 90 2RF Rx Instructions: must administer with a meal/food metoclopramide HCl 5 mg tablet 1 tab PO TID PRN (Reason: Nausea And Vomiting) ondansetron 8 mg tablet,disintegrating 8 mg PO Q8H PRN (Reason: nausea/vomiting) venlafaxine 75 mg capsule,extended release 24hr 75 mg PO DAILY pantoprazole 40 mg tablet,delayed release (DR/EC) 40 mg PO BID PRN (Reason: Acid Reflux)
[2022-08-29 22:05] LABS: Basophils Percent Auto 0.2 % (0-2); Eosinophils Percent Auto 0.5 % (0-4); Hematocrit 37.5 % (37.0-47.0); Hemoglobin 12.7 g/dl (12.0-16.0); Imm Gran Abs Auto 0.03 X10*3/uL (0.00-0.03); Imm Gran Pct Auto 0.4 % (0.0-0.4); Lymphocytes Absolute Auto 1.9 X10*3/uL (1.2-4.9); Lymphocytes Percent Auto 23.8 % (20-40); Mean Corpuscular HGB Conc 33.9 g/dl (31.0-35.0); Mean Corpuscular Hemoglobin 29.9 pg (27.0-33.0); Mean Corpuscular Volume 88.2 fL (80.0-98.0); Mean Platelet Volume 11.5 fL (9.4-12.3); Monocytes Absolute Auto 0.5 X10*3/uL (0.1-1.2); Monocytes Percent Auto 6.1 % (2-11); Neutrophils Absolute Auto 5.6 x10*3/uL (2.0-8.3); Platelet Count 224 X10*3/uL (160-400); Red Blood Count 4.25 X10*6/uL (4.20-5.50); Red Cell Distribution Width 12.8 % (11.0-16.0); White Blood Count 8.1 X10*3/uL (4.8-10.8)
[2022-08-29 22:15] LABS: Alanine Aminotransferase 12 U/L (0-31); Albumin Level 4.3 g/dL (3.5-5.0); Alkaline Phosphatase 47 U/L (39-117); Anion Gap 14 (12-20); Aspartate Amino Transferase 14 U/L (5-31); Bilirubin Total 0.5 mg/dL (0.0-1.0); Blood Urea Nitrogen 11 mg/dL (9-16); Calcium 9.1 mg/dL (8.4-10.2); Carbon Dioxide 21 mmol/L (22-29); Chloride 108 mmol/L (96-108); Creatinine Clr Calc Pharmacy 99.5; Estimated Glomerular Filt Rate > 60; Glucose Random 97 mg/dL (60-115); Potassium 3.9 mmol/L (3.3-5.1); Sodium 139 mmol/L (135-145); Total Protein 6.9 g/dL (6.5-8.0)
[2022-08-29 22:15] LABS: COVID-19 Test Negative (Negative)
[2022-08-29 23:03] LABS: HCG Quantitative < 2 mIU/mL
== END 2022-08-29 23:21 | disposition home or self-care (01) ==
PROVIDERS: Emergency Provider Emergency Medicine; PCP Nurse Practitioner Family
DX: R51.9 Headache, unspecified (principal); R42 Dizziness and giddiness; M54.50 Low back pain, unspecified; Z20.822 Contact with and (suspected) exposure to COVID-19; Z20.828 Contact with and (suspected) exposure to other viral communicable diseases; Z79.899 Other long term (current) drug therapy
CPT/HCPCS: 36415; 70450; 80053; 84702; 85025; 87635; 99282; 99284

== ENCOUNTER → 2022-09-26 10:43 | Outpatient (BNVA) | payer OTHER, SELFPAY | PROVIDERS: PCP Nurse Practitioner Family; Visit Provider Internal Medicine Gastroenterology | DX: R10.13 Epigastric pain (principal); R11.2 Nausea with vomiting, unspecified; R42 Dizziness and giddiness; H93.19 Tinnitus, unspecified ear | CPT/HCPCS: 99212 ==

== ENCOUNTER → 2022-10-06 13:27 | Outpatient (BNVA) | payer OTHER, SELFPAY | PROVIDERS: PCP Nurse Practitioner Family; Visit Provider Nurse Practitioner Family | DX: M51.9 Unspecified thoracic, thoracolumbar and lumbosacral intervertebral disc disorder (principal); M54.2 Cervicalgia; R20.2 Paresthesia of skin; M40.202 Unspecified kyphosis, cervical region; H93.13 Tinnitus, bilateral | CPT/HCPCS: 99202 ==

== ENCOUNTER → 2022-11-07 11:38 | Outpatient (BNVA) | payer OTHER, SELFPAY | PROVIDERS: PCP Physician Assistant; Visit Provider Internal Medicine Gastroenterology | DX: K31.84 Gastroparesis (principal) | CPT/HCPCS: 99212 ==

== ENCOUNTER 2022-11-09 12:23 | Day surgery (SDC) | payer OTHER, SELFPAY ==
[2022-11-09 13:27] VITALS: BMI 28.2
[2022-11-09 13:30] VITALS: BP 104/68; PULSE 84; RESP 18; TEMP 36.1; O2SAT 96
[2022-11-09 13:36] LABS: UPreg QC Valid YES; Urine Pregnancy NEGATIVE (NEGATIVE)
[2022-11-09] MEDS: Lactated Ringers 1,000 ML 100 ML IVCONT (13:49)
--- NOTE | 2022-11-09 13:52 | P.CONAN_ITS ---
[facility] Active Problems Active Problems: All Active Problems (Updated 10/06/22 @ 15:36 by CHELO Rivas) Tinnitus (Acute) Headache (Acute) Cervical kyphosis (Acute) Paresthesia of upper and lower extremities of both sides (Acute) Cervicalgia (Acute) Abdominal pain (Acute) Constipation (Acute) Colitis (Acute) Gastroparesis (Acute) Past Medical History Medical History Cholecystectomy planned Depression Gastroparesis Headache IBS (irritable bowel syndrome) Family History Family History Mother Depression Anxiety Maternal Grandfather Heart disease Father Depression Brother Hypertension Family history of problems with anesthesia: No Surgical History Surgical History H/O oral surgery History of esophagogastroduodenoscopy (EGD) Hx laparoscopic cholecystectomy Hx of colonoscopy Hx of tonsillectomy History of Problems with Anesthesia: No Social History Social History Household Members: None Alcohol intake: never Patient Tobacco Use Status: Never used Tobacco Use of substances other than those prescribed or required for medical reasons: Yes Substance Use Type: Marijuana Are you DNR?: No Advance Directives: No Advance Directives Information Provided: Yes service: No Current occupational status: employed 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 Meds Allergies Allergy/AdvReac Type Severity Reaction Status Date / Time No Known Allergies Allergy Verified 11/07/22 11:47 Active Medications: Current Medications Lactated Ringer's (Lr) 1,000 mls @ 100 mls/hr IVCONT .Q10H JUANITA Last Admin: 11/09/22 13:49 Dose: 100 mls/hr Home Medications Medication Instructions Recorded Confirmed Last Taken Type venlafaxine 75 mg capsule,extended 75 mg PO DAILY 09/17/21 11/09/22 07/02/22 History release 24 hr ondansetron 8 mg disintegrating 8 mg PO Q8H PRN nausea/vomiting 06/17/22 11/09/22 07/06/22 History tablet Exam Exam Date and Time: November 09, 2022 1352 Height,Weight and Vital Signs: Height 5 ft 7 in Weight 81.647 kg Last Vital Signs Temp 97.0 F 11/09/22 13:30 Pulse 84 11/09/22 13:30 Resp 18 11/09/22 13:30 BP 104/68 11/09/22 13:30 Pulse Ox 96 11/09/22 13:30 O2 Del Method Room Air 11/09/22 13:30 Pertinent Lab Results Pertinent Lab Results: Laboratory Tests 11/09/22 13:10 Urine Test NEGATIVE Airway Mallampati Class: II (implants left side, right ) TM Dist: >3cm Neck ROM: Full Heart: rrr Lungs: cta Assessment and Plan Assessment Anesthesia Assessment: Anesthesia Plan Discussed and Chart Reviewed Final Anesthetic Review Family History of Problems with Anesthesia: No History of Problems with Anesthesia: No NPO: Yes ASA Class: II Final Preanesthetic Review: No Changes in Pt Med Stat, Meds/Allgs Chart Reviewed and Consent Obtained/Reviewed Patient Risk: Intermediate Procedure Risk: Intermediate Anesthetic Plan Anesthetic Plan: MAC: Disposition: Standard PACU
--- NOTE | 2022-11-09 15:41 | MHC.SHP ---
Pre-Procedural Eval Section A Date of Service: 11/09/22 The patient is an INPATIENT: No The History & Physical has been completed within 30 days and I have reviewed it.: Yes Section B Chief Complaint: Gastroparesis Allergies: Allergies Allergy/AdvReac Type Severity Reaction Status Date / Time No Known Allergies Allergy Verified 11/07/22 11:47 Plan Diagnosis/Plan: Unchanged I have reviewed the history and physical and performed a pertinent physical examination on my patient. No changes have occurred unless specified. Time Spent With Patient Time: Total time managing care of this patient today ____ minutes.
--- NOTE | 2022-11-09 15:42 | W.PM.OPN ---
Operative Note Operative Note Date of Service: 11/09/22 Narrative: Procedure Description: EGD Indication: gastroparesis Anesthesia: MAC FLEXIBLE TRANSORAL UPPER GASTROINTESTINAL ENDOSCOPY UPPER ENDOSCOPY Consent: Indications for the procedure and potential complications of bleeding, perforation, reaction to medications and missed diagnosis were discussed with the patient and informed consent was obtained. Instrument: Olympus GIF H 190 J mid size upper endoscope Monitoring: Vital signs and clinical assessment, continuous EKG monitoring, Pulse oximetry, Carbon Dioxide monitoring and blood pressure monitoring were done throughout the procedure. Procedure: The patient was placed in the left lateral decubitis position and pre-procedure medications were administered and a bite block was placed. The endoscope was inserted into the mouth and advanced under direct vision to the third part of duodenum. A careful inspection was made as the upper endoscope was withdrawn including a retroflexed examination of the proximal stomach; Findings and interventions are described below. Findings: Larynx:normal Esophagus: GE junction at 40? cm, diaphragm hiatus at 40 cm, Stomach: mild gastric erythema. Grade 2 flap valve on retroflexed examination of the cardia. There was reduced gastric movement. The pylorus was stretched using a 20 mm balloon, no tears were seen. 100 units of botox were then injected around the pyloric outlet area Duodenum: Normal bulb and descending duodenum, Intervention: balloon dilation and botox injection Impression/Findings: gastroparesis PLAN: Cont with medications await surgical review for possible pyloroplasty
[2022-11-09 16:15] VITALS: PULSE 130; RESP 16; TEMP 37.2; O2SAT 95
[2022-11-09 16:30] VITALS: BP 123/81; PULSE 108; RESP 14; TEMP 37.6; O2SAT 98
== END 2022-11-09 17:11 | disposition home or self-care (01) ==
PROVIDERS: Nurse Practitioner; PCP Nurse Practitioner Family; Visit Provider Internal Medicine Gastroenterology
PROC: 0DJ08ZZ Inspection of Upper Intestinal Tract, Via Natural or Artificial Opening Endoscopic (ICD-10-PCS; CPT 43235; principal; 2022-11-09 15:00)
DX: K31.84 Gastroparesis (principal)
CPT/HCPCS: 43249; 43236; 81025; C1726; J0585

== ENCOUNTER 2022-11-11 07:26 | Emergency (ER) | payer OTHER, SELFPAY ==
--- NOTE | ~2022-11-11 | CT_ITS ---
EXAMINATION: CT ABDOMEN AND PELVIS WITH CONTRAST CLINICAL INFORMATION: Abdominal pain COMPARISON: CT of 07/08/2022 and 07/03/2022 TECHNIQUE: Multidetector volumetric images were obtained from the superior aspect of the liver through the pubic symphysis following administration 85 mL of Omnipaque 350 intravenous contrast. Sagittal and coronal reformatted images were obtained on the technologist's workstation. Oral contrast: No This CT examination was performed using dose optimization techniques as appropriate, variously including the following: *Automated exposure control *Adjustment of mA and/or kV according to patient size (this includes techniques or standardized protocols for targeted exams where dose is matched to indication/reason for exam; i.e. extremities or head) *Use of iterative reconstruction technique DLP: 584 mGy-cm FINDINGS: LUNG BASES: The visualized lung bases are unremarkable. LIVER, GALLBLADDER, AND BILIARY TREE: The liver is normal in size, shape, and attenuation. No focal hepatic lesion or biliary ductal dilatation is present. Focal fatty infiltration adjacent to the gallbladder fossa is unchanged. The gallbladder surgically absent. PANCREAS: Unremarkable. SPLEEN: Unremarkable. ADRENAL GLANDS: Unremarkable. KIDNEYS AND URETERS: The kidneys are normal in size, shape, and attenuation. No hydronephrosis, hydroureter, or calculi seen. No perinephric stranding. BLADDER: Unremarkable. GASTROINTESTINAL TRACT: The small bowel unremarkable. Fecal material is present throughout the ascending colon. Prominent submucosal hypodensity is evident in the descending colon, or sigmoid and rectum, a pattern which can be associated with colitis. The appendix is unremarkable. ABDOMINAL WALL: No significant hernia is appreciated. LYMPH NODES: Normal. VASCULAR: Unremarkable. PELVIC VISCERA: Unremarkable. A crenulated follicle and a small amount of fluid are evident in the right adnexa, physiologic. OSSEOUS STRUCTURES: Unremarkable. CT/CT abdomen pelvis w IV con IMPRESSION: 1. Prominent hypodensity in the submucosa of the descending colon, sigmoid and rectum, perhaps on the basis of an underlying colitis. 2. Fecal distention of the ascending and proximal transverse colon. Fleischner guidelines were followed.
[2022-11-11 07:45] VITALS: BP 130/94; PULSE 92; RESP 18; TEMP 36.6; O2SAT 97; BMI 28.2
[2022-11-11 07:55] LABS: MANUAL DIFF FLAG NO
[2022-11-11 07:56] LABS: Basophils Percent Auto 0.4 % (0-2); Eosinophils Absolute Auto 0.1 X10*3/uL (0.0-0.4); Eosinophils Percent Auto 1.1 % (0-4); Hematocrit 37.2 % (37.0-47.0); Hemoglobin 12.2 g/dl (12.0-16.0); Imm Gran Abs Auto 0.01 X10*3/uL (0.00-0.03); Imm Gran Pct Auto 0.1 % (0.0-0.4); Lymphocytes Absolute Auto 2.1 X10*3/uL (1.2-4.9); Lymphocytes Percent Auto 28.3 % (20-40); Mean Corpuscular HGB Conc 32.8 g/dl (31.0-35.0); Mean Corpuscular Hemoglobin 29.7 pg (27.0-33.0); Mean Corpuscular Volume 90.5 fL (80.0-98.0); Mean Platelet Volume 10.8 fL (9.4-12.3); Monocytes Absolute Auto 0.5 X10*3/uL (0.1-1.2); Monocytes Percent Auto 6.3 % (2-11); Neutrophils Absolute Auto 4.8 x10*3/uL (2.0-8.3); Neutrophils Percent Auto 63.8 % (45-73); Platelet Count 238 X10*3/uL (160-400); Red Blood Count 4.11 X10*6/uL (4.20-5.50); Red Cell Distribution Width 12.9 % (11.0-16.0); White Blood Count 7.5 X10*3/uL (4.8-10.8)
[2022-11-11] MEDS: diphenhydrAMINE HCL 50 MG/ML VIAL 25 MG IVPUSH (08:02)
--- NOTE | 2022-11-11 08:02 | ED_ITS ---
HPI - Abdominal Pain General Chief Complaint: Abdominal Pain Stated Complaint: abd pain had surgery november 09 Time Seen by Provider: 11/11/22 07:34 Source: patient Mode of arrival: ambulatory Limitations: no limitations History of Present Illness HPI narrative: This is 32 years old female with history of chronic abdominal, status post endoscopic balloon dilatation and Botox injection of the stomach for gastroparesis, presented to emergency department complaining of abdominal pain nausea unable to keep anything down. The procedure was done on November [address] Myers. elicited complaint: abdominal pain Pertinent past history: gastritis and other (gastroparesis) Onset (ago): day(s) (1) Pain Consistency: constant Location: epigastric Severity: mild Quality: cramping Radiation: none Associated symptoms: nausea and vomiting Related Data Home Medications Medication Instructions Recorded Confirmed venlafaxine 75 mg capsule,extended 75 mg PO DAILY 09/17/21 11/09/22 release 24 hr ondansetron 8 mg disintegrating 8 mg PO Q8H PRN nausea/vomiting 06/17/22 11/09/22 tablet Previous Rx's Medication Instructions Recorded sumatriptan succinate 100 mg tablet 50 - 100 mg PO .COMPLEX PRN 10/06/22 migraine headache 30 days #12 tabs mirtazapine 15 mg tablet 15 mg PO BEDTIME #30 tabs 10/20/22 prucalopride 1 mg tablet 1 mg PO DAILY 30 days #30 tabs 10/21/22 (Motegrity) azithromycin 500 mg tablet 500 mg PO DAILY 7 days #7 tabs 11/07/22 prochlorperazine 25 mg rectal 25 mg IA BID PRN nausea and 11/07/22 suppository (Compazine) vomiting #12 ea Allergies Allergy/AdvReac Type Severity Reaction Status Date / Time No Known Allergies Allergy Verified 11/07/22 11:47 Review of Systems Constitutional: Reports no additional constitutional complaints Gastrointestinal: Reports abdominal pain, Reports nausea and Reports vomiting Musculoskeletal: Reports no additional musculoskeletal complaints PMFSH Past Medical History Medical History Cholecystectomy planned Depression Gastroparesis Headache IBS (irritable bowel syndrome) Surgical History H/O oral surgery History of esophagogastroduodenoscopy (EGD) Hx laparoscopic cholecystectomy Hx of colonoscopy Hx of tonsillectomy Family History Family History Mother Depression Anxiety Maternal Grandfather Heart disease Father Depression Brother Hypertension Social History Social History Household Members: None Alcohol intake: never Patient Tobacco Use Status: Never used Tobacco Smoked in Last 30 Days: No Use of substances other than those prescribed or required for medical reasons: Yes Substance Use Type: Marijuana Substance Use Frequency: Daily Advance Directives: No Advance Directives Information Provided: Yes Patient : No service: No Current occupational status: employed 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 Physical Exam ED Vital Signs: Vital Signs - 24 hr 11/11/22 07:45 Temperature 97.8 F Pulse Rate 92 Respiratory Rate 18 Blood Pressure 130/94 H Pulse Oximetry 97 Oxygen Delivery Method Room Air BMI result Body Mass Index 28.2 Const General: cooperative Nutritional Appearance: well nourished Orientation/consciousness: patient oriented x3 Limitations: no limitations HENMT Head: Yes normal to inspection Face and sinus: Yes normal facial exam Neck Neck: Yes normal visual inspection Chest Chest palpation & inspection: normal inspection of the chest Resp Effort & Inspection: normal respiratory effort Auscultation: clear to auscultation bilaterally Cardio Jugular venous distension: no JVD Palpation: normal PMI Rate: regular rate Rhythm: regular rhythm GI Inspection: Yes normal to inspection Palpation (GI): Soft to palpation, not firm, nontender, no guarding and not rigid Auscultation: normal bowel sounds Skin General skin exam: no rashes or lesions noted, elasticity normal and turgor normal Lesions: no lesions Neuro General: patient oriented x3 Course Reevaluation(s) Reevaluation #1: dekiran much bbetter ct OK will d/c Medical Decision Making Medical Decision Making [facility] Narrative: Patient again abdominal pain and presented with recurrent abdominal pain and vomiting after endoscopy 2 days ago will get labs will give fluids will do CT Differential Diagnosis Differential Diagnoses: The differential diagnosis associated with the presentation includes Colitis/diverticulitis/perforated stomach after endoscopy Admission/Observation Consideration of admission/observation: Escalation of care including admission/observation considered Consult Healthcare Provider Management of the patient was discussed with: Business System Consultant DR Myers Lab Data [facility] Lab Attestation statement: I reviewed the patient's lab results. 11/11/22 07:50 11/11/22 07:50 Labs: Lab Results 11/11/22 11/11/22 Range/Units 07:50 07:50 WBC 7.5 (4.8-10.8) X10*3/uL RBC 4.11 L (4.20-5.50) X10*6/uL Hgb 12.2 (12.0-16.0) g/dl Hct 37.2 (37.0-47.0) % MCV 90.5 (80.0-98.0) fL MCH 29.7 (27.0-33.0) pg MCHC 32.8 (31.0-35.0) g/dl RDW 12.9 (11.0-16.0) % Plt Count 238 (160-400) X10*3/uL MPV 10.8 (9.4-12.3) fL Immature Gran % (Auto) 0.1 (0.0-0.4) % Neut % (Auto) 63.8 (45-73) % Lymph % (Auto) 28.3 (20-40) % Petroleum % (Auto) 6.3 (2-11) % Eos % (Auto) 1.1 (0-4) % Baso % (Auto) 0.4 (0-2) % Lymph # (Auto) 2.1 (1.2-4.9) X10*3/uL Petroleum # (Auto) 0.5 (0.1-1.2) X10*3/uL Eos # (Auto) 0.1 (0.0-0.4) X10*3/uL Baso # (Auto) 0.0 (0.0-0.2) X10*3/uL Abs Immat Gran (auto) 0.01 (0.00-0.03) X10*3/uL Absolute Neuts (auto) 4.8 (2.0-8.3) x10*3/uL Absolute Nucleated RBC 0.000 (0.0-0.012) X10*3/uL Nucleated RBC % (auto) 0.0 (0.0-0.2) /100WBC Sodium 140 (135-145) mmol/L Potassium 4.0 (3.3-5.1) mmol/L Chloride 113 H (96-108) mmol/L Carbon Dioxide 22 (22-29) mmol/L Anion Gap 9 L (12-20) BUN 12 (9-16) mg/dL Creatinine 0.85 (0.5-1.4) mg/dL Estim Creat Clear Calc 106.3 Estimated GFR > 60 Random Glucose 120 H (60-115) mg/dL Calcium 8.8 (8.4-10.2) mg/dL Total Bilirubin 0.3 (0.0-1.0) mg/dL AST 12 (5-31) U/L ALT 9 (0-31) U/L Alkaline Phosphatase 56 (39-117) U/L Total Protein 6.4 L (6.5-8.0) g/dL Albumin 3.9 (3.5-5.0) g/dL Lipase 22 (8-78) U/L Beta HCG, Quant < 2 mIU/mL normal labs Independent Interpretation I performed an independent interpretation of an: CT Scan Interpretation: normal ct Radiology Impression Discussion of test interpretation with radiology: I have reviewed the radiologist's reading. Radiologist Impression: LYMPH NODES: Normal. VASCULAR: Unremarkable. PELVIC VISCERA: Unremarkable. A crenulated follicle and a small amount of fluid are evident in the right adnexa, physiologic. OSSEOUS STRUCTURES: Unremarkable.? CT/CT abdomen pelvis w IV con IMPRESSION: ? 1. Prominent hypodensity in the submucosa of the descending colon, sigmoid and rectum, perhaps on the basis of an underlying colitis. ? 2. Fecal distention of the ascending and proximal transverse colon.? ? Fleischner guidelines were followed. Dictated By: Carlos Arce MD Signed By: <Electronically signed by Carlos Arce MD in [place]> 11/11/22940 DD/ 4 External Record Review External record reviewed: Inpatient record Medications Administered Discontinued Medications Generic Name Dose Route Start Last Admin Trade Name Freq PRN Reason Stop Dose Admin Diphenhydramine HCl 25 mg 11/11/22 07:42 11/11/22 08:02 Diphenhydramine Hcl 50 Mg/Ml Vial IVPUSH 11/11/22 07:43 25 mg ONCE ONE Administration Sodium Chloride 1,000 mls @ 999 mls/hr 11/11/22 07:45 11/11/22 09:41 Ns IVCONT 11/11/22 08:45 Infused .Q1H1M JUANITA Infusion Iohexol 85 ml 11/11/22 08:56 11/11/22 09:08 Iohexol 350 Mg/Ml 100 Ml Infus..Btl IV 11/11/22 08:57 85 ml ONCE ONE Administration Metoclopramide HCl 10 mg 11/11/22 07:42 11/11/22 08:03 Metoclopramide Hcl 10 Mg/2 Ml Vial IVPUSH 11/11/22 07:43 10 mg ONCE ONE Administration Discharge Plan Discharge Clinical Impression: Gastroparesis, Vomiting Patient Disposition: Home, Self-Care Instructions: Acute Nausea and Vomiting (ED) Additional Instructions: Clear liquid diet today return if you worse follow-up with your gastroenterology Prescriptions: No Action mirtazapine 15 mg tablet 15 mg PO BEDTIME Qty: 30 1RF Rx Instructions: take 1/2 tab for 1 week then 1 tab after Motegrity 1 mg tablet 1 mg PO DAILY 30 Days Qty: 30 1RF ondansetron 8 mg tablet,disintegrating 8 mg PO Q8H PRN (Reason: nausea/vomiting) sumatriptan succinate 100 mg tablet 50 - 100 mg PO .COMPLEX PRN (Reason: migraine headache) 30 Days Qty: 12 6RF Rx Instructions: 50 - 100 mg orally at onset of headache, may repeat in 2 hrs PRN; max 2 tabs per day or 4 tabs/week (may take with Ibuprofen) azithromycin 500 mg tablet 500 mg PO DAILY 7 Days Qty: 7 0RF prochlorperazine [Compazine] 25 mg suppository 25 mg IA BID PRN (Reason: nausea and vomiting) Qty: 12 0RF venlafaxine 75 mg capsule,extended release 24hr 75 mg PO DAILY Referrals: Physician,Unknown J [Primary Care Provider] - 2 days
[2022-11-11] MEDS: 0.9 % Sodium Chloride 1,000 ML 999 ML IVCONT (08:03)
[2022-11-11] MEDS: Metoclopramide HCl 10 MG/2 ML VIAL IVPUSH (08:03)
[2022-11-11 08:21] LABS: Alanine Aminotransferase 9 U/L (0-31); Albumin Level 3.9 g/dL (3.5-5.0); Alkaline Phosphatase 56 U/L (39-117); Anion Gap 9 (12-20); Aspartate Amino Transferase 12 U/L (5-31); Bilirubin Total 0.3 mg/dL (0.0-1.0); Blood Urea Nitrogen 12 mg/dL (9-16); Calcium 8.8 mg/dL (8.4-10.2); Carbon Dioxide 22 mmol/L (22-29); Chloride 113 mmol/L (96-108); Creatinine Clr Calc Pharmacy 106.3; Estimated Glomerular Filt Rate > 60; Glucose Random 120 mg/dL (60-115); Lipase 22 U/L (8-78); Sodium 140 mmol/L (135-145); Total Protein 6.4 g/dL (6.5-8.0)
[2022-11-11 08:40] LABS: HCG Quantitative < 2 mIU/mL
[2022-11-11] MEDS: iohexoL 350 MG/ML 100 ML INFUS..BTL 85 ML IV (09:08)
[2022-11-11 11:12] VITALS: BP 101/72; PULSE 61; RESP 14; TEMP 37.3; O2SAT 97
== END 2022-11-11 11:32 | disposition home or self-care (01) ==
PROVIDERS: Emergency Provider Emergency Medicine
DX: R11.11 Vomiting without nausea (principal); K31.84 Gastroparesis; Z79.899 Other long term (current) drug therapy
CPT/HCPCS: 36415; 74177; 80053; 83690; 84702; 85025; 96361; 96374; 96375; 99284; J1200; J2765; Q9967

== ENCOUNTER 2022-11-18 09:55 | Outpatient (REF) | payer OTHER, SELFPAY | END 2022-11-18 09:56 | disposition home or self-care (01) | LOC: HO.LAB 09:55 | PROVIDERS: PCP Physician Assistant; Referring Provider Internal Medicine Gastroenterology; Visit Provider Surgery | DX: K31.84 Gastroparesis (principal); K52.9 Noninfective gastroenteritis and colitis, unspecified; K59.00 Constipation, unspecified; K21.9 Gastro-esophageal reflux disease without esophagitis; R10.9 Unspecified abdominal pain; Z79.899 Other long term (current) drug therapy | CPT/HCPCS: 36415; 84134; 99202 ==

== ENCOUNTER 2022-11-28 11:00 | Outpatient (REF) | payer OTHER, SELFPAY ==
--- NOTE | ~2022-11-28 | MR_ITS ---
EXAMINATION: MR BRAIN WITHOUT AND WITH CONTRAST CLINICAL INFORMATION: Headache. Question CSF low pressure headache. COMPARISON: Head CT 08/29/2022. TECHNIQUE: Multiplanar, multisequence imaging of the brain was performed before and after the intravenous administration of 8.5 mL of Gadavist. FINDINGS: There is no acute infarction, mass, hemorrhage, or extra-axial collection. No abnormal or unexpected intracranial enhancement is seen. The ventricles, sulci, and basilar cisterns are normal in size and configuration. The midline structures appear normal. There is no Chiari I malformation. No brain parenchymal abnormality is seen. The flow voids of the major intracranial arteries appear intact. The bones and extracranial soft tissues are within normal limits. The orbits appear normal. The sella appears normal. MR/MR head/brain wo/w con IMPRESSION: No mass lesion, acute infarction, or abnormal intracranial enhancement.
== END 2022-11-28 11:01 | disposition home or self-care (01) ==
LOC: HO.MRI 11:00
PROVIDERS: PCP Nurse Practitioner Family; Visit Provider Nurse Practitioner Family
DX: R51.9 Headache, unspecified (principal); R20.2 Paresthesia of skin; M54.2 Cervicalgia; H93.19 Tinnitus, unspecified ear
CPT/HCPCS: 70553; A9585

== ENCOUNTER 2022-12-29 11:49 | Emergency (ER) | payer OTHER, SELFPAY ==
[2022-12-29 12:06] VITALS: BP 153/95; PULSE 111; RESP 20; TEMP 36.3; O2SAT 98; BMI 28.2
--- NOTE | 2022-12-29 12:09 | PC.NURSE ---
Patient arrived from home with brother other stating that she has chronic medical conditions and yesterday started with a terrible headache that got worse last evening. States pain got so bad last night that she started having thoughts of SI. Denies having a plan just that pain was so great she cant take it anymore. Had brain MRI that she reports was negative but continues to have unbearable headaches. Security assisted with changes over, resting in room at this time.
--- NOTE | 2022-12-29 12:17 | PC.NURSE ---
Reports neck pain along with headache. States that she smokes weed frequently throughout the day to help with her GI pain along with head/neck pain. States lately has been smoking much more to the point where she feels like it has become an addiction. States weed helps with the pain but feels like she in unable to function recently.
--- NOTE | 2022-12-29 12:52 | ED_ITS ---
HPI - Psych General Chief Complaint: Psychiatric Symptoms Stated Complaint: SI Thoughts Neck head Pain Time Seen by Provider: 12/29/22 12:13 Source: patient Mode of arrival: ambulatory Limitations: no limitations History of Present Illness HPI Narrative: 32-year-old female history of depression, cervical kyphosis, colitis, gastroparesis, cervialgia, chronic headache, presents to the ED for Suicidal Ideation due to chronic health issues and not having a therapists. patient sometimes takes her psych meds. patient states no headcahe now just posterior neck pain that has been crhonic for 10 months. patient had normal Brain MRI. Patient had cervical xray which shows kypohisis and cerivcal radiculpahty. Her insurance would not approve of the neck MRI which her PCP ordered. Negative for any upper extremity paralysis, tingling, or numbness. Patient denies any slurred speech, facial droop, loss of vision, or paralysis of extremities. Patient states has no plan to kill herself but feels suicidal due to chronic issues. Patient denies any GI or complaints. Patient denies any photophobia, nausea, vomiting, neck stiffness, fever, chills, or headache. Related Data Home Medications Medication Instructions Recorded Confirmed venlafaxine 75 mg capsule,extended 75 mg PO DAILY 09/17/21 11/18/22 release 24 hr ondansetron 8 mg disintegrating 8 mg PO Q8H PRN nausea/vomiting 06/17/22 11/18/22 tablet Previous Rx's Medication Instructions Recorded sumatriptan succinate 100 mg tablet 50 - 100 mg PO .COMPLEX PRN 10/06/22 migraine headache 30 days #12 tabs azithromycin 500 mg tablet 500 mg PO DAILY 7 days #7 tabs 11/07/22 lactulose 10 gram/15 mL (15 mL) 10 g (15 mL) PO BID #1,440 mL 11/16/22 oral solution rizatriptan 10 mg tablet 5 - 10 mg PO Q2H PRN migraine 12/09/22 headache 21 days #12 tabs mirtazapine 15 mg tablet 15 mg PO BEDTIME #30 tabs 12/12/22 prucalopride 1 mg tablet 1 mg PO DAILY #30 tabs 12/28/22 (Motegrity) cyclobenzaprine 10 mg tablet 10 mg PO BEDTIME PRN muscle spasm 06/22/23 7 days #7 tabs naproxen 500 mg tablet 500 mg PO BID PRN pain 7 days #14 12/29/22 tabs Allergies Allergy/AdvReac Type Severity Reaction Status Date / Time No Known Allergies Allergy Verified 11/18/22 10:06 Review of Systems Review of Systems: chronic neck pain. Suicidal Yes all other systems are reviewed and are negative [facility] Past Medical History Medical History Cholecystectomy planned Depression Gastroparesis Headache IBS (irritable bowel syndrome) Surgical History H/O oral surgery History of esophagogastroduodenoscopy (EGD) Hx laparoscopic cholecystectomy Hx of colonoscopy Hx of tonsillectomy Family History Family History Mother Depression Anxiety Maternal Grandfather Heart disease Father Depression Brother Hypertension Social History Social History Household Members: None Alcohol intake: never Patient Tobacco Use Status: Never used Tobacco Smoked in Last 30 Days: No Use of substances other than those prescribed or required for medical reasons: Yes Substance Use Type: Marijuana Substance Use Frequency: Daily Substance Use Frequency Other:: all throughout the day Last Used Substance: Hours (ago) Any prior treatment program specific to substance use: No Advance Directives: No Advance Directives Information Provided: No Patient : No service: No Current occupational status: employed 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 Physical Exam Vital Signs: Vital Signs: Last Vital Signs Temp 97.3 F 12/29/22 12:06 Pulse 111 H 12/29/22 12:06 Resp 20 12/29/22 12:06 BP 153/95 H 12/29/22 12:06 Pulse Ox 98 12/29/22 12:06 O2 Del Method Room Air 12/29/22 12:06 BMI result Body Mass Index 28.2 Const: General: cooperative, healthy appearing, comfortable, no acute distress, well developed, alert, awake and Physically active O rientation/consciousness: oriented to person, oriented to place, oriented to time and patient oriented x3 HEENT: Head: Yes normal to inspection, Yes No palpable skull fracture present, Yes normocephalic, Yes atraumatic and No abrasion Eyes: General: appearance normal, both eyes and all related structures Neck: Neck: Yes normal visual inspection, Yes full ROM, Yes no lymphadenopathy, Yes no meningeal signs, Yes trachea midline, Yes supple, No anterior neck swelling and No tender Chest: Chest palpation & inspection: normal inspection of the chest and normal palpation of entire chest wall Resp: Effort & Inspection: normal respiratory effort and able to speak in complete sentences Auscultation: clear to auscultation bilaterally Cardio: Jugular venous distension: no JVD Heart sounds: S1 normal heart sound present and S2 normal heart sound present GI: Inspection: Yes normal to inspection and No abdominal wall ecchymosis Palpation (GI): Soft to palpation, not firm, nontender, no guarding and not rigid : General: No CVA tenderness and Yes no CVA tenderness Back/Spine/Pelvis: Back: no CVA tenderness, No CVA tenderness and No back tenderness Skin: General skin exam: no rashes or lesions noted and elasticity normal Neuro: General: oriented to person, oriented to place, oriented to time, patient oriented x3, gait normal, tone normal, moves all extremities, Normal light touch and pain sensation, no meningeal signs, no focal motor deficits and CN's II-XI intact bilaterally Extrem: General: Yes normal to inspection and Yes full ROM Psych: Appearance: grossly normal, well kempt and not disheveled Course Course Course Narrative: Labs and pain med orders. Care team consult placed. History physical exam does not indicate meningitis. Not suspecting brain bleed or encephalitis. Patient given Motrin and muscle relaxer. Not suspecting cervical fracture/subluxation Reevaluation(s) Reevaluation #1: Patient evaluated by care team consulted who states patient will be discharged and has a bed waiting for her at partial hospitalization program. Patient also have referral to therapist and will follow up with her primary care and Gastroenterology is here in the hospital. Labs are normal patient is safe for discharge Time: 15:13 Medications Administered Discontinued Medications Generic Name Dose Route Start Last Admin Trade Name Freq PRN Reason Stop Dose Admin Cyclobenzaprine HCl 10 mg 12/29/22 12:52 12/29/22 13:09 Cyclobenzaprine Hcl 10 Mg Tablet PO 12/29/22 12:53 10 mg ONCE ONE Administration Ibuprofen 800 mg 12/29/22 12:52 12/29/22 13:09 Ibuprofen 800 Mg Tablet PO 12/29/22 12:53 800 mg ONCE ONE Administration Medical Decision Making Medical Decision Making MDM Narrative: 32-year-old female presents to the ED for suicidal ideation due to chronic elements. Patient has no plan but just SI thoughts. Patient medically cleared. Not suspecting meningitis, brain bleed, ectopic , peritonitis, colitis abscess, cephalitis, stroke, paralysis of extremities, or any other life alteri ng/threatening elements. Patient will be going to partial. Differential Diagnosis Differential Diagnoses: The differential diagnosis associated with the presentation includes (Cervical radiculopathy, depression, suicidal, homicidal, meningitis, brain bleed, encephalitis, peritonitis, cephalitis, stroke, colitis,) Admission/Observation Consideration of admission/observation: Escalation of care including admission/observation considered Consult Healthcare Provider Management of the patient was discussed with: Supervisor [employer] (Care team it web development consultant) Lab Data [facility] Lab Attestation statement: I reviewed the patient's lab results. 12/29/22 12:51 12/29/22 12:51 Labs: Lab Results 12/29/22 12/29/22 12/29/22 Range/Units 12:45 12:45 12:45 WBC (4.8-10.8) X10*3/uL RBC (4.20-5.50) X10*6/uL Hgb (12.0-16.0) g/dl Hct (37.0-47.0) % MCV (80.0-98.0) fL MCH (27.0-33.0) pg MCHC (31.0-35.0) g/dl RDW (11.0-16.0) % Plt Count (160-400) X10*3/uL MPV (9.4-12.3) fL Immature Gran % (Auto) (0.0-0.4) % Neut % (Auto) (45-73) % Lymph % (Auto) (20-40) % [place] % (Auto) (2-11) % Eos % (Auto) (0-4) % Baso % (Auto) (0-2) % Lymph # (Auto) (1.2-4.9) X10*3/uL [place] # (Auto) (0.1-1.2) X10*3/uL Eos # (Auto) (0.0-0.4) X10*3/uL Baso # (Auto) (0.0-0.2) X10*3/uL Abs Immat Gran (auto) (0.00-0.03) X10*3/uL Absolute Neuts (auto) (2.0-8.3) x10*3/uL Absolute Nucleated RBC (0.0-0.012) X10*3/uL Nucleated RBC % (auto) (0.0-0.2) /100WBC Sodium (135-145) mmol/L Potassium (3.3-5.1) mmol/L Chloride (96-108) mmol/L Carbon Dioxide (22-29) mmol/L Anion Gap (12-20) BUN (9-16) mg/dL Creatinine (0.5-1.4) mg/dL Estim Creat Clear Calc Estimated GFR Random Glucose (60-115) mg/dL Calcium (8.4-10.2) mg/dL Total Bilirubin (0.0-1.0) mg/dL AST (5-31) U/L ALT (0-31) U/L Alkaline Phosphatase (39-117) U/L Total Protein (6.5-8.0) g/dL Albumin (3.5-5.0) g/dL Urine Color Yellow Urine Appearance Clear Urine pH 5.5 (5.0-9.0) Ur Specific [place] 1.015 (1.005-1.025) Urine Protein Negative (Neg-Trace) mg/dL Urine Glucose (UA) Negative (Negative) mg/dL Urine Ketones Negative (Negative) mg/dL Urine Blood Trace H (Negative) Urine Nitrite Negative (Negative) Ur Leukocyte Esterase Trace H (Negative) Urine RBC 0-2 (0-2) /HPF Urine WBC 0-5 (0-5) /HPF Ur Squamous Epith Cells 6-10 (0-2) /HPF Urine Bacteria 1+ (None Seen) Hyaline Casts 0-2 (0-2) /LPF Urine Test NEGATIVE (NEGATIVE) Urine Opiates Screen Not Detected (Not Detect) Urine Fentanyl Screen Not Detected (Not Detect) Ur Barbiturates Screen Not Detected (Not Detect) Ur Phencyclidine Scrn Not Detected (Not Detect) Ur Amphetamines Screen Not Detected (Not Detect) U Benzodiazepines Scrn Not Detected (Not Detect) Urine Cocaine Screen Not Detected (Not Detect) U Marijuana (THC) Screen POSITIVE H (Not Detect) Ethyl Alcohol mg/dL COVID-19 (GREG) (Negative) COVID-19 Clin Com 12/29/22 12/29/22 12/29/22 Range/Units 12:45 12:51 12:51 WBC 8.1 (4.8-10.8) X10*3/uL RBC 4.27 (4.20-5.50) X10*6/uL Hgb 12.7 (12.0-16.0) g/dl Hct 39.0 (37.0-47.0) % MCV 91.3 (80.0-98.0) fL MCH 29.7 (27.0-33.0) pg MCHC 32.6 (31.0-35.0) g/dl RDW 12.7 (11.0-16.0) % Plt Count 270 (160-400) X10*3/uL MPV 10.3 (9.4-12.3) fL Immature Gran % (Auto) 0.4 (0.0-0.4) % Neut % (Auto) 66.1 (45-73) % Lymph % (Auto) 25.1 (20-40) % [place] % (Auto) 7.4 (2-11) % Eos % (Auto) 0.5 (0-4) % Baso % (Auto) 0.5 (0-2) % Lymph # (Auto) 2.0 (1.2-4.9) X10*3/uL [place] # (Auto) 0.6 (0.1-1.2) X10*3/uL Eos # (Auto) 0.0 (0.0-0.4) X10*3/uL Baso # (Auto) 0.0 (0.0-0.2) X10*3/uL Abs Immat Gran (auto) 0.03 (0.00-0.03) X10*3/uL Absolute Neuts (auto) 5.4 (2.0-8.3) x10*3/uL Absolute Nucleated RBC 0.000 (0.0-0.012) X10*3/uL Nucleated RBC % (auto) 0.0 (0.0-0.2) /100WBC Sodium 140 (135-145) mmol/L Potassium 4.3 (3.3-5.1) mmol/L Chloride 106 (96-108) mmol/L Carbon Dioxide 26 (22-29) mmol/L Anion Gap 12 (12-20) BUN 9 (9-16) mg/dL Creatinine 0.80 (0.5-1.4) mg/dL Estim Creat Clear Calc 113.0 Estimated GFR > 60 Random Glucose 100 (60-115) mg/dL Calcium 9.5 D (8.4-10.2) mg/dL Total Bilirubin 0.4 (0.0-1.0) mg/dL AST 13 (5-31) U/L ALT 9 (0-31) U/L Alkaline Phosphatase 60 (39-117) U/L Total Protein 7.1 (6.5-8.0) g/dL Albumin 3.9 (3.5-5.0) g/dL Urine Color Urine Appearance Urine pH (5.0-9.0) Ur Specific [place] (1.005-1.025) Urine Protein (Neg-Trace) mg/dL Urine Glucose (UA) (Negative) mg/dL Urine Ketones (Negative) mg/dL Urine Blood (Negative) Urine Nitrite (Negative) Ur Leukocyte Esterase (Negative) Urine RBC (0-2) /HPF Urine WBC (0-5) /HPF Ur Squamous Epith Cells (0-2) /HPF Urine Bacteria (None Seen) Hyaline Casts (0-2) /LPF Urine Test (NEGATIVE) Urine Opiates Screen (Not Detect) Urine Fentanyl Screen (Not Detect) Ur Barbiturates Screen (Not Detect) Ur Phencyclidine Scrn (Not Detect) Ur Amphetamines Screen (Not Detect) U Benzodiazepines Scrn (Not Detect) Urine Cocaine Screen (Not Detect) U Marijuana (THC) Screen (Not Detect) Ethyl Alcohol mg/dL COVID-19 (GREG) Negative (Negative) COVID-19 Clin Com See Note 12/29/22 Range/Units 12:51 WBC (4.8-10.8) X10*3/uL RBC (4.20-5.50) X10*6/uL Hgb (12.0-16.0) g/dl Hct (37.0-47.0) % MCV (80.0-98.0) fL MCH (27.0-33.0) pg MCHC (31.0-35.0) g/dl RDW (11.0-16.0) % Plt Count (160-400) X10*3/uL MPV (9.4-12.3) fL Immature Gran % (Auto) (0.0-0.4) % Neut % (Auto) (45-73) % Lymph % (Auto) (20-40) % [place] % (Auto) (2-11) % Eos % (Auto) (0-4) % Baso % (Auto) (0-2) % Lymph # (Auto) (1.2-4.9) X10*3/uL [place] # (Auto) (0.1-1.2) X10*3/uL Eos # (Auto) (0.0-0.4) X10*3/uL Baso # (Auto) (0.0-0.2) X10*3/uL Abs Immat Gran (auto) (0.00-0.03) X10*3/uL Absolute Neuts (auto) (2.0-8.3) x10*3/uL Absolute Nucleated RBC (0.0-0.012) X10*3/uL Nucleated RBC % (auto) (0.0-0.2) /100WBC Sodium (135-145) mmol/L Potassium (3.3-5.1) mmol/L Chloride (96-108) mmol/L Carbon Dioxide (22-29) mmol/L Anion Gap (12-20) BUN (9-16) mg/dL Creatinine (0.5-1.4) mg/dL Estim Creat Clear Calc Estimated GFR Random Glucose (60-115) mg/dL Calcium (8.4-10.2) mg/dL Total Bilirubin (0.0-1.0) mg/dL AST (5-31) U/L ALT (0-31) U/L Alkaline Phosphatase (39-117) U/L Total Protein (6.5-8.0) g/dL Albumin (3.5-5.0) g/dL Urine Color Urine Appearance Urine pH (5.0-9.0) Ur Specific [place] (1.005-1.025) Urine Protein (Neg-Trace) mg/dL Urine Glucose (UA) (Negative) mg/dL Urine Ketones (Negative) mg/dL Urine Blood (Negative) Urine Nitrite (Negative) Ur Leukocyte Esterase (Negative) Urine RBC (0-2) /HPF Urine WBC (0-5) /HPF Ur Squamous Epith Cells (0-2) /HPF Urine Bacteria (None Seen) Hyaline Casts (0-2) /LPF Urine Test (NEGATIVE) Urine Opiates Screen (Not Detect) Urine Fentanyl Screen (Not Detect) Ur Barbiturates Screen (Not Detect) Ur Phencyclidine Scrn (Not Detect) Ur Amphetamines Screen (Not Detect) U Benzodiazepines Scrn (Not Detect) Urine Cocaine Screen (Not Detect) U Marijuana (THC) Screen (Not Detect) Ethyl Alcohol < 10 mg/dL COVID-19 (GREG) (Negative) COVID-19 Clin Com Radiology Impression Discussion of test interpretation with radiology: I have reviewed the radiologist's reading. Prescription Management I considered prescription management with: Pain Medication Discharge Plan Discharge Clinical Impression: Cervicalgia, Cervical kyphosis, Depression Patient Disposition: Home, Self-Care Instructions: Depression (ED), Chronic Neck Pain (DC) Additional Instructions: You will be sent to partial program. Return to the ED immediately for any suicidal/homicidal ideation, auditory/visual hallucinations, abdominal pain, diarrhea, blood in stool, fever, chills, chest pain, shortness of breath, neck pain, headache, photophobia, neck stiffness, fever, chills, rash, or any other concerning symptoms. 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 Please follow-up with therapist you will be referred to. Prescriptions: New naproxen 500 mg tablet 500 mg PO BID PRN (Reason: pain) 7 Days Qty: 14 0RF cyclobenzaprine 10 mg tablet 10 mg PO BEDTIME PRN (Reason: muscle spasm) 7 Days Qty: 7 0RF Rx Instructions: side effect is drowsiness. Do not take at work or while driving. No Action lactulose 10 gram/15 mL (15 mL) solution 10 g PO BID Qty: 1440 0RF rizatriptan 10 mg tablet 5 - 10 mg PO Q2H PRN (Reason: migraine headache) 21 Days Qty: 12 3RF Rx Instructions: max 2 tabs per day or 4 tabs per week mirtazapine 15 mg tablet 15 mg PO BEDTIME Qty: 30 1RF Rx Instructions: take 1/2 tab for 1 week then 1 tab after Motegrity 1 mg tablet 1 mg PO DAILY Qty: 30 1RF ondansetron 8 mg tablet,disintegrating 8 mg PO Q8H PRN (Reason: nausea/vomiting) sumatriptan succinate 100 mg tablet 50 - 100 mg PO .COMPLEX PRN (Reason: migraine headache) 30 Days Qty: 12 6RF Rx Instructions: 50 - 100 mg orally at onset of headache, may repeat in 2 hrs PRN; max 2 tabs per day or 4 tabs/week (may take with Ibuprofen) azithromycin 500 mg tablet 500 mg PO DAILY 7 Days Qty: 7 0RF venlafaxine 75 mg capsule,extended release 24hr 75 mg PO DAILY Stand Alone Forms: Work/School Release Interventions: [place]-Suicide Risk Severity Scale Last Done: 12/29/22 15:43 ED Discharge Assessment Last Done: 12/29/22 15:43 Discharge Date/Time: 12/29/22 15:46 Print Language: Burmese
[2022-12-29 12:57] LABS: MANUAL DIFF FLAG NO
[2022-12-29 13:00] LABS: Basophils Percent Auto 0.5 % (0-2); Eosinophils Percent Auto 0.5 % (0-4); Hemoglobin 12.7 g/dl (12.0-16.0); Imm Gran Abs Auto 0.03 X10*3/uL (0.00-0.03); Imm Gran Pct Auto 0.4 % (0.0-0.4); Lymphocytes Percent Auto 25.1 % (20-40); Mean Corpuscular HGB Conc 32.6 g/dl (31.0-35.0); Mean Corpuscular Hemoglobin 29.7 pg (27.0-33.0); Mean Corpuscular Volume 91.3 fL (80.0-98.0); Mean Platelet Volume 10.3 fL (9.4-12.3); Monocytes Absolute Auto 0.6 X10*3/uL (0.1-1.2); Monocytes Percent Auto 7.4 % (2-11); Neutrophils Absolute Auto 5.4 x10*3/uL (2.0-8.3); Neutrophils Percent Auto 66.1 % (45-73); Platelet Count 270 X10*3/uL (160-400); Red Blood Count 4.27 X10*6/uL (4.20-5.50); Red Cell Distribution Width 12.7 % (11.0-16.0); White Blood Count 8.1 X10*3/uL (4.8-10.8)
[2022-12-29 13:01] LABS: Appearance Urine Clear; Color Urine Yellow; Glucose Urine UA Negative (Negative); Leukocyte Esterase Urine Trace (Negative); Nitrite Urine Negative (Negative); PH 5.5 (5.0-9.0); Specific Gravity - Urine 1.015 (1.005-1.025); UMIC TRIGGER UACC YES; UPreg QC Valid YES; Urine Blood Trace (Negative); Urine Ketones Negative (Negative); Urine Pregnancy NEGATIVE (NEGATIVE); Urine Protein Negative (Neg-Trace)
[2022-12-29 13:04] LABS: Bacteria Urine 1+ (None Seen); Hyaline Casts Urine 0-2 /LPF (0-2); RBC Urine 0-2 /HPF (0-2); WBC Urine 0-5 /HPF (0-5)
[2022-12-29] MEDS: Ibuprofen 800 MG TABLET PO (13:09)
[2022-12-29] MEDS: Cyclobenzaprine HCl 10 MG TABLET PO (13:09)
[2022-12-29 13:15] LABS: Amphetamine Screen Urine Not Detected (Not Detect); Barbiturates, Urine Not Detected (Not Detect); Benzodiazepines Screen Urine Not Detected (Not Detect); Cannabinoid Screen Urine POSITIVE (Not Detect); Cocaine Screen Urine Not Detected (Not Detect); Fentanyl, urine Not Detected (Not Detect); Opiate Screen Urine Not Detected (Not Detect); Phencyclidine Screen Urine Not Detected (Not Detect)
[2022-12-29 13:21] LABS: Alanine Aminotransferase 9 U/L (0-31); Albumin Level 3.9 g/dL (3.5-5.0); Alkaline Phosphatase 60 U/L (39-117); Anion Gap 12 (12-20); Aspartate Amino Transferase 13 U/L (5-31); Bilirubin Total 0.4 mg/dL (0.0-1.0); Blood Urea Nitrogen 9 mg/dL (9-16); Calcium 9.5 mg/dL (8.4-10.2); Carbon Dioxide 26 mmol/L (22-29); Chloride 106 mmol/L (96-108); Estimated Glomerular Filt Rate > 60; Glucose Random 100 mg/dL (60-115); Potassium 4.3 mmol/L (3.3-5.1); Sodium 140 mmol/L (135-145); Total Protein 7.1 g/dL (6.5-8.0)
--- NOTE | 2022-12-29 13:21 | PC.NURSE ---
medicated for 10/10 neck pain per SEP. Brother visited patient and dropped off some additional belongings which have been locked up with pt belongings locker 4. Brother is leaving now and was given set of patients keys on way out.
[2022-12-29 13:22] LABS: Ethanol < 10 mg/dL
[2022-12-29 13:41] LABS: IDNOW Serial# BCCEAD1C
[2022-12-29 13:42] LABS: COVID-19 Test Negative (Negative)
--- NOTE | 2022-12-29 14:29 | PC.NURSE ---
pt resting/dozing, reports pain medications have helped slightly. another warm blanket brought to pt
--- NOTE | 2022-12-29 15:11 | MHC.CARE ---
patient seen by CARE team for evaluation. Patient agreeable to partial hospital referral, reports feeling safe to d/c home and ability to reach out to 911 or brother if SI escalates in the interim.
--- NOTE | 2022-12-29 15:44 | PC.NURSE ---
Alert and oriented, discharge instructions reviewed with patient who verbalized understanding. Denies SI. Belongings returned to patient, brought to lobby to wait for lyft.
--- NOTE | 2022-12-29 17:27 | MHC.CARE ---
patient to be referred for PHP, which she agrees to.
--- NOTE | 2022-12-30 10:33 | MHC.CARE ---
12/30/22 RAD Team completed and faxed referral for PHP. Will follow up tomorrow to confirm that it was received and get intake date to relay to the client.
--- NOTE | 2023-01-02 07:56 | MHC.CARE ---
T/w spoke with Jocelyne at [facility] who stated she received the referral and will be calling Leeanne today.
--- NOTE | 2023-01-02 11:25 | MHC.CARE ---
T/w spoke with Jocelyne at [facility] who stated pt decided to wait until after she returns from a planned vacation to start the PHP program. Jocelyne scheduled pt for Intake on 01/25 and to start date for 01/26.
== END 2022-12-29 15:46 | disposition home or self-care (01) ==
PROVIDERS: Physician Assistant; Emergency Provider Student in an Organized Health Care Education/Training Program; PCP Nurse Practitioner Family
DX: R45.851 Suicidal ideations (principal); M54.2 Cervicalgia; M40.202 Unspecified kyphosis, cervical region; Z20.822 Contact with and (suspected) exposure to COVID-19; F12.90 Cannabis use, unspecified, uncomplicated; Z79.899 Other long term (current) drug therapy
CPT/HCPCS: 36415; 80053; 80307; 81001; 81003; 81025; 85025; 87635; 99284; S9485

== ENCOUNTER 2023-01-05 08:54 | Outpatient (REF) | payer OTHER, SELFPAY ==
--- NOTE | ~2023-01-05 | FL_ITS ---
EXAMINATION: FL UPPER GI SERIES CLINICAL INFORMATION: Gastroparesis. COMPARISON: None available. TECHNIQUE: Routine upper GI air-contrast study was performed in upright and lying position. FINDINGS: Following oral administration of thick barium and effervescent granules, there is normal propagation of bolus from the oral cavity through the pharynx, esophagus into stomach without any evidence of obstruction, narrowing or stricture. On placing patient supine and prone lying, there is spontaneous moderate gastroesophageal reflux without hiatal hernia. The course, caliber and peristalsis of the stomach, duodenal bulb and the sweep is normal. The duodenal mucosal pattern is normal. FLUOROSCOPY TIME: 1.2 minutes DOSE AREA PRODUCT: 22.676 uGy-m2 (microgray-meter squared) FL/FL upper GI series IMPRESSION: Moderate gastroesophageal reflux without hiatal hernia. The rest of the upper GI exam is unremarkable.
== END 2023-01-05 08:55 | disposition home or self-care (01) ==
LOC: HO.XRAY 08:54
PROVIDERS: PCP Nurse Practitioner Family; Visit Provider Surgery
DX: K31.84 Gastroparesis (principal)
CPT/HCPCS: 74240

== ENCOUNTER → 2023-01-11 08:54 | Outpatient (BNVA) | payer OTHER, SELFPAY | PROVIDERS: PCP Nurse Practitioner Family; Visit Provider Nurse Practitioner Family | DX: R51.9 Headache, unspecified (principal); M54.2 Cervicalgia; M40.202 Unspecified kyphosis, cervical region; K52.839 Microscopic colitis, unspecified; K31.84 Gastroparesis; H93.19 Tinnitus, unspecified ear; F45.8 Other somatoform disorders; Z90.49 Acquired absence of other specified parts of digestive tract; F12.20 Cannabis dependence, uncomplicated | CPT/HCPCS: 99212 ==

== ENCOUNTER 2023-02-06 09:40 | Emergency (ER) | payer OTHER, SELFPAY ==
--- NOTE | ~2023-02-06 | US_ITS ---
EXAMINATION: US ABDOMEN LIMITED CLINICAL INFORMATION: Right upper quadrant pain. COMPARISON: None available. TECHNIQUE: Real-time imaging of the right upper quadrant abdominal viscera. FINDINGS: PANCREAS: Pancreatic head and pancreatic tail obscured by bowel gas shadowing. LIVER: Normal. The liver is normal in size. The liver contour is normal. Parenchymal echogenicity is normal. No focal hepatic lesion. There is no intrahepatic biliary duct dilatation seen. GALLBLADDER: Status post cholecystectomy. COMMON BILE DUCT: Normal in caliber measuring 0.5 cm in diameter. RIGHT KIDNEY: Normal. No hydronephrosis. No renal calculi or focal parenchymal lesions. The kidney measures 9.5 cm in maximum dimension. FREE FLUID: None. US/US abdomen limited IMPRESSION: Status post cholecystectomy. No CBD dilatation. Pancreatic head and tail obscured by bowel gas shadowing.
[2023-02-06 09:43] VITALS: BP 142/82; PULSE 98; RESP 17; TEMP 36; O2SAT 98; BMI 28.1
[2023-02-06 09:56] LABS: MANUAL DIFF FLAG NO
[2023-02-06 09:58] LABS: Basophils Percent Auto 0.4 % (0-2); Eosinophils Percent Auto 0.4 % (0-4); Hematocrit 39.2 % (37.0-47.0); Imm Gran Abs Auto 0.02 X10*3/uL (0.00-0.03); Imm Gran Pct Auto 0.2 % (0.0-0.4); Lymphocytes Absolute Auto 2.6 X10*3/uL (1.2-4.9); Lymphocytes Percent Auto 26.3 % (20-40); Mean Corpuscular HGB Conc 33.2 g/dl (31.0-35.0); Mean Corpuscular Hemoglobin 29.7 pg (27.0-33.0); Mean Corpuscular Volume 89.5 fL (80.0-98.0); Mean Platelet Volume 11.5 fL (9.4-12.3); Monocytes Absolute Auto 0.6 X10*3/uL (0.1-1.2); Monocytes Percent Auto 6.4 % (2-11); Neutrophils Absolute Auto 6.6 x10*3/uL (2.0-8.3); Neutrophils Percent Auto 66.3 % (45-73); Platelet Count 257 X10*3/uL (160-400); Red Blood Count 4.38 X10*6/uL (4.20-5.50); Red Cell Distribution Width 12.2 % (11.0-16.0); White Blood Count 9.9 X10*3/uL (4.8-10.8)
--- NOTE | 2023-02-06 10:14 | ED_ITS ---
HPI - Abdominal Pain General Chief Complaint: Abdominal Pain Stated Complaint: upper RQ pain Time Seen by Provider: 02/06/23 10:02 Source: patient Mode of arrival: ambulatory Limitations: no limitations History of Present Illness HPI narrative: 32 y/o F with PMHx of gastroparesis presents with right upper quadrant pain for 2 days. She has a history of baseline abdominal pain but reports that this feels different than usual. She reports that her pain started off mild and intermittent but today her pain is constant, 8/10 and occasionally radiates to RLQ. She denies fevers, chills, SOB, urinary symptoms, nausea and vomiting. She reports mild chest pain that is consistent with her baseline acid . She reports constipation but it is not more than she usually has with her gastroparesis. She states that this pain feels like her previous cholestasis but has previously had her gallbladder removed in 2017. Nothing makes the pain better or worse. She denies drinking alcohol but does smoke marijuana frequently MD elicited complaint: abdominal pain Pertinent past history: constipation and gastritis Onset (ago): day(s) Pain Consistency: constant Location: RUQ Pain scale (0-10): 8 Quality: dull and burning Radiation: RLQ Exacerbating factors: nothing Relieving factors: nothing Context: other (Gastroparesis) Related Data Patient : No Home Medications Medication Instructions Recorded Confirmed venlafaxine 75 mg capsule,extended 75 mg PO DAILY 09/17/21 01/11/23 release 24 hr ondansetron 8 mg disintegrating 8 mg PO Q8H PRN nausea/vomiting 06/17/22 01/11/23 tablet lactulose 10 gram/15 mL (15 mL) 10 g PO BID PRN 01/11/23 01/11/23 oral solution Previous Rx's Medication Instructions Recorded rizatriptan 10 mg tablet 5 - 10 mg PO Q2H PRN migraine 12/09/22 headache 21 days #12 tabs prucalopride 1 mg tablet 1 mg PO DAILY #30 tabs 12/28/22 (Motegrity) naproxen 500 mg tablet 500 mg PO BID PRN pain 7 days #14 12/29/22 tabs mirtazapine 15 mg tablet 15 mg PO BEDTIME 90 days #90 tabs 01/03/23 cyclobenzaprine 10 mg tablet 10 mg PO BID PRN muscle spasm 30 01/11/23 days #60 tabs onabotulinumtoxinA 100 unit 100 unit IM ONCE 12 weeks #1 ea 01/11/23 solution for injection (Botox) dicyclomine 20 mg tablet 20 mg PO TID PRN abdominal pain 02/06/23 #30 tabs Allergies Allergy/AdvReac Type Severity Reaction Status Date / Time No Known Allergies Allergy Verified 01/11/23 09:02 Review of Systems Review of Systems Yes all other systems are reviewed and are negative [facility] Past Medical History Medical History Cholecystectomy planned Depression Gastroparesis Headache IBS (irritable bowel syndrome) Surgical History H/O oral surgery History of esophagogastroduodenoscopy (EGD) Hx laparoscopic cholecystectomy Hx of colonoscopy Hx of tonsillectomy Family History Family History Mother Depression Anxiety Maternal Grandfather Heart disease Father Depression Brother Hypertension Social History Social History Household Members: None Alcohol intake: never Patient Tobacco Use Status: Never used Tobacco Smoked in Last 30 Days: No Use of substances other than those prescribed or required for medical reasons: Yes Substance Use Type: Marijuana Advance Directives: No Advance Directives Information Provided: No Patient : No service: No Current occupational status: employed 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 Oriented X3. No acute distress. Head: normocephalic, atraumatic. Eyes: Pupils equal, round and reactive to light. ENT: Pharynx normal. No tonsillar swelling or exudate. Neck: Normal inspection. Neck supple. CVS: Normal heart rate and rhythm. Pulses normal. Respiratory: No respiratory distress. Breath sounds normal. Abdomen: Soft and moderately tender to RUQ. No rebound or guarding. +BS x4 Skin: Skin warm and dry. Normal skin color. Normal skin turgor. No rashes. Extremities: No lower extremity edema. No joint swelling. Neuro/psych: Oriented X 3. No motor deficit. No sensory deficit. CN II-XII intact. Normal speech and cognition. Medical Decision Making Medical Decision Making [facility] Narrative: 32 y/o F with PMHx of gastroparesis presents with right upper quadrant pain for 2 days. Patient feels that this pain is outside of her usual discomfort from gastroparesis. She had her gallbladder removed in 2017 making gallbladder disease unlikely, however a retained stone is possible. Pancreatitis is considered but she does not drink alcohol. She denies fevers, chills, diarrhea, and N/V, making gastritis unlikely but possible. No urinary symptoms reported, UTI unlikely. Lab workup ordered which was unremarkable, including LFTs. Toradol ordered for pain. US of RUQ ordered to assess for possible retained stones. RUQ U/S showed normal CBD. She reports history of transverse colon issues since age 14 requiring multiple medication trials. She is planning on moving to [place] to see a specialist in motility. At this time she is stable for d/c home - she has tramadol at home. will add bentyl. encouraged f/u with GI and surgery. patient agrees w /plan Differential Diagnosis Differential Diagnoses: The differential diagnosis associated with the presentation includes Retained gallstone, pancreatitis, SBO, gastritis, gastroparesis exacerbation Admission/Observation Consideration of admission/observation: Escalation of care including admission/observation considered acute onset RUQ pain, considered admission Lab Data [facility] Lab Attestation statement: I reviewed the patient's lab results. no leukocytosis, no major metabolic derangements 02/06/23 09:52 02/06/23 09:52 Labs: Lab Results 02/06/23 02/06/23 02/06/23 Range/Units 09:52 09:52 10:32 WBC 9.9 (4.8-10.8) X10*3/uL RBC 4.38 (4.20-5.50) X10*6/uL Hgb 13.0 (12.0-16.0) g/dl Hct 39.2 (37.0-47.0) % MCV 89.5 (80.0-98.0) fL MCH 29.7 (27.0-33.0) pg MCHC 33.2 (31.0-35.0) g/dl RDW 12.2 (11.0-16.0) % Plt Count 257 (160-400) X10*3/uL MPV 11.5 (9.4-12.3) fL Immature Gran % (Auto) 0.2 (0.0-0.4) % Neut % (Auto) 66.3 (45-73) % Lymph % (Auto) 26.3 (20-40) % [place] % (Auto) 6.4 (2-11) % Eos % (Auto) 0.4 (0-4) % Baso % (Auto) 0.4 (0-2) % Lymph # (Auto) 2.6 (1.2-4.9) X10*3/uL [place] # (Auto) 0.6 (0.1-1.2) X10*3/uL Eos # (Auto) 0.0 (0.0-0.4) X10*3/uL Baso # (Auto) 0.0 (0.0-0.2) X10*3/uL Abs Immat Gran (auto) 0.02 (0.00-0.03) X10*3/uL Absolute Neuts (auto) 6.6 (2.0-8.3) x10*3/uL Absolute Nucleated RBC 0.000 (0.0-0.012) X10*3/uL Nucleated RBC % (auto) 0.0 (0.0-0.2) /100WBC Sodium 141 (135-145) mmol/L Potassium 3.7 (3.3-5.1) mmol/L Chloride 108 (96-108) mmol/L Carbon Dioxide 23 (22-29) mmol/L Anion Gap 14 (12-20) BUN 7 L (9-16) mg/dL Creatinine 0.80 (0.5-1.4) mg/dL Estim Creat Clear Calc 112.7 Estimated GFR > 60 Random Glucose 116 H (60-115) mg/dL Calcium 9.4 (8.4-10.2) mg/dL Total Bilirubin 0.3 (0.0-1.0) mg/dL Direct Bilirubin 0.1 (0.0-0.5) mg/dL AST 12 (5-31) U/L ALT 12 (0-31) U/L Alkaline Phosphatase 62 (39-117) U/L Total Protein 7.3 (6.5-8.0) g/dL Albumin 4.2 (3.5-5.0) g/dL Lipase 20 (8-78) U/L Urine Color Yellow Urine Appearance Clear Urine pH 5.5 (5.0-9.0) Ur Specific [place] 1.010 (1.005-1.025) Urine Protein Negative (Neg-Trace) mg/dL Urine Glucose (UA) Negative (Negative) mg/dL Urine Ketones Negative (Negative) mg/dL Urine Blood Negative (Negative) Urine Nitrite Negative (Negative) Ur Leukocyte Esterase Trace H (Negative) Urine RBC 0-2 (0-2) /HPF Urine WBC 0-5 (0-5) /HPF Ur Squamous Epith Cells 6-10 (0-2) /HPF Urine Bacteria Trace (None Seen) Hyaline Casts 0-2 (0-2) /LPF Urine Test (NEGATIVE) 02/06/23 Range/Units 10:32 WBC (4.8-10.8) X10*3/uL RBC (4.20-5.50) X10*6/uL Hgb (12.0-16.0) g/dl Hct (37.0-47.0) % MCV (80.0-98.0) fL MCH (27.0-33.0) pg MCHC (31.0-35.0) g/dl RDW (11.0-16.0) % Plt Count (160-400) X10*3/uL MPV (9.4-12.3) fL Immature Gran % (Auto) (0.0-0.4) % Neut % (Auto) (45-73) % Lymph % (Auto) (20-40) % [place] % (Auto) (2-11) % Eos % (Auto) (0-4) % Baso % (Auto) (0-2) % Lymph # (Auto) (1.2-4.9) X10*3/uL [place] # (Auto) (0.1-1.2) X10*3/uL Eos # (Auto) (0.0-0.4) X10*3/uL Baso # (Auto) (0.0-0.2) X10*3/uL Abs Immat Gran (auto) (0.00-0.03) X10*3/uL Absolute Neuts (auto) (2.0-8.3) x10*3/uL Absolute Nucleated RBC (0.0-0.012) X10*3/uL Nucleated RBC % (auto) (0.0-0.2) /100WBC Sodium (135-145) mmol/L Potassium (3.3-5.1) mmol/L Chloride (96-108) mmol/L Carbon Dioxide (22-29) mmol/L Anion Gap (12-20) BUN (9-16) mg/dL Creatinine (0.5-1.4) mg/dL Estim Creat Clear Calc Estimated GFR Random Glucose (60-115) mg/dL Calcium (8.4-10.2) mg/dL Total Bilirubin (0.0-1.0) mg/dL Direct Bilirubin (0.0-0.5) mg/dL AST (5-31) U/L ALT (0-31) U/L Alkaline Phosphatase (39-117) U/L Total Protein (6.5-8.0) g/dL Albumin (3.5-5.0) g/dL Lipase (8-78) U/L Urine Color Urine Appearance Urine pH (5.0-9.0) Ur Specific [place] (1.005-1.025) Urine Protein (Neg-Trace) mg/dL Urine Glucose (UA) (Negative) mg/dL Urine Ketones (Negative) mg/dL Urine Blood (Negative) Urine Nitrite (Negative) Ur Leukocyte Esterase (Negative) Urine RBC (0-2) /HPF Urine WBC (0-5) /HPF Ur Squamous Epith Cells (0-2) /HPF Urine Bacteria (None Seen) Hyaline Casts (0-2) /LPF Urine Test NEGATIVE (NEGATIVE) Independent Interpretation I performed an independent interpretation of an: Ultrasound Interpretation: normal appearing CBD, agree w/ radiology read Radiology Impression Discussion of test interpretation with radiology: I have reviewed the radiologist's reading. Radiologist Impression: ?US/US abdomen limited IMPRESSION: Status post cholecystectomy. No CBD dilatation. ? Pancreatic head and tail obscured by bowel gas shadowing. External Record Review External record reviewed: Office record, Outpatient record, Prior outpatient labs and Prior outpatient radiology Tests considered The following testing was considered but not selected: considered CT abd but she has had 6 [address] scans in the last couple of years Prescription Management I considered prescription management with: Pain Medication Chronic Conditions Patient?s care impacted by: Other (gastroparesis) Social Determinants Patient?s care significantly limited by Social Determinants of Health including: Other Social Determinant of Health Medications Administered Discontinued Medications Generic Name Dose Route Start Last Admin Trade Name Freq PRN Reason Stop Dose Admin Acetaminophen 975 mg 02/06/23 12:37 02/06/23 13:11 Acetaminophen 325 Mg Tablet PO 02/06/23 12:38 975 mg ONCE ONE Administration Al Hydroxide/Mg Hydroxide 30 ml 02/06/23 12:37 02/06/23 13:11 Magnesium Hydrox/Alum Hydrox 30 Ml Oral.Susp PO 02/06/23 12:38 30 ml ONCE ONE Administration Dicyclomine HCl 10 mg 02/06/23 12:37 02/06/23 13:11 Dicyclomine Hcl 10 Mg Capsule PO 02/06/23 12:38 10 mg ONCE ONE Administration Ketorolac Tromethamine 30 mg 02/06/23 10:19 02/06/23 10:30 Ketorolac Tromethamine 30 Mg/Ml Vial IM 02/06/23 10:20 30 mg ONCE ONE Administration Metoclopramide HCl 10 mg 02/06/23 12:37 02/06/23 13:11 Metoclopramide Hcl 10 Mg Tablet PO 02/06/23 12:38 10 mg ONCE ONE Administration Critical Care Time Critical Care Time Critical Care Time: No Discharge Plan Discharge Clinical Impression: Abdominal pain Patient Disposition: Home, Self-Care Instructions: Abdominal Pain (ED) Additional Instructions: Your abdominal ultrasound today was unremarkable. Your labs were normal. Recommend following up with your GI doctor and Surgeon. If you develop new or worsening symptoms call 911 or come back to the ER for further evaluation. Prescriptions: New dicyclomine 20 mg tablet 20 mg PO TID PRN (Reason: abdominal pain) Qty: 30 0RF No Action rizatriptan 10 mg tablet 5 - 10 mg PO Q2H PRN (Reason: migraine headache) 21 Days Qty: 12 3RF Rx Instructions: max 2 tabs per day or 4 tabs per week Motegrity 1 mg tablet 1 mg PO DAILY Qty: 30 1RF mirtazapine 15 mg tablet 15 mg PO BEDTIME 90 Days Qty: 90 1RF Rx Instructions: take 1/2 tab for 1 week then 1 tab after naproxen 500 mg tablet 500 mg PO BID PRN (Reason: pain) 7 Days Qty: 14 0RF ondansetron 8 mg tablet,disintegrating 8 mg PO Q8H PRN (Reason: nausea/vomiting) venlafaxine 75 mg capsule,extended release 24hr 75 mg PO DAILY lactulose 10 gram/15 mL (15 mL) solution 10 g PO BID PRN cyclobenzaprine 10 mg tablet 10 mg PO BID PRN (Reason: muscle spasm) 30 Days Qty: 60 1RF Rx Instructions: side effect is drowsiness. Do not take at work or while driving. Botox 100 unit recon soln 100 unit IM ONCE 84 Days Qty: 1 3RF Rx Instructions: inject up to 100 units into bilateral TMJ Referrals: Brian Bolanos NP [Primary Care Provider] -
[2023-02-06 10:20] LABS: Alanine Aminotransferase 12 U/L (0-31); Albumin Level 4.2 g/dL (3.5-5.0); Alkaline Phosphatase 62 U/L (39-117); Anion Gap 14 (12-20); Aspartate Amino Transferase 12 U/L (5-31); Bilirubin Direct 0.1 mg/dL (0.0-0.5); Bilirubin Total 0.3 mg/dL (0.0-1.0); Blood Urea Nitrogen 7 mg/dL (9-16); Calcium 9.4 mg/dL (8.4-10.2); Carbon Dioxide 23 mmol/L (22-29); Chloride 108 mmol/L (96-108); Creatinine Clr Calc Pharmacy 112.7; Estimated Glomerular Filt Rate > 60; Glucose Random 116 mg/dL (60-115); Lipase 20 U/L (8-78); Potassium 3.7 mmol/L (3.3-5.1); Sodium 141 mmol/L (135-145); Total Protein 7.3 g/dL (6.5-8.0)
[2023-02-06] MEDS: Ketorolac Tromethamine 30 MG/ML VIAL IM (10:30)
[2023-02-06 10:44] LABS: Appearance Urine Clear; Color Urine Yellow; Glucose Urine UA Negative (Negative); Leukocyte Esterase Urine Trace (Negative); Nitrite Urine Negative (Negative); PH 5.5 (5.0-9.0); UMIC TRIGGER UACC YES; Urine Blood Negative (Negative); Urine Ketones Negative (Negative); Urine Protein Negative (Neg-Trace)
[2023-02-06 10:46] LABS: UPreg QC Valid YES; Urine Pregnancy NEGATIVE (NEGATIVE)
[2023-02-06 10:47] LABS: Bacteria Urine Trace (None Seen); Hyaline Casts Urine 0-2 /LPF (0-2); RBC Urine 0-2 /HPF (0-2); WBC Urine 0-5 /HPF (0-5)
[2023-02-06] MEDS: Magnesium Hydrox/Alum Hydrox 30 ML ORAL.SUSP PO (13:11)
[2023-02-06] MEDS: Metoclopramide HCl 10 MG TABLET PO (13:11)
[2023-02-06] MEDS: Acetaminophen 325 MG TABLET 975 MG PO (13:11)
[2023-02-06] MEDS: Dicyclomine HCl 10 MG CAPSULE PO (13:11)
[2023-02-06 13:22] VITALS: BP 120/94; PULSE 67; TEMP 36.9; O2SAT 100
== END 2023-02-06 13:48 | disposition home or self-care (01) ==
PROVIDERS: Emergency Provider Emergency Medicine; PCP Nurse Practitioner Family
DX: R10.11 Right upper quadrant pain (principal); Z90.49 Acquired absence of other specified parts of digestive tract
CPT/HCPCS: 36415; 76705; 80048; 80076; 81001; 81025; 83690; 85025; 96372; 99284; J1885